=== PATIENT | female | born 1930 | race Caucasian/White ===

== ENCOUNTER 2018-11-21 11:15 | Inpatient (IN) | payer MEDICARE ==
[2018-11-21] MEDS: SODIUM CHLORIDE 0.9% 500 ML 500 ML IV SCH ×2 (12:14→13:50)
--- NOTE | 2018-11-21 12:26 | ED ---
General Adult HPI - General Chief complaint: Extremity Injury, Lower Stated complaint: RT knee pain Time Seen by Provider: 11/21/18 11:35 Source: EMS, RN notes reviewed Mode of arrival: ambulatory Limitations: altered mental status - History of Present Illness Initial comments: 88-year-old female with a past medical history of atrial fibrillation, dementia, non-Hodgkin's lymphoma presents to the emergency department for a chief complaint of right knee pain. Daughter is at bedside and relates much of history is patient does have dementia. She states that they moved out of their summer home yesterday on [address] and patient was up and down the stairs much more frequently than normal moving objects. States she was a little more confused yesterday than she normally is. Daughter states that she has chronic right knee pain from arthritis and has seen orthopedic for this. They recommend shots however she has not had any injections. They stated is always a little bit swollen. Denies any fevers at home.Patient has no other complaints at this time including shortness of breath, chest pain, abdominal pain, nausea or vomiting, headache, or visual changes. - Related Data Home Medications Medication Instructions Recorded Confirmed Atorvastatin [Lipitor] 10 mg PO DAILY 11/21/18 11/21/18 Calcium Carbonate/Vitamin D3 1 tab PO HS 11/21/18 11/21/18 [Calcium 600-Vit D3 400 Tablet] Cetirizine HCl [Zyrtec] 10 mg PO DAILY 11/21/18 11/21/18 Cyanocobalamin (Vitamin B-12) 1,000 mcg PO HS 11/21/18 11/21/18 [Vitamin B-12] Diltiazem HCl [Cartia Xt] 120 mg PO DAILY 11/21/18 11/21/18 Donepezil HCl [Aricept] 10 mg PO HS 11/21/18 11/21/18 Lavender Chew Tabs 1 tab PO HS 11/21/18 11/21/18 Meclizine HCl 12.5 mg PO DAILY PRN 11/21/18 11/21/18 Melatonin 5 mg PO HS PRN 11/21/18 11/21/18 Memantine [Namenda] 10 mg PO BID 11/21/18 11/21/18 Metoprolol Tartrate [Lopressor] 50 mg PO BID 11/21/18 11/21/18 Rivaroxaban [Xarelto] 20 mg PO HS 11/21/18 11/21/18 Allergies Allergy/AdvReac Type Severity Reaction Status Date / Time Penicillins Allergy Rash/Hives Verified 11/21/18 11:34 Sulfa (Sulfonamide Allergy Rash/Hives Verified 11/21/18 11:34 Antibiotics) Review of Systems ROS Statement: Those systems with pertinent positive or pertinent negative responses have been documented in the HPI. ROS Other: All systems not noted in ROS Statement are negative. Past Medical History Past Medical History: Atrial Fibrillation, Cancer, Dementia History of Any Multi-Drug Resistant Organisms: None Reported Past Surgical History: Hysterectomy Smoking Status: Former smoker Past Alcohol Use History: None Reported Past Drug Use History: None Reported General Exam Limitations: altered mental status General appearance: alert, in no apparent distress Head exam: Present: atraumatic, normocephalic, normal inspection Eye exam: Present: normal appearance, PERRL, EOMI. Absent: scleral icterus, conjunctival injection, periorbital swelling ENT exam: Present: normal exam, normal oropharynx, mucous membranes moist, TM's normal bilaterally, normal external ear exam Neck exam: Present: normal inspection, full ROM. Absent: tenderness, meningismus, lymphadenopathy Respiratory exam: Present: normal lung sounds bilaterally. Absent: respiratory distress, wheezes, rales, rhonchi, stridor Cardiovascular Exam: Present: regular rate, normal rhythm, normal heart sounds. Absent: systolic murmur, diastolic murmur, rubs, gallop, clicks GI/Abdominal exam: Present: soft, normal bowel sounds. Absent: distended, tenderness, guarding, rebound, rigid Course Vital Signs 11/21/18 11/21/18 11:19 14:44 Temperature 99.8 F H Pulse Rate 82 81 Respiratory 18 18 Rate Blood Pressure 121/84 137/77 O2 Sat by Pulse 94 L 94 L Oximetry EKG Findings - EKG Comments: EKG Findings:: Sinus rhythm, PVCs, ventricular rate 81, Pr interval 158, QTC 476 Procedures - Joint Aspiration/Injection Consent Obtained: verbal consent Indications: to relieve pressure/pain Side of Body: right Joint Aspirated: knee Ultrasound Guidance: No Skin Prep: Chlorhexidine (and sterile drape) Local Anesthesia Used: Lidocaine 1% Amount of Anesthesia Used (mLs): 2 Needle Size Used: 18G Syringe Size Used: 10cc Fluid Obtained: viscous Total Fluid Obtained (mls): 7 Patient Tolerated Procedure: well, no complications Medical Decision Making - Medical Decision Making 88-year-old female with past medical history atrial for depression, dementia, non-Hodgkin's a coma presents for right knee pain. Due to dementia daughter relayed much of the history. The patient did walk more yesterday and walk more stairs than normal. However today patient started to have severe right knee pain and was unable to bear weight on this. This prompted the daughter to call EMS as she could not get her out of the house to go to the doctor's office. On presentation patient has a temperature of 99.8 however this was 98.7 and 99.2 on repeat. Exam reveals an edematous right knee without erythema. Mild warmth. CBC shows a normal white blood cell count of 9. CMP revealed evidence of mild dehydration. Arthrocentesis was performed to evaluate synovial fluid and relieve pressure. Only 7 mL was obtained. I did speak with orthopedics PA about this. At this time he does not think this is a septic arthritis and his arm and starting antibiotics. States they're comfortable seeing her in the office but if she cannot walk she may need a medicine admit. I did attempt to walk the patient and she was unable to get a step secondary to pain. Daughter does not feel she can take patient home. - Lab Data Result diagrams: 11/21/18 12:09 11/21/18 12:09 Lab Results 11/21/18 11/21/18 11/21/18 Range/Units 12:09 12:09 12:09 WBC 9.1 (3.8-10.6) k/uL RBC 4.29 (3.80-5.40) m/uL Hgb 13.0 (11.4-16.0) gm/dL Hct 38.7 (34.0-46.0) % MCV 90.2 (80.0-100.0) fL MCH 30.4 (25.0-35.0) pg MCHC 33.7 (31.0-37.0) g/dL RDW 13.9 (11.5-15.5) % Plt Count 182 (150-450) k/uL Neutrophils % 70 % Lymphocytes % 21 % Monocytes % 6 % Eosinophils % 1 % Basophils % 0 % Neutrophils # 6.4 (1.3-7.7) k/uL Lymphocytes # 1.9 (1.0-4.8) k/uL Monocytes # 0.6 (0-1.0) k/uL Eosinophils # 0.1 (0-0.7) k/uL Basophils # 0.0 (0-0.2) k/uL PT (9.0-12.0) sec INR (<1.2) APTT (22.0-30.0) sec Sodium 141 (137-145) mmol/L Potassium 4.0 (3.5-5.1) mmol/L Chloride 105 (98-107) mmol/L Carbon Dioxide 27 (22-30) mmol/L Anion Gap 9 mmol/L BUN 23 H (7-17) mg/dL Creatinine 1.03 (0.52-1.04) mg/dL Est GFR (CKD-EPI)AfAm 57 (>60 ml/min/1.73 sqM) Est GFR (CKD-EPI)NonAf 49 (>60 ml/min/1.73 sqM) Glucose 123 H (74-99) mg/dL Plasma Lactic Acid Ben 0.9 (0.7-2.0) mmol/L Calcium 10.2 (8.4-10.2) mg/dL Total Bilirubin 2.3 H (0.2-1.3) mg/dL AST 24 (14-36) U/L ALT 27 (9-52) U/L Alkaline Phosphatase 95 (38-126) U/L Total Protein 7.0 (6.3-8.2) g/dL Albumin 4.1 (3.5-5.0) g/dL Urine Color Urine Appearance (Clear) Urine pH (5.0-8.0) Ur Specific Col[place] (1.001-1.035) Urine Protein (Negative) Urine Glucose (UA) (Negative) Urine Ketones (Negative) Urine Blood (Negative) Urine Nitrite (Negative) Urine Bilirubin (Negative) Urine Urobilinogen (<2.0) mg/dL Ur Leukocyte Esterase (Negative) Urine RBC (0-5) /hpf Urine WBC (0-5) /hpf Ur Squamous Epith Cells (0-4) /hpf Urine Bacteria (None) /hpf Hyaline Casts (0-2) /lpf Urine Mucus (None) /hpf Fluid Source Fluid Color Fluid Appearance Fluid RBC /uL Fluid Nucleated Cells /uL Fluid Polynuclear WBCs % Fluid Mononuclear WBCs % 11/21/18 11/21/18 11/21/18 Range/Units 12:09 12:09 15:22 WBC (3.8-10.6) k/uL RBC (3.80-5.40) m/uL Hgb (11.4-16.0) gm/dL Hct (34.0-46.0) % MCV (80.0-100.0) fL MCH (25.0-35.0) pg MCHC (31.0-37.0) g/dL RDW (11.5-15.5) % Plt Count (150-450) k/uL Neutrophils % % Lymphocytes % % Monocytes % % Eosinophils % % Basophils % % Neutrophils # (1.3-7.7) k/uL Lymphocytes # (1.0-4.8) k/uL Monocytes # (0-1.0) k/uL Eosinophils # (0-0.7) k/uL Basophils # (0-0.2) k/uL PT 11.0 (9.0-12.0) sec INR 1.0 (<1.2) APTT 27.8 (22.0-30.0) sec Sodium (137-145) mmol/L Potassium (3.5-5.1) mmol/L Chloride (98-107) mmol/L Carbon Dioxide (22-30) mmol/L Anion Gap mmol/L BUN (7-17) mg/dL Creatinine (0.52-1.04) mg/dL Est GFR (CKD-EPI)AfAm (>60 ml/min/1.73 sqM) Est GFR (CKD-EPI)NonAf (>60 ml/min/1.73 sqM) Glucose (74-99) mg/dL Plasma Lactic Acid Ben (0.7-2.0) mmol/L Calcium (8.4-10.2) mg/dL Total Bilirubin (0.2-1.3) mg/dL AST (14-36) U/L ALT (9-52) U/L Alkaline Phosphatase (38-126) U/L Total Protein (6.3-8.2) g/dL Albumin (3.5-5.0) g/dL Urine Color Yellow Urine Appearance Clear (Clear) Urine pH 5.5 (5.0-8.0) Ur Specific [place] 1.023 (1.001-1.035) Urine Protein Trace H (Negative) Urine Glucose (UA) Negative (Negative) Urine Ketones Negative (Negative) Urine Blood Negative (Negative) Urine Nitrite Negative (Negative) Urine Bilirubin Negative (Negative) Urine Urobilinogen <2.0 (<2.0) mg/dL Ur Leukocyte Esterase Small H (Negative) Urine RBC 7 H (0-5) /hpf Urine WBC 4 (0-5) /hpf Ur Squamous Epith Cells 1 (0-4) /hpf Urine Bacteria Rare H (None) /hpf Hyaline Casts 3 H (0-2) /lpf Urine Mucus Occasional H (None) /hpf Fluid Source Synovial Fluid Color Yellow Fluid Appearance Cloudy Fluid RBC 87658 /uL Fluid Nucleated Cells 28559 /uL Fluid Polynuclear WBCs 93 % Fluid Mononuclear WBCs 7 % Disposition Clinical Impression: Knee pain, Unable to bear weight Disposition: ADMITTED IP TO THIS HOSP Condition: Fair Is patient prescribed a controlled substance at d/c from ED?: No Referrals: Jd Hirsch MD [Primary Care Provider] - 1-2 days Time of Disposition: 17:23
[2018-11-21 12:37] LABS: Basophils % (A) 0 %; Eosinophils # (A) 0.1 k/uL (0-0.7); Eosinophils % (A) 1 %; HCT 38.7 % (34.0-46.0); Lymphocytes # (A) 1.9 k/uL (1.0-4.8); Lymphocytes % (A) 21 %; MCH 30.4 pg (25.0-35.0); MCHC 33.7 g/dL (31.0-37.0); MCV 90.2 fL (80.0-100.0); Mean Platelet Volume 7.4; Monocytes # (A) 0.6 k/uL (0-1.0); Monocytes % (A) 6 %; Neutrophils # (A) 6.4 k/uL (1.3-7.7); Neutrophils % (A) 70 %; Platelet Count 182 k/uL (150-450); RBC 4.29 m/uL (3.80-5.40); RDW 13.9 % (11.5-15.5); WBC 9.1 k/uL (3.8-10.6)
[2018-11-21 12:38] LABS: Appearance,Urine Clear (Clear); Bacteria,Urine Rare /hpf; Bilirubin,Urine Negative (Negative); Blood,Urine Negative (Negative); Color,Urine Yellow; Glucose,Urine (UA) Negative (Negative); Hyaline Casts,Urine 3 /lpf (0-2); Ketones,Urine Negative (Negative); Leukocyte Esterase,Urine Small (Negative); Mucus,Urine Occasional /hpf; Nitrite,Urine Negative (Negative); PH, Urine 5.5 (5.0-8.0); Protein,Urine Trace (Negative); RBC,Urine 7 /hpf (0-5); Specific Gravity,Urine 1.023 (1.001-1.035); Squamous Epithelial Cell,Urine 1 /hpf (0-4); Urobilinogen,Urine <2.0 mg/dL (<2.0); WBC,Urine 4 /hpf (0-5)
[2018-11-21 12:41] LABS: Partial Thromboplastin Time 27.8 sec (22.0-30.0)
[2018-11-21 12:46] LABS: Albumin 4.1 g/dL (3.5-5.0); Calcium 10.2 mg/dL (8.4-10.2); Total Bilirubin 2.3 mg/dL (0.2-1.3)
--- NOTE | 2018-11-21 13:16 | XR ---
EXAMINATION TYPE: XR chest 2V DATE OF EXAM: 11/21/2018 COMPARISON: 03/18/2009 INDICATION: Fever TECHNIQUE: Frontal and lateral views of the chest are obtained. FINDINGS: The heart size is normal. The pulmonary vasculature is normal. The lungs are clear. IMPRESSION: 1. No acute pulmonary process.
--- NOTE | 2018-11-21 13:18 | XR ---
EXAMINATION TYPE: XR knee 4V RT DATE OF EXAM: 11/21/2018 COMPARISON: None HISTORY: Pain TECHNIQUE: Three-view right knee FINDINGS: There is narrowing of the medial and lateral compartment joint space. Medial lateral femora l condylar spurring is present. There is loss patellofemoral joint space. There is some lateral sublu xation of the patella. Spurring from the patella is present. There is irregular bordered sclerotic area within the distal lateral metaphysis of the femur. There i s some elevation of the cortex. Additional workup is recommended. MRI with contrast is recommended. IMPRESSION: 1. Advanced degenerative changes greatest in the patellofemoral joint space. 2. Abnormal cortex and sclerosis with ill-defined border in the lateral femoral metaphysis. MRI with contrast of the knee to include this region is recommended for additional workup. Neoplastic process is not excluded.
[2018-11-21] MEDS ORDERED: LIDOCAINE 1% INJ 10MG/ML (20 ML MDV) SQ ONE (14:48)
[2018-11-21] MEDS ORDERED: MORPHINE SULFATE 4 MG/ML SYRINGE IVP STA (14:48)
[2018-11-21] MEDS ORDERED: SODIUM CHLORIDE 0.9% 500 ML 500 ML IV STA (15:37)
[2018-11-21 16:06] LABS: Appearance,BF Cloudy; Color,BF Yellow; Nucleated Cells, Body Fluid 54200 /uL; RBC, Body Fluid 10400 /uL
[2018-11-21 16:32] LABS: Mononuclear WBC,Body Fluid 7 %; Polynuclear WBC,Body Fluid 93 %; Total Cells Counted,Body Fluid 100
[2018-11-21] MEDS ORDERED: MORPHINE SULFATE 2 MG/ML SYRINGE IV PRN (17:18)
[2018-11-21] MEDS ORDERED: NALOXONE 0.4 MG/ML 1 ML VIAL IV PRN (17:18)
[2018-11-21] MEDS ORDERED: MECLIZINE 12.5 MG TAB PO PRN (18:43)
[2018-11-21] MEDS ORDERED: LORazepam 2 MG/ML INJ IV STA (18:44)
[2018-11-21] MEDS: SODIUM CHLORIDE 0.9% 1,000 ML IV SCH (18:53)
[2018-11-21] MEDS ORDERED: [UNRECOGNIZED DRUG - OTHER] PO SCH (21:00)
[2018-11-21] MEDS: LORazepam 2 MG/ML INJ IV PRN (22:51)
[2018-11-21] MEDS: MEMANTINE 10 MG TAB PO SCH (22:56)
[2018-11-21] MEDS: CALCIUM CARB-VIT D 500MG-200UN 1 EACH TAB PO SCH (22:56)
[2018-11-21] MEDS: DONEPEZIL 10 MG TAB PO SCH (22:56)
[2018-11-21] MEDS: CYANOCOBALAMIN 500 MCG TAB PO SCH (22:56)
[2018-11-21] MEDS: METOPROLOL TARTRATE 50 MG TAB PO SCH (22:57)
[2018-11-22 00:42] LABS: Total Protein, Body Fluid 3500 mg/dL
[2018-11-22 01:57] LABS: Glucose, BF Source Body Fluid; Glucose, Body Fluid 113 mg/dL
[2018-11-22] MEDS: DILTIAZEM CD 120 MG CAP.ER.24H PO SCH (09:01)
[2018-11-22] MEDS: METOPROLOL TARTRATE 50 MG TAB PO SCH ×2 (09:02→21:25)
[2018-11-22] MEDS: ATORVASTATIN 10 MG TAB PO SCH (09:02)
[2018-11-22] MEDS: MEMANTINE 10 MG TAB PO SCH ×2 (09:02→21:25)
[2018-11-22] MEDS: LORATADINE 10 MG TAB PO SCH (09:02)
[2018-11-22] MEDS: SODIUM CHLORIDE 0.9% 1,000 ML IV SCH ×2 (12:13→22:39)
[2018-11-22] MEDS: ACETAMINOPHEN TAB 325 MG TAB PO PRN (14:56)
--- NOTE | 2018-11-22 17:52 | P.CNOR ---
History of Present Illness - [facility] Consult date: 11/22/18 Requesting physician: Chase Verduzco Consult reason: joint pain History of present illness: Patient is a pleasant 88-year-old female seen at bedside this afternoon in consultation for right knee pain. She was admitted through the emergency department yesterday 11/21/2018 with a chief complaint of right knee pain. She has a past medical history of atrial fibrillation, dementia, and non-Hodgkin's lymphom. Her Daughter is at bedside and relates much of history as patient does have dementia. She states that they moved out of their summer home on 11/20/2018 on [address] and patient was up and down the stairs much more frequently than normal moving objects. Daughter states that she has chronic right knee pain from arthritis and has seen orthopedics. She continues to have significant right knee pain with range of motion today when seen at bedside. She is denying any fever or chills. She denies any redness of the knee. She has no history of gout. They stated is always a little bit swollen. Patient has no other complaints at this time including shortness of breath, chest pain, abdominal pain, nausea or vomiting, headache, or visual changes. Review of Systems All systems: negative Constitutional: Denies chills, Denies fever Eyes: denies blurred vision, denies pain Ears, nose, mouth and throat: Denies headache, Denies sore throat Cardiovascular: Denies chest pain, Denies shortness of breath Respiratory: Denies cough Gastrointestinal: Denies abdominal pain, Denies diarrhea, Denies nausea, Denies vomiting Genitourinary: Denies dysuria, Denies hematuria Musculoskeletal: Denies myalgias Integumentary: Denies pruritus, Denies rash Neurological: Denies numbness, Denies weakness Psychiatric: Denies anxiety, Denies depression Endocrine: Denies fatigue, Denies weight change Past Medical History Past Medical History: Atrial Fibrillation, Cancer, Dementia, Hyperlipidemia, Hy pertension, Osteoarthritis (OA) Additional Past Medical History / Comment(s): non hodgkins, 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 History of Any Multi-Drug Resistant Organisms: None Reported Past Surgical History: Bowel Resection, Hysterectomy, Orthopedic Surgery Past Anesthesia/Blood Transfusion Reactions: No Reported Reaction Smoking Status: Former smoker Past Alcohol Use History: None Reported Past Drug Use History: None Reported - Past Family History Mother Family Medical History: Cancer Additional Family Medical History / Comment(s): lung CA Father Family Medical History: CVA/TIA, Diabetes Mellitus Medications and Allergies Home Medications Medication Instructions Recorded Confirmed Type Atorvastatin [Lipitor] 10 mg PO DAILY 11/21/18 11/21/18 History Calcium Carbonate/Vitamin D3 1 tab PO HS 11/21/18 11/21/18 History [Calcium 600-Vit D3 400 Tablet] Cetirizine HCl [Zyrtec] 10 mg PO DAILY 11/21/18 11/21/18 History Cyanocobalamin (Vitamin B-12) 1,000 mcg PO HS 11/21/18 11/21/18 History [Vitamin B-12] Diltiazem HCl [Cartia Xt] 120 mg PO DAILY 11/21/18 11/21/18 History Donepezil HCl [Aricept] 10 mg PO HS 11/21/18 11/21/18 History Lavender Chew Tabs 1 tab PO HS 11/21/18 11/21/18 History Meclizine HCl 12.5 mg PO DAILY PRN 11/21/18 11/21/18 History Melatonin 5 mg PO HS PRN 11/21/18 11/21/18 History Memantine [Namenda] 10 mg PO BID 11/21/18 11/21/18 History Metoprolol Tartrate [Lopressor] 50 mg PO BID 11/21/18 11/21/18 History Rivaroxaban [Xarelto] 20 mg PO HS 11/21/18 11/21/18 History Allergies Allergy/AdvReac Type Severity Reaction Status Date / Time Penicillins Allergy Rash/Hives Verified 11/21/18 11:34 Sulfa (Sulfonamide Allergy Rash/Hives Verified 11/21/18 11:34 Antibiotics) Physical Examination Inspection of the right knee shows no erythema or deformity. There is mild to moderate effusion. She has pain with minimal range of motion of the right knee and is difficult to examine her fully. She is tender at the medial and lateral joint lines. The knee is not hot to touch. She has patellar apprehension. The calf is soft nontender. 2+ dorsalis pedis pulses present and less than 2 second capillary refill is present. Motor and sensation appear to be grossly intact throughout the right lower extremity. Results X-rays of the right knee show advanced [id number] tricompartmental degenerative joint disease osteoarthritis. There is also an area of cortical irregularity at the distal femoral metaphysis. - Labs Labs: Microbiology - Last 24 Hours (Table) 11/21/18 12:09 Blood Culture - Preliminary Blood No Growth after 24 hours 11/21/18 15:22 Gram Stain - Preliminary Knee - Right Body Fluid Culture - Preliminary 11/21/18 12:09 Urine Culture - Preliminary Urine,Voided H & H 11/21/18 Range/Units 12:09 Hgb 13.0 (11.4-16.0) gm/dL Hct 38.7 (34.0-46.0) % Coagulation 11/21/18 Range/Units 12:09 INR 1.0 (<1.2) Result Diagrams: 11/21/18 12:09 11/21/18 12:09 - Diagnostic results Knee x-ray: report reviewed, image reviewed Assessment and Plan (1) Knee pain Narrative/Plan: MRI with and without contrast of the right knee has been ordered per radiologist's recommendation. Would recommend continue conservative management including anti-inflammatories if patient can tolerate and okay with primary team. She may also utilize ice and a compressive knee sleeve. Should the MRI be benign may consider corticosteroid injection of the right knee. We'll continue to make recommendations and follow. Current Visit: Yes Status: Acute Priority: Medium Code(s): M25.569 - PAIN IN UNSPECIFIED KNEE SNOMED Code(s): 27579293 Time with Patient: Less than 30
[2018-11-22] MEDS: LORazepam 2 MG/ML INJ IV PRN (18:24)
--- NOTE | 2018-11-22 18:45 | HP ---
HISTORY AND PHYSICAL CHIEF COMPLAINT: Acute knee pain, confusion and dehydration. HISTORY OF PRESENT ILLNESS: This is another admission for this 88-year-old white female who has a history of hypertension and dementia. Everything was fine until she woke up on the day of admission with an extremely painful and swollen right knee. She came to the emergency room, where it was aspirated. She was quite agitated and it was decided that she should be admitted for management of her delirium while treating the knee, where pyarthrosis was a possibility. REVIEW OF SYSTEMS: Review of systems cannot be obtained reliably. Her daughter states she has not been having any headaches, chest pain, shortness of breath, abdominal pain, vomiting, diarrhea, urinary complaints, etc. Past medical history, family history, and personal and social histories reveal that she is ALLERGIC TO PENICILLIN and SULFA. She has been on: 1. Cartia XT 120 mg once a day. 2. Xarelto 20 mg once a day. 3. Atorvastatin 10 once a day. 4. Donepezil 10 mg at bedtime. 5. Metoprolol 50 mg twice a day. 6. Namenda 10 mg twice a day. 7. Calcium. 8. Vitamin B12. History is otherwise unremarkable. She has smoked in the past, but it has been years. PHYSICAL EXAMINATION: Blood pressure 124/78, pulse 54, respirations 16. She is afebrile. In general she appeared to be well developed, well nourished, in no acute distress. She was agitated. Head, ears, eyes, nose, mouth and throat were normal. Neck was supple. Chest was clear. Cardiac exam was normal. The abdomen was soft and nontender. Right knee was swollen with a large effusion. It was not particularly erythematous, but there was tenderness. She had a lot of discomfort to movement. IMPRESSION: 1. Acute arthritis of the right knee, etiology unknown. 2. Dementia. 3. Dehydration. PLAN: 1. Bed rest. 2. IV fluids. 3. Await results of arthrocentesis. 4. Orthopedic consult. MMODL / IJN: [id number] /
--- NOTE | 2018-11-22 18:50 | PN ---
PROGRESS NOTE CHIEF COMPLAINT: Acute arthritis of right knee, dehydration and dementia with delirium. HISTORY OF PRESENT ILLNESS: This lady is currently resting comfortably after sedation. She is very confused when she is aroused. Right knee is still apparently very irritable. PHYSICAL EXAMINATION: Right knee is still swollen and tender. It is not particularly erythematous. Chest is clear. Cardiac exam is normal. Abdomen is soft, nontender. IMPRESSION: 1. Acute arthritis of the right knee. 2. Dementia. 3. Delirium. PLAN: Await results of arthrocentesis and ortho consult. MMODL / IJN: [id number] /
[2018-11-22] MEDS: CYANOCOBALAMIN 500 MCG TAB PO SCH (21:25)
[2018-11-22] MEDS: DONEPEZIL 10 MG TAB PO SCH (21:25)
[2018-11-22] MEDS: CALCIUM CARB-VIT D 500MG-200UN 1 EACH TAB PO SCH (21:25)
[2018-11-23] MEDS: METOPROLOL TARTRATE 50 MG TAB PO SCH ×2 (10:14→23:06)
[2018-11-23] MEDS: LORATADINE 10 MG TAB PO SCH (10:15)
[2018-11-23] MEDS: DILTIAZEM CD 120 MG CAP.ER.24H PO SCH (10:15)
[2018-11-23] MEDS: MEMANTINE 10 MG TAB PO SCH ×2 (10:15→23:06)
[2018-11-23] MEDS: ATORVASTATIN 10 MG TAB PO SCH (10:15)
[2018-11-23] MEDS: LORazepam 2 MG/ML INJ IV PRN ×2 (16:51→23:05)
[2018-11-23] MEDS: CYANOCOBALAMIN 500 MCG TAB PO SCH (23:06)
[2018-11-23] MEDS: CALCIUM CARB-VIT D 500MG-200UN 1 EACH TAB PO SCH (23:06)
[2018-11-23] MEDS: DONEPEZIL 10 MG TAB PO SCH (23:06)
[2018-11-23] MEDS: RIVAROXABAN 20 MG TAB PO SCH (23:06)
[2018-11-23] MEDS: SODIUM CHLORIDE 0.9% 1,000 ML IV SCH (23:34)
[2018-11-24] MEDS: MEMANTINE 10 MG TAB PO SCH ×2 (09:45→20:53)
[2018-11-24] MEDS: METOPROLOL TARTRATE 50 MG TAB PO SCH ×2 (09:45→20:53)
[2018-11-24] MEDS: LORATADINE 10 MG TAB PO SCH (09:45)
[2018-11-24] MEDS: ATORVASTATIN 10 MG TAB PO SCH (09:45)
[2018-11-24] MEDS: DILTIAZEM CD 120 MG CAP.ER.24H PO SCH (09:45)
[2018-11-24] MEDS: methylPREDNISolone 4 MG TAB TAPER PO SCH (11:21)
--- NOTE | 2018-11-24 15:00 | P.PN ---
Subjective Progress Note Date: 11/24/18 Principal diagnosis: Right knee pain Patient is seen at bedside this morning. We are following for her for her right knee pain. She was unable to tolerate the MRI. Her knee pain has improved per staff and her daughter who is at bedside. There are no new complaints. Objective - Vital Signs Vital signs: Vital Signs Temp 97.9 F 11/24/18 07:00 Pulse 90 11/24/18 08:30 Resp 16 11/24/18 08:30 BP 116/79 11/24/18 07:00 Pulse Ox 94 L 11/24/18 07:00 Intake & Output 11/23/18 11/24/18 11/24/18 18:59 06:59 18:59 Output Total 200 200 Balance -200 -200 Output: Urine 200 200 Other: Voiding Method Bedside Commode Bedside Commode Diaper Diaper # Voids 1 1 1 - Exam The knee is benign to inspection. It is not hot to touch. No erythema or echymosis. Improved passive ROM with flexion to 80 and full extension. NVI. Calf SNT. 2+ DP pulse - Constitutional General appearance: Present: no acute distress - Labs CBC & Chem 7: 11/21/18 12:09 11/21/18 12:09 Labs: Microbiology - Last 24 Hours (Table) 11/21/18 12:09 Blood Culture - Preliminary Blood No Growth after 72 hours Assessment and Plan (1) Knee pain Narrative/Plan: She has improved with her pain and likely has an acute exacerbation of knee OA/DJD. She may try a medrol dose pack and progress with activity as tolerated. She may f/u as an out patient. We will revisit if she worsens or requested. Current Visit: Yes Status: Acute Priority: Medium Code(s): M25.569 - PAIN IN UNSPECIFIED KNEE SNOMED Code(s): 58712447 Time with Patient: Less than 30
--- NOTE | 2018-11-24 16:32 | PN ---
PROGRESS NOTE CHIEF COMPLAINT: Dehydration, syncope, dementia and acute arthritis of the right knee. HISTORY OF PRESENT ILLNESS: This lady is doing a little bit better. Rehydration is occurring. So far, studies on the joint fluid from the right knee have been nondiagnostic. She is being seen by Orthopedics. PHYSICAL EXAMINATION: Chest is clear. Cardiac exam is normal. Abdomen is soft and nontender. Right knee is still hypertrophic and somewhat irritable, but not inflamed. IMPRESSION: 1. Acute arthritis of the right knee. 2. Dementia. 3. Dehydration. 4. Syncope. PLAN: Continue with rehydration, physical therapy and await further recommendations from Orthopedics. She will probably have to go to Rehab after this hospitalization. MMODL / IJN: [id number] /
--- NOTE | 2018-11-24 20:14 | PN ---
PROGRESS NOTE CHIEF COMPLAINT: Dehydration, agitation and acute arthritis of the right knee. HISTORY OF PRESENT ILLNESS: This lady is a little more comfortable and having a little bit less pain. Studies on her knee suggest that this is just an acute osteoarthritis. PHYSICAL EXAMINATION: She is confused, but she is arousable. Chest is clear. Cardiac exam is normal. Abdomen is soft, nontender. Right knee seems to be a little bit smaller and a little less warm. IMPRESSION: 1. Acute osteoarthritis of the right knee. 2. Dementia. 3. Delirium. PLAN: 1. Will stop the Ativan. 2. She has been started on a Medrol Dosepak. 3. She has been referred for discharge planning. MMODL / IJN: [id number] /
[2018-11-24] MEDS: SODIUM CHLORIDE 0.9% 1,000 ML IV SCH (20:53)
[2018-11-24] MEDS: CYANOCOBALAMIN 500 MCG TAB PO SCH (20:53)
[2018-11-24] MEDS: MELATONIN 5 MG TABLET PO PRN (20:53)
[2018-11-24] MEDS: DONEPEZIL 10 MG TAB PO SCH (20:53)
[2018-11-24] MEDS: CALCIUM CARB-VIT D 500MG-200UN 1 EACH TAB PO SCH (20:53)
[2018-11-24] MEDS: RIVAROXABAN 20 MG TAB PO SCH (20:53)
[2018-11-25] MEDS: methylPREDNISolone 4 MG TAB TAPER PO SCH (09:17)
[2018-11-25] MEDS: METOPROLOL TARTRATE 50 MG TAB PO SCH ×2 (09:17→20:15)
[2018-11-25] MEDS: LORATADINE 10 MG TAB PO SCH (09:17)
[2018-11-25] MEDS: MEMANTINE 10 MG TAB PO SCH ×2 (09:17→20:15)
[2018-11-25] MEDS: ATORVASTATIN 10 MG TAB PO SCH (09:17)
[2018-11-25] MEDS: DILTIAZEM CD 120 MG CAP.ER.24H PO SCH (09:17)
--- NOTE | 2018-11-25 15:26 | PN ---
PROGRESS NOTE CHIEF COMPLAINT: Acute arthritis right knee and delirium. HISTORY OF PRESENT ILLNESS: This lady is doing a lot better. and she is doing well. She is starting to be able to walk on the knee. PHYSICAL EXAM: Knee was less intensely swollen and erythematous. Chest is clear. Cardiac exam is normal. IMPRESSION: 1. Acute arthritis of the right knee. 2. Dementia. 3. Delirium. PLAN: Continue to increase activity and she may be going to a snf after discharge. MMODL / IJN: [id number] /
[2018-11-25] MEDS: ACETAMINOPHEN TAB 325 MG TAB PO PRN (16:39)
[2018-11-25] MEDS ORDERED: HALOPERIDOL LACTATE 5 MG/ML 1 ML VIAL IM PRN (17:20)
[2018-11-25] MEDS: DONEPEZIL 10 MG TAB PO SCH (20:15)
[2018-11-25] MEDS: CYANOCOBALAMIN 500 MCG TAB PO SCH (20:15)
[2018-11-25] MEDS: CALCIUM CARB-VIT D 500MG-200UN 1 EACH TAB PO SCH (20:15)
[2018-11-25] MEDS: MELATONIN 5 MG TABLET PO PRN (20:16)
[2018-11-25] MEDS: SODIUM CHLORIDE 0.9% 1,000 ML IV SCH (20:27)
[2018-11-25] MEDS: RIVAROXABAN 15 MG TAB PO SCH (22:28)
[2018-11-26] MEDS: LORATADINE 10 MG TAB PO SCH (08:47)
[2018-11-26] MEDS: DILTIAZEM CD 120 MG CAP.ER.24H PO SCH (08:47)
[2018-11-26] MEDS: METOPROLOL TARTRATE 50 MG TAB PO SCH ×2 (08:47→20:56)
[2018-11-26] MEDS: methylPREDNISolone 4 MG TAB TAPER PO SCH (08:47)
[2018-11-26] MEDS: ACETAMINOPHEN TAB 325 MG TAB PO PRN ×2 (08:47→16:41)
[2018-11-26] MEDS: MEMANTINE 10 MG TAB PO SCH ×2 (08:47→20:56)
[2018-11-26] MEDS: ATORVASTATIN 10 MG TAB PO SCH (08:47)
--- NOTE | 2018-11-26 19:43 | PN ---
PROGRESS NOTE DATE OF SERVICE: 11/26/2018. CHIEF COMPLAINT: Mental status changes, delirium, dementia and acute arthritis of the right knee. HISTORY OF PRESENT ILLNESS: This lady is doing a little bit better. She is more awake and alert and the knee is not bothering her nearly as much. PHYSICAL EXAMINATION: Color is good. Chest is clear. Vital signs are normal. Abdomen is soft, nontender. the knee is still hypertrophic, but not red or hot. She does have decreased range of motion in the knee. IMPRESSION: 1. Acute osteoarthritis, right knee. 2. Dementia. 3. Delirium. PLAN: Probably discharge tomorrow either home with rehab or to rehab facility. MMODL / IJN: [id number] /
[2018-11-26] MEDS: MELATONIN 5 MG TABLET PO PRN (20:56)
[2018-11-26] MEDS: CYANOCOBALAMIN 500 MCG TAB PO SCH (20:56)
[2018-11-26] MEDS: CALCIUM CARB-VIT D 500MG-200UN 1 EACH TAB PO SCH (20:56)
[2018-11-26] MEDS: DONEPEZIL 10 MG TAB PO SCH (20:56)
[2018-11-26] MEDS: SODIUM CHLORIDE 0.9% 1,000 ML IV SCH ×2 (21:01→21:02)
[2018-11-26] MEDS: RIVAROXABAN 15 MG TAB PO SCH (21:50)
[2018-11-26] MEDS ORDERED: LORazepam 2 MG/ML INJ IM PRN (23:59)
[2018-11-27] MEDS: SODIUM CHLORIDE 0.9% 1,000 ML IV SCH ×2 (09:21→21:09)
[2018-11-27] MEDS: MEMANTINE 10 MG TAB PO SCH ×2 (09:22→20:36)
[2018-11-27] MEDS: LORATADINE 10 MG TAB PO SCH (09:22)
[2018-11-27] MEDS: METOPROLOL TARTRATE 50 MG TAB PO SCH ×2 (09:22→20:36)
[2018-11-27] MEDS: ATORVASTATIN 10 MG TAB PO SCH (09:22)
[2018-11-27] MEDS: DILTIAZEM CD 120 MG CAP.ER.24H PO SCH (09:22)
[2018-11-27] MEDS: methylPREDNISolone 4 MG TAB TAPER PO SCH (09:23)
[2018-11-27 10:37] VITALS: RESP 16
[2018-11-27 14:56] VITALS: PULSE 81; TEMP 97.9
--- NOTE | 2018-11-27 19:49 | PN ---
PROGRESS NOTE CHIEF COMPLAINT: Acute arthritis of the right knee, dementia and delirium. HISTORY OF PRESENT ILLNESS: This lady was doing well until last night; she suddenly became extremely agitated and the Haldol did not help. Ativan was administered and she rested the rest of the night. Her daughter is making arrangements for her to go to a [facility] for [facility]hab. PHYSICAL EXAMINATION: Chest is clear. Cardiac exam is normal. The abdomen is nontender. IMPRESSION: 1. Acute osteoarthritis of the right knee. 2. Delirium. 3. Dementia. PLAN: Work on a discharge plan and location. MMODL / IJN: [id number] /
[2018-11-27] MEDS: CYANOCOBALAMIN 500 MCG TAB PO SCH (20:36)
[2018-11-27] MEDS: CALCIUM CARB-VIT D 500MG-200UN 1 EACH TAB PO SCH (20:36)
[2018-11-27] MEDS: RIVAROXABAN 15 MG TAB PO SCH (20:36)
[2018-11-27] MEDS: DONEPEZIL 10 MG TAB PO SCH (20:36)
[2018-11-27] MEDS: MELATONIN 5 MG TABLET PO PRN (20:39)
[2018-11-28] MEDS: MEMANTINE 10 MG TAB PO SCH (07:40)
[2018-11-28] MEDS: ATORVASTATIN 10 MG TAB PO SCH (07:40)
[2018-11-28] MEDS: methylPREDNISolone 4 MG TAB TAPER PO SCH (07:40)
[2018-11-28] MEDS: DILTIAZEM CD 120 MG CAP.ER.24H PO SCH (07:40)
[2018-11-28] MEDS: METOPROLOL TARTRATE 50 MG TAB PO SCH (07:40)
[2018-11-28] MEDS: LORATADINE 10 MG TAB PO SCH (07:40)
[2018-11-28] MEDS: SODIUM CHLORIDE 0.9% 1,000 ML IV SCH (07:41)
[2018-11-28 07:47] VITALS: BP 145/84
--- NOTE | 2018-11-28 13:35 | DS ---
DISCHARGE SUMMARY CHIEF COMPLAINT: Acute pain of the right knee with delirium, dehydration and dementia. HISTORY OF PRESENT ILLNESS AND PHYSICAL EXAM: Details of this lady's history and physical can be found in the initial workup. LABORATORY STUDIES: While she was in the hospital she had laboratory studies, details of which can be found in the laboratory section of her chart. COURSE IN HOSPITAL: After admission she was placed on bedrest, started on intravenous fluids and she was seen by Orthopedics. She had an arthrocentesis which failed to demonstrate any other possible etiologies including infection, gout, etc., and it was determined that she had an acute osteoarthritic flare up. While she was in the hospital, she was rehydrated and she had difficulty with delirium, particularly at night. It was the daughter's feeling that she could benefit from rehab and she was lined up to go to [facility] on the for physical therapy and rehab. FINAL DIAGNOSES: 1. Acute osteoarthritis of the right knee. 2. Dehydration. 3. Delirium. 4. Dementia. 5. History of hypertension. OPERATIONS: None. CONSULTATION: Orthopedics. She is improved. MMODL / IJN: [id number] /
== END 2018-11-28 16:01 | DRG 880 ==
LOC: EC 11:15 → 4SSUR 17:50 → OBSVTOIN 11-24 08:25
PROVIDERS: ADMIT Family Medicine; ATTEND Family Medicine
PROC: 0S9C3ZX Drainage of Right Knee Joint, Percutaneous Approach, Diagnostic (ICD-10-PCS; principal; 2018-11-21)
DX: F05 Delirium due to known physiological condition (principal); M17.11 Unilateral primary osteoarthritis, right knee; E78.5 Hyperlipidemia, unspecified; E86.0 Dehydration; R45.1 Restlessness and agitation; F03.90 Unspecified dementia, unspecified severity, without behavioral disturbance, psychotic disturbance, mood disturbance, and anxiety; G89.29 Other chronic pain; I10 Essential (primary) hypertension; I48.91 Unspecified atrial fibrillation; Z79.01 Long term (current) use of anticoagulants; Z79.899 Other long term (current) drug therapy; Z80.1 Family history of malignant neoplasm of trachea, bronchus and lung; Z83.3 Family history of diabetes mellitus; Z85.72 Personal history of non-Hodgkin lymphomas; Z87.891 Personal history of nicotine dependence; Z90.710 Acquired absence of both cervix and uterus; Z90.49 Acquired absence of other specified parts of digestive tract; Z88.0 Allergy status to penicillin; Z88.2 Allergy status to sulfonamides
CPT/HCPCS: 20610; 36415; 71046; 80053; 81001; 82945; 83605; 83615; 84157; 85025; 85610; 85730; 87040; 87070; 87077; 87086; 87186; 87205; 89050; 89060; 93005; 96374; 96375; 99285

== ENCOUNTER 2019-01-02 17:04 | Emergency (ER) | payer MEDICARE ==
[2019-01-02] MEDS ORDERED: SODIUM CHLORIDE 0.9% 1,000 ML IV ONE (17:34)
--- NOTE | 2019-01-02 17:34 | ED ---
Altered Mental Status HPI - General Chief Complaint: Altered Mental Status Stated Complaint: Altered mental status Time Seen by Provider: 01/02/19 17:10 Source: patient, family, RN notes reviewed, old records reviewed Mode of arrival: ambulatory Limitations: altered mental status - History of Present Illness Initial Comments: This is a 71-year-old female the ER for evaluation patient resents today for evaluation regards to altered mental status with severe history of dementia. Patient has known history of dementia sent down especially. She was more benzodiazepines. Otherwise has been without significant complaint lately no other change in medications. Recent hospitalization for knee pain and difficulty ambulated. Patient resents with daughter is daughter states that she has been in a manic-like state. Not suffered 24 hours MD Complaint: altered mental status, confusion -: days(s) Severity: severe Consistency of Symptoms: getting worse Context: history of similar presentation Associated Symptoms: weakness - Related Data Home Medications Medication Instructions Recorded Confirmed Atorvastatin [Lipitor] 10 mg PO DAILY 11/21/18 01/02/19 Calcium Carbonate/Vitamin D3 1 tab PO HS 11/21/18 01/02/19 [Calcium 600-Vit D3 400 Tablet] Cetirizine HCl [Zyrtec] 10 mg PO DAILY 11/21/18 01/02/19 Cyanocobalamin (Vitamin B-12) 1,000 mcg PO HS 11/21/18 01/02/19 [Vitamin B-12] Diltiazem HCl [Cartia Xt] 120 mg PO DAILY 11/21/18 01/02/19 Donepezil HCl [Aricept] 10 mg PO HS 11/21/18 01/02/19 Melatonin 5 mg PO HS PRN 11/21/18 01/02/19 Memantine [Namenda] 10 mg PO BID 11/21/18 01/02/19 Rivaroxaban [Xarelto] 20 mg PO HS 11/21/18 01/02/19 Citalopram Hydrobromide [CeleXA] 10 mg PO DAILY 01/02/19 01/02/19 Metoprolol Tartrate 25 mg PO BID 01/02/19 01/02/19 busPIRone HCL 5 mg PO TID PRN 01/02/19 01/02/19 Allergies Allergy/AdvReac Type Severity Reaction Status Date / Time Penicillins Allergy Rash/Hives Verified 11/21/18 11:34 Sulfa (Sulfonamide Allergy Rash/Hives Verified 11/21/18 11:34 Antibiotics) Review of Systems ROS Statement: Those systems with pertinent positive or pertinent negative responses have been documented in the HPI. ROS Other: All systems not noted in ROS Statement are negative. 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 History of Any Multi-Drug Resistant Organisms: None Reported Past Surgical History: Bowel Resection, Hysterectomy, Orthopedic Surgery Past Anesthesia/Blood Transfusion Reactions: No Reported Reaction Past Psychological History: No Psychological Hx Reported Smoking Status: Former smoker Past Alcohol Use History: None Reported Past Drug Use History: None Reported - Past Family History Mother Family Medical History: Cancer Additional Family Medical History / Comment(s): lung CA Father Family Medical History: CVA/TIA, Diabetes Mellitus General Exam Limitations: altered mental status General appearance: alert, in no apparent distress Head exam: Present: atraumatic, normocephalic, normal inspection Eye exam: Present: normal appearance, PERRL, EOMI. Absent: scleral icterus, conjunctival injection, periorbital swelling ENT exam: Present: normal exam, mucous membranes moist Neck exam: Present: normal inspection. Absent: tenderness, meningismus, lymphadenopathy Respiratory exam: Present: normal lung sounds bilaterally. Absent: respiratory distress, wheezes, rales, rhonchi, stridor Cardiovascular Exam: Present: regular rate, normal rhythm, normal heart sounds. Absent: systolic murmur, diastolic murmur, rubs, gallop, clicks GI/Abdominal exam: Present: soft, normal bowel sounds. Absent: distended, tenderness, guarding, rebound, rigid Extremities exam: Present: normal inspection, full ROM, normal capillary refill. Absent: tenderness, pedal edema, joint swelling, calf tenderness Back exam: Present: normal inspection Neurological exam: Present: alert, oriented X3, CN II-XII intact Psychiatric exam: Present: normal affect, normal mood Skin exam: Present: warm, dry, intact, normal color. Absent: rash Course Vital Signs 01/02/19 01/02/19 17:08 18:52 Temperature 97.4 F L Pulse Rate 61 91 Respiratory 19 18 Rate Blood Pressure 132/92 O2 Sat by Pulse 95 97 Oximetry - Reevaluation(s) Reevaluation #1: 01/02/19 19:07 Medical record is reviewed Reevaluation #2: 01/02/19 19:08 Visit with patient is resting comfortably Medical Decision Making - Medical Decision Making 88 female the ER for eversion of worsening dementia altered mental status and sundowners. No acute cause found. Patient be treated for UTI can be discharged home - Lab Data Result diagrams: 01/02/19 18:05 01/02/19 18:05 Lab Results 01/02/19 01/02/19 01/02/19 Range/Units 18:01 18:05 18:05 WBC 8.7 (3.8-10.6) k/uL RBC 4.26 (3.80-5.40) m/uL Hgb 13.3 (11.4-16.0) gm/dL Hct 40.4 (34.0-46.0) % MCV 94.8 (80.0-100.0) fL MCH 31.2 (25.0-35.0) pg MCHC 32.9 (31.0-37.0) g/dL RDW 15.2 (11.5-15.5) % Plt Count 255 (150-450) k/uL Neutrophils % 72 % Lymphocytes % 19 % Monocytes % 6 % Eosinophils % 0 % Basophils % 1 % Neutrophils # 6.3 (1.3-7.7) k/uL Lymphocytes # 1.7 (1.0-4.8) k/uL Monocytes # 0.6 (0-1.0) k/uL Eosinophils # 0.0 (0-0.7) k/uL Basophils # 0.1 (0-0.2) k/uL PT (9.0-12.0) sec INR (<1.2) APTT (22.0-30.0) sec Sodium (137-145) mmol/L Potassium (3.5-5.1) mmol/L Chloride (98-107) mmol/L Carbon Dioxide (22-30) mmol/L Anion Gap mmol/L BUN (7-17) mg/dL Creatinine (0.52-1.04) mg/dL Est GFR (CKD-EPI)AfAm (>60 ml/min/1.73 sqM) Est GFR (CKD-EPI)NonAf (>60 ml/min/1.73 sqM) Glucose (74-99) mg/dL Calcium (8.4-10.2) mg/dL Phosphorus (2.5-4.5) mg/dL Magnesium (1.6-2.3) mg/dL Total Bilirubin (0.2-1.3) mg/dL AST (14-36) U/L ALT (9-52) U/L Alkaline Phosphatase (38-126) U/L Ammonia <9 (<30) umol/L Creatine Kinase (30-135) U/L Troponin I (0.000-0.034) ng/mL Total Protein (6.3-8.2) g/dL Albumin (3.5-5.0) g/dL Urine Color Yellow Urine Appearance Cloudy H (Clear) Urine pH 5.5 (5.0-8.0) Ur Specific [place] 1.024 (1.001-1.035) Urine Protein 2+ H (Negative) Urine Glucose (UA) Trace H (Negative) Urine Ketones 1+ H (Negative) Urine Blood Trace H (Negative) Urine Nitrite Negative (Negative) Urine Bilirubin 1+ H (Negative) Urine Urobilinogen 3.0 (<2.0) mg/dL Ur Leukocyte Esterase Large H (Negative) Urine WBC 59 H (0-5) /hpf Ur Squamous Epith Cells 3 (0-4) /hpf Amorphous Sediment Rare H (None) /hpf Urine Bacteria Occasional H (None) /hpf Hyaline Casts 40 H (0-2) /lpf Urine Mucus Rare H (None) /hpf Urine Opiates Screen Not Detected (NotDetected) Ur Oxycodone Screen Not Detected (NotDetected) Urine Methadone Screen Not Detected (NotDetected) Ur Propoxyphene Screen Not Detected (NotDetected) Ur Barbiturates Screen Not Detected (NotDetected) U Tricyclic Antidepress Not Detected (NotDetected) Ur Phencyclidine Scrn Not Detected (NotDetected) Ur Amphetamines Screen Not Detected (NotDetected) U Methamphetamines Scrn Not Detected (NotDetected) U Benzodiazepines Scrn Detected H (NotDetected) Urine Cocaine Screen Not Detected (NotDetected) U Marijuana (THC) Screen Not Detected (NotDetected) 01/02/19 01/02/19 01/02/19 Range/Units 18:05 18:05 18:05 WBC (3.8-10.6) k/uL RBC (3.80-5.40) m/uL Hgb (11.4-16.0) gm/dL Hct (34.0-46.0) % MCV (80.0-100.0) fL MCH (25.0-35.0) pg MCHC (31.0-37.0) g/dL RDW (11.5-15.5) % Plt Count (150-450) k/uL Neutrophils % % Lymphocytes % % Monocytes % % Eosinophils % % Basophils % % Neutrophils # (1.3-7.7) k/uL Lymphocytes # (1.0-4.8) k/uL Monocytes # (0-1.0) k/uL Eosinophils # (0-0.7) k/uL Basophils # (0-0.2) k/uL PT 11.2 (9.0-12.0) sec INR 1.1 (<1.2) APTT 24.8 (22.0-30.0) sec Sodium 144 (137-145) mmol/L Potassium 3.5 (3.5-5.1) mmol/L Chloride 107 (98-107) mmol/L Carbon Dioxide 27 (22-30) mmol/L Anion Gap 10 mmol/L BUN 19 H (7-17) mg/dL Creatinine 1.49 H (0.52-1.04) mg/dL Est GFR (CKD-EPI)AfAm 36 (>60 ml/min/1.73 sqM) Est GFR (CKD-EPI)NonAf 32 (>60 ml/min/1.73 sqM) Glucose 129 H (74-99) mg/dL Calcium 10.5 H (8.4-10.2) mg/dL Phosphorus 3.4 (2.5-4.5) mg/dL Magnesium 1.7 (1.6-2.3) mg/dL Total Bilirubin 1.4 H (0.2-1.3) mg/dL AST 26 (14-36) U/L ALT 31 (9-52) U/L Alkaline Phosphatase 87 (38-126) U/L Ammonia (<30) umol/L Creatine Kinase 241 H (30-135) U/L Troponin I 0.022 (0.000-0.034) ng/mL Total Protein 7.1 (6.3-8.2) g/dL Albumin 4.6 (3.5-5.0) g/dL Urine Color Urine Appearance (Clear) Urine pH (5.0-8.0) Ur Specific [place] (1.001-1.035) Urine Protein (Negative) Urine Glucose (UA) (Negative) Urine Ketones (Negative) Urine Blood (Negative) Urine Nitrite (Negative) Urine Bilirubin (Negative) Urine Urobilinogen (<2.0) mg/dL Ur Leukocyte Esterase (Negative) Urine WBC (0-5) /hpf Ur Squamous Epith Cells (0-4) /hpf Amorphous Sediment (None) /hpf Urine Bacteria (None) /hpf Hyaline Casts (0-2) /lpf Urine Mucus (None) /hpf Urine Opiates Screen (NotDetected) Ur Oxycodone Screen (NotDetected) Urine Methadone Screen (NotDetected) Ur Propoxyphene Screen (NotDetected) Ur Barbiturates Screen (NotDetected) U Tricyclic Antidepress (NotDetected) Ur Phencyclidine Scrn (NotDetected) Ur Amphetamines Screen (NotDetected) U Methamphetamines Scrn (NotDetected) U Benzodiazepines Scrn (NotDetected) Urine Cocaine Screen (NotDetected) U Marijuana (THC) Screen (NotDetected) Disposition Clinical Impression: Altered mental status, UTI (urinary tract infection) Disposition: HOME SELF-CARE Condition: Good Instructions (If sedation given, give patient instructions): Urinary Tract Infection in Women (ED) Is patient prescribed a controlled substance at d/c from ED?: No Referrals: Jd Hirsch MD [Primary Care Provider] - 1-2 days
[2019-01-02] MEDS ORDERED: DIAZEPAM 5 MG/ML 2 ML INJ IVP STA (17:35)
[2019-01-02 18:18] LABS: Basophils # (A) 0.1 k/uL (0-0.2); Basophils % (A) 1 %; Eosinophils % (A) 0 %; HCT 40.4 % (34.0-46.0); HGB 13.3 gm/dL (11.4-16.0); Lymphocytes # (A) 1.7 k/uL (1.0-4.8); Lymphocytes % (A) 19 %; MCH 31.2 pg (25.0-35.0); MCHC 32.9 g/dL (31.0-37.0); MCV 94.8 fL (80.0-100.0); Mean Platelet Volume 7.5; Monocytes # (A) 0.6 k/uL (0-1.0); Monocytes % (A) 6 %; Neutrophils # (A) 6.3 k/uL (1.3-7.7); Neutrophils % (A) 72 %; Platelet Count 255 k/uL (150-450); RBC 4.26 m/uL (3.80-5.40); RDW 15.2 % (11.5-15.5); WBC 8.7 k/uL (3.8-10.6)
[2019-01-02 18:21] LABS: Amorphous Sediment,Urine Rare /hpf; Appearance,Urine Cloudy (Clear); Bacteria,Urine Occasional /hpf; Bilirubin,Urine 1+ (Negative); Blood,Urine Trace (Negative); Color,Urine Yellow; Glucose,Urine (UA) Trace (Negative); Hyaline Casts,Urine 40 /lpf (0-2); Ketones,Urine 1+ (Negative); Leukocyte Esterase,Urine Large (Negative); Mucus,Urine Rare /hpf; Nitrite,Urine Negative (Negative); PH, Urine 5.5 (5.0-8.0); Protein,Urine 2+ (Negative); Specific Gravity,Urine 1.024 (1.001-1.035); Squamous Epithelial Cell,Urine 3 /hpf (0-4); WBC,Urine 59 /hpf (0-5)
[2019-01-02 18:22] LABS: Albumin 4.6 g/dL (3.5-5.0); Calcium 10.5 mg/dL (8.4-10.2); Magnesium 1.7 mg/dL (1.6-2.3); Phosphorus 3.4 mg/dL (2.5-4.5); Potassium 3.5 mmol/L (3.5-5.1); Total Bilirubin 1.4 mg/dL (0.2-1.3); Total Protein 7.1 g/dL (6.3-8.2)
[2019-01-02 18:23] LABS: INR 1.1 (<1.2); Partial Thromboplastin Time 24.8 sec (22.0-30.0); Prothrombin Time 11.2 sec (9.0-12.0)
[2019-01-02 18:26] LABS: Amphetamine Screen,Urine Not Detected (NotDetected); Cocaine Screen,Urine Not Detected (NotDetected); Opiate Screen,Urine Not Detected (NotDetected); Phencyclidine Screen,Urine Not Detected (NotDetected); Urn Cannabinoid Scrn Not Detected (NotDetected)
[2019-01-02 18:27] LABS: Barbiturate Screen,Urine Not Detected (NotDetected); Benzodiazepines Screen,Urine Detected (NotDetected); Methadone Screen, Urine Not Detected (NotDetected); Oxycodone Screen, Urine Not Detected (NotDetected); Tricyclic Antidepressant,Urine Not Detected (NotDetected)
[2019-01-02] MEDS ORDERED: cefTRIAXone IN SWFI 1,000 MG/10 ML SYRINGE IVP STA (19:02)
[2019-01-02 20:16] VITALS: BP 127/89; PULSE 88; RESP 17; TEMP 97.7
== END 2019-01-02 20:16 | disposition home or self-care (01) ==
LOC: EC 17:04
DX: R41.82 Altered mental status, unspecified (principal); N39.0 Urinary tract infection, site not specified; R53.1 Weakness; I48.91 Unspecified atrial fibrillation; F03.90 Unspecified dementia, unspecified severity, without behavioral disturbance, psychotic disturbance, mood disturbance, and anxiety; E78.5 Hyperlipidemia, unspecified; I10 Essential (primary) hypertension; Z87.891 Personal history of nicotine dependence; Z85.72 Personal history of non-Hodgkin lymphomas; Z79.01 Long term (current) use of anticoagulants; Z79.899 Other long term (current) drug therapy; Z88.0 Allergy status to penicillin; Z88.2 Allergy status to sulfonamides
CPT/HCPCS: 36415; 80053; 82140; 82550; 83735; 84100; 84484; 85025; 85610; 85730; 81001; 80306; 99285; 96374; 96375; 96361; J3360; J0696

== ENCOUNTER 2019-04-22 18:46 | Emergency (ER) | payer MEDICARE ==
[2019-04-22 19:10] VITALS: TEMP 98.4
[2019-04-22] MEDS ORDERED: SODIUM CHLORIDE 0.9% 500 ML 500 ML IV ONE (19:19)
--- NOTE | 2019-04-22 19:39 | ED ---
General Adult HPI - General Chief complaint: Nausea/Vomiting/Diarrhea Stated complaint: dehydration Time Seen by Provider: 04/22/19 19:10 Source: patient, RN notes reviewed, old records reviewed Mode of arrival: wheelchair Limitations: altered mental status - History of Present Illness Initial comments: 88-year-old female patient past history significant for dementia presents to ED for evaluation of possible dehydration. History is performed by daughter who is primary caregiver. She states that patient recently started on Risperdal for mood. Reports that this was 3 days ago. Reports the patient has had some loose stools and a mild cough since. Patient evaluated for dehydration. Does for the patient did have one stool that was dark in nature over his return to his normal color. Denies any gross blood. Denies any fevers. Denies any other c omplaints. Patient personally does not report any complaints. Systemic: Pt denies fatigue, fever/chills, rash. Pt denies weakness, night sweats, weight loss. Neuro: Pt denies headache, visual disturbances, syncope or pre-syncope. HEENT: Pt denies ocular discharge or irritation, otalgia, rhinorrhea, pharyngitis or notable lymphadenopathy. Cardiopulmonary: Pt denies chest pain, SOB, heart palpitations, dyspnea on exertion. Abdominal/GI: Pt denies abdominal pain, n/v. : Pt denies dysuria, burning w/ urination, frequency/urgency. Denies new onset urinary or bowel incontinence. MSK: Pt denies myalgia, loss of strength or function in extremities. Neuro: Pt denies new onset weakness, paresthesias. - Related Data Home Medications Medication Instructions Recorded Confirmed Atorvastatin [Lipitor] 10 mg PO DAILY 11/21/18 01/02/19 Calcium Carbonate/Vitamin D3 1 tab PO HS 11/21/18 01/02/19 [Calcium 600-Vit D3 400 Tablet] Cetirizine HCl [Zyrtec] 10 mg PO DAILY 11/21/18 01/02/19 Cyanocobalamin (Vitamin B-12) 1,000 mcg PO HS 11/21/18 01/02/19 [Vitamin B-12] Diltiazem HCl [Cartia Xt] 120 mg PO DAILY 11/21/18 01/02/19 Donepezil HCl [Aricept] 10 mg PO HS 11/21/18 01/02/19 Melatonin 5 mg PO HS PRN 11/21/18 01/02/19 Memantine [Namenda] 10 mg PO BID 11/21/18 01/02/19 Rivaroxaban [Xarelto] 20 mg PO HS 11/21/18 01/02/19 Citalopram Hydrobromide [CeleXA] 10 mg PO DAILY 01/02/19 01/02/19 Metoprolol Tartrate 25 mg PO BID 01/02/19 01/02/19 busPIRone HCL 5 mg PO TID PRN 01/02/19 01/02/19 Previous Rx's Medication Instructions Recorded Nitrofurantoin Monohyd/M-Cryst 100 mg PO Q12HR #10 cap 01/02/19 [Macrobid] Allergies Allergy/AdvReac Type Severity Reaction Status Date / Time Penicillins Allergy Rash/Hives Verified 04/22/19 19:09 Sulfa (Sulfonamide Allergy Rash/Hives Verified 04/22/19 19:09 Antibiotics) Review of Systems ROS Statement: Those systems with pertinent positive or pertinent negative responses have been documented in the HPI. ROS Other: All systems not noted in ROS Statement are negative. 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 History of Any Multi-Drug Resistant Organisms: None Reported Past Surgical History: Bowel Resection, Hysterectomy, Orthopedic Surgery Past Anesthesia/Blood Transfusion Reactions: No Reported Reaction Past Psychological History: No Psychological Hx Reported Smoking Status: Former smoker Past Alcohol Use History: None Reported Past Drug Use History: None Reported - Past Family History Mother Family Medical History: Cancer Additional Family Medical History / Comment(s): lung CA Father Family Medical History: CVA/TIA, Diabetes Mellitus General Exam - General Exam Comments Initial Comments: Constitutional: NAD, AOX3, Pt has pleasant affect. HEENT: NC/AT, trachea midline, neck supple, no lymphadenopathy. Posterior pharynx non erythematous, without exudates. External ears appear normal, without discharge. Mucous membranes moist. Eyes PERRLA, EOM intact. There is no scleral icterus. No pallor noted. Cardiopulmonary: RRR, no murmurs, rubs or gallops, no JVD noted. Lungs CTAB in anterior and posterior cooper. No peripheral edema. Abdominal exam: Abdomen soft and non-distended. Abdomen non-tender to palpation in all 4 quadrants. Bowel sounds active in LLQ. No hepatosplenomegaly. No ecchymosis Neuro: CN II-XII grossly intact. No nuchal rigidity. No raccon eyes, no stark sign, no hemotympanum. No cervical spinal tenderness. MSK: No posterior calf tenderness bilaterally, homans sign negative bilaterally. Posterior tibialis and radial pulse +2 bilaterally. Sensation intact in upper and lower extremities. Full active ROM in upper and lower extremities, 5/5 stregnth. Limitations: altered mental status Course Vital Signs 04/22/19 19:06 Temperature 98.4 F Pulse Rate 74 Respiratory 16 Rate Blood Pressure 128/85 O2 Sat by Pulse 93 L Oximetry Medical Decision Making - Medical Decision Making 88-year-old female patient past history significant for dementia presents to ED for evaluation of possible dehydration. History is performed by daughter who is primary caregiver. She states that patient recently started on Risperdal for mood. Reports that this was 3 days ago. Reports the patient has had some loose stools and a mild cough since. Patient evaluated for dehydration. Does for the patient did have one stool that was dark in nature over his return to his normal color. Denies any gross blood. Denies any fevers. Denies any other complaints. Patient personally does not report any complaints. Patient vital signs stable, afebrile. Physical exam grossly acute pathology. Patient is anticoagulated on xaralto. Daughter is patient's medical decision maker and declines fecal call blood as well as influenza testing. Laboratory investigations are significant for mild urinary tract infection. Patient initiated 500 mL normal saline bolus, daughter reported the patient had significant improvement after fluid administration. Patient initiated on Keflex administered one dose of Rocephin emergency department. We discharge O follow up with primary care provider will return to ER if condition worsens. Case d iscussed with Dr. Cruz. - Lab Data Result diagrams: 04/22/19 19:37 04/22/19 19:37 Lab Results 04/22/19 04/22/19 04/22/19 Range/Units 19:37 19:37 20:26 WBC 7.9 (3.8-10.6) k/uL RBC 4.39 (3.80-5.40) m/uL Hgb 13.2 (11.4-16.0) gm/dL Hct 41.1 (34.0-46.0) % MCV 93.8 (80.0-100.0) fL MCH 30.1 (25.0-35.0) pg MCHC 32.1 (31.0-37.0) g/dL RDW 13.7 (11.5-15.5) % Plt Count 174 (150-450) k/uL Neutrophils % 53 % Lymphocytes % 32 % Monocytes % 6 % Eosinophils % 6 % Basophils % 0 % Neutrophils # 4.2 (1.3-7.7) k/uL Lymphocytes # 2.5 (1.0-4.8) k/uL Monocytes # 0.5 (0-1.0) k/uL Eosinophils # 0.4 (0-0.7) k/uL Basophils # 0.0 (0-0.2) k/uL Sodium 137 (137-145) mmol/L Potassium 4.3 (3.5-5.1) mmol/L Chloride 104 (98-107) mmol/L Carbon Dioxide 27 (22-30) mmol/L Anion Gap 6 mmol/L BUN 26 H (7-17) mg/dL Creatinine 0.83 (0.52-1.04) mg/dL Est GFR (CKD-EPI)AfAm 74 (>60 ml/min/1.73 sqM) Est GFR (CKD-EPI)NonAf 64 (>60 ml/min/1.73 sqM) Glucose 74 (74-99) mg/dL Calcium 10.3 H (8.4-10.2) mg/dL Total Bilirubin 1.1 (0.2-1.3) mg/dL AST 22 (14-36) U/L ALT 16 (4-34) U/L Alkaline Phosphatase 97 (38-126) U/L Total Protein 6.5 (6.3-8.2) g/dL Albumin 4.0 (3.5-5.0) g/dL Urine Color Light Yellow Urine Appearance Cloudy H (Clear) Urine pH 6.0 (5.0-8.0) Ur Specific [place] 1.012 (1.001-1.035) Urine Protein Negative (Negative) Urine Glucose (UA) Negative (Negative) Urine Ketones Negative (Negative) Urine Blood Negative (Negative) Urine Nitrite Negative (Negative) Urine Bilirubin Negative (Negative) Urine Urobilinogen <2.0 (<2.0) mg/dL Ur Leukocyte Esterase Large H (Negative) Urine RBC 2 (0-5) /hpf Urine WBC 26 H (0-5) /hpf Ur Squamous Epith Cells 1 (0-4) /hpf Calcium Oxalate Crystal Rare H (None) /hpf Urine Bacteria Rare H (None) /hpf Disposition Clinical Impression: Dehydration, UTI (urinary tract infection) Disposition: HOME SELF-CARE Condition: Stable Instructions (If sedation given, give patient instructions): Dehydration (ED), Urinary Tract Infection in Women (ED) Additional Instructions: Follow-up with primary care provider tomorrow. Return to ER if condition worsens in anyway. Take antibiotics as directed. Is patient prescribed a controlled substance at d/c from ED?: No Referrals: Jd Hirsch MD [Primary Care Provider] - 1-2 days
[2019-04-22 19:55] LABS: Basophils % (A) 0 %; Eosinophils # (A) 0.4 k/uL (0-0.7); Eosinophils % (A) 6 %; HCT 41.1 % (34.0-46.0); HGB 13.2 gm/dL (11.4-16.0); Lymphocytes # (A) 2.5 k/uL (1.0-4.8); Lymphocytes % (A) 32 %; MCH 30.1 pg (25.0-35.0); MCHC 32.1 g/dL (31.0-37.0); MCV 93.8 fL (80.0-100.0); Mean Platelet Volume 9.4; Monocytes # (A) 0.5 k/uL (0-1.0); Monocytes % (A) 6 %; Neutrophils # (A) 4.2 k/uL (1.3-7.7); Neutrophils % (A) 53 %; Platelet Count 174 k/uL (150-450); RBC 4.39 m/uL (3.80-5.40); RDW 13.7 % (11.5-15.5); WBC 7.9 k/uL (3.8-10.6)
[2019-04-22 20:06] LABS: Calcium 10.3 mg/dL (8.4-10.2); Potassium 4.3 mmol/L (3.5-5.1); Total Bilirubin 1.1 mg/dL (0.2-1.3); Total Protein 6.5 g/dL (6.3-8.2)
--- NOTE | 2019-04-22 20:07 | XR ---
EXAMINATION TYPE: XR chest 2V DATE OF EXAM: 04/22/2019 COMPARISON: Chest x-ray November 21, 2018 HISTORY: Cough and diarrhea. History of cancer. TECHNIQUE: Frontal and lateral views of the chest are obtained. FINDINGS: There is chronic parenchymal change without suspicious new focal air space opacity, pleural effusion, or pneumothorax seen bilaterally. The cardiac silhouette size remains enlarged. The oss eous structures are intact. IMPRESSION: Chronic changes and cardiomegaly without acute pulmonary process.
--- NOTE | 2019-04-22 20:09 | XR ---
EXAMINATION TYPE: XR KUB DATE OF EXAM: 04/22/2019 7:59 PM CLINICAL HISTORY: History of cancer with diarrhea. TECHNIQUE: Two supine KUB images of the abdomen are obtained. COMPARISON: None. FINDINGS: Some paucity of small bowel gas. Scattered gas seen in nondistended small bowel loops. Fami ly gas is seen in slightly prominent scattered colonic loops throughout the periphery including rectu m. Calcification projects over the liver. Osseous structures are demineralized. Left basilar scarring and/or atelectasis is present. IMPRESSION: Overall nonspecific but favor nonobstructive bowel gas pattern.
[2019-04-22 21:11] LABS: Appearance,Urine Cloudy (Clear); Bacteria,Urine Rare /hpf; Bilirubin,Urine Negative (Negative); Blood,Urine Negative (Negative); Calcium Oxalate Crystals,Urine Rare /hpf; Color,Urine Light Yellow; Glucose,Urine (UA) Negative (Negative); Ketones,Urine Negative (Negative); Leukocyte Esterase,Urine Large (Negative); Nitrite,Urine Negative (Negative); Protein,Urine Negative (Negative); RBC,Urine 2 /hpf (0-5); Specific Gravity,Urine 1.012 (1.001-1.035); Squamous Epithelial Cell,Urine 1 /hpf (0-4); Urobilinogen,Urine <2.0 mg/dL (<2.0); WBC,Urine 26 /hpf (0-5)
[2019-04-22] MEDS ORDERED: cefTRIAXone IN SWFI 1,000 MG/10 ML SYRINGE IVP STA (21:35)
[2019-04-22 21:49] VITALS: BP 136/75; PULSE 70; RESP 18
== END 2019-04-22 21:54 | disposition home or self-care (01) ==
LOC: EC 18:46
DX: N39.0 Urinary tract infection, site not specified (principal); E86.0 Dehydration; F03.90 Unspecified dementia, unspecified severity, without behavioral disturbance, psychotic disturbance, mood disturbance, and anxiety; R05 Cough; R19.7 Diarrhea, unspecified; E78.5 Hyperlipidemia, unspecified; I10 Essential (primary) hypertension; I48.91 Unspecified atrial fibrillation; M19.90 Unspecified osteoarthritis, unspecified site; Z79.01 Long term (current) use of anticoagulants; Z79.899 Other long term (current) drug therapy; Z88.0 Allergy status to penicillin; Z88.2 Allergy status to sulfonamides; Z85.71 Personal history of Hodgkin lymphoma; Z90.49 Acquired absence of other specified parts of digestive tract; Z87.891 Personal history of nicotine dependence
CPT/HCPCS: 36415; 80053; 85025; 81001; 87086; 71046; 74018; 99284; 96374; J0696

== ENCOUNTER 2019-07-22 15:51 | Emergency (ER) | payer MEDICARE ==
[2019-07-22 16:21] VITALS: BP 173/122; PULSE 90; RESP 20; TEMP 97
[2019-07-22] MEDS ORDERED: LORazepam 2 MG/ML INJ IV STA (16:21)
[2019-07-22 16:24] LABS: Basophils % (A) 0 %; Eosinophils # (A) 0.2 k/uL (0-0.7); Eosinophils % (A) 2 %; HCT 40.6 % (34.0-46.0); HGB 13.3 gm/dL (11.4-16.0); Lymphocytes % (A) 34 %; MCH 32.5 pg (25.0-35.0); MCHC 32.7 g/dL (31.0-37.0); MCV 99.2 fL (80.0-100.0); Macrocytosis Slight; Monocytes # (A) 0.4 k/uL (0-1.0); Monocytes % (A) 5 %; Neutrophils % (A) 57 %; Platelet Count 180 k/uL (150-450); RBC 4.09 m/uL (3.80-5.40); RDW 15.6 % (11.5-15.5); WBC 8.8 k/uL (3.8-10.6)
[2019-07-22] MEDS ORDERED: HALOPERIDOL LACTATE 5 MG/ML 1 ML VIAL IVP STA (16:27)
--- NOTE | 2019-07-22 16:30 | ED ---
Fall HPI - General Chief Complaint: Fall Stated Complaint: Fall, head injury Time Seen by Provider: 07/22/19 16:20 Source: EMS Mode of arrival: EMS - History of Present Illness Initial Comments: The patient is an 81-year-old female past medical history of atrial fibrillation on xarelto, dementia and hypertension who presents to the emergency department after she sustained a fall. Daughter and EMS provide history. They state the patient was going up the stairs and was 4 steps up when she fell backwards and hit her head. She did have a loss of consciousness for approximately one and a half minutes. She sustained a large hematoma. Upon EMS arrival she was combative. Family states that she does have a history of aggression due to her dementia however she is more aggressive than normal. The patient is reporting a headache without visual changes. She denies any neck or back pain. No chest pain or shortness of breath. Patient is extremely uncooperative and difficult to obtain history from. She is moving all 4 extremities. - Related Data Home Medications Medication Instructions Recorded Confirmed Atorvastatin [Lipitor] 10 mg PO DAILY 11/21/18 01/02/19 Calcium Carbonate/Vitamin D3 1 tab PO HS 11/21/18 01/02/19 [Calcium 600-Vit D3 400 Tablet] Cetirizine HCl [Zyrtec] 10 mg PO DAILY 11/21/18 01/02/19 Cyanocobalamin (Vitamin B-12) 1,000 mcg PO HS 11/21/18 01/02/19 [Vitamin B-12] Diltiazem HCl [Cartia Xt] 120 mg PO DAILY 11/21/18 01/02/19 Donepezil HCl [Aricept] 10 mg PO HS 11/21/18 01/02/19 Melatonin 5 mg PO HS PRN 11/21/18 01/02/19 Memantine [Namenda] 10 mg PO BID 11/21/18 01/02/19 Rivaroxaban [Xarelto] 20 mg PO HS 11/21/18 01/02/19 Citalopram Hydrobromide [CeleXA] 10 mg PO DAILY 01/02/19 01/02/19 Metoprolol Tartrate 25 mg PO BID 01/02/19 01/02/19 busPIRone HCL 5 mg PO TID PRN 01/02/19 01/02/19 Previous Rx's Medication Instructions Recorded Nitrofurantoin Monohyd/M-Cryst 100 mg PO Q12HR #10 cap 01/02/19 [Macrobid] Cephalexin [Keflex] 500 mg PO Q12HR 10 Days #20 cap 04/22/19 Allergies Allergy/AdvReac Type Severity Reaction Status Date / Time Penicillins Allergy Rash/Hives Verified 04/22/19 19:09 Sulfa (Sulfonamide Allergy Rash/Hives Verified 04/22/19 19:09 Antibiotics) Review of Systems ROS Statement: Those systems with pertinent positive or pertinent negative responses have been documented in the HPI. ROS Other: All systems not noted in ROS Statement are negative. 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 History of Any Multi-Drug Resistant Organisms: None Reported Past Surgical History: Bowel Resection, Hysterectomy, Orthopedic Surgery Past Anesthesia/Blood Transfusion Reactions: No Reported Reaction Past Psychological History: No Psychological Hx Reported Smoking Status: Former smoker Past Alcohol Use History: None Reported Past Drug Use History: None Reported - Past Family History Mother Family Medical History: Cancer Additional Family Medical History / Comment(s): lung CA Father Family Medical History: CVA/TIA, Diabetes Mellitus General Exam Limitations: altered mental status General appearance: alert, other (agitated) Head exam: Present: normocephalic, other (hematoma right occiput. Associated abrasion. Not actively bleeding. No palpable step off) Eye exam: Present: normal appearance, PERRL, EOMI. Absent: scleral icterus, conjunctival injection, periorbital swelling Neck exam: Present: normal inspection, other (c-collar in place). Absent: tenderness, meningismus, lymphadenopathy Respiratory exam: Present: normal lung sounds bilaterally. Absent: respiratory distress, wheezes, rales, rhonchi, stridor Cardiovascular Exam: Present: regular rate, normal rhythm, normal heart sounds. Absent: systolic murmur, diastolic murmur, rubs, gallop, clicks GI/Abdominal exam: Present: soft, normal bowel sounds. Absent: distended, tenderness, guarding, rebound, rigid Extremities exam: Present: normal inspection, full ROM, normal capillary refill. Absent: tenderness, pedal edema, joint swelling, calf tenderness Course Vital Signs 07/22/19 16:19 Temperature 97 F L Pulse Rate 90 Respiratory 20 Rate Blood Pressure 173/122 O2 Sat by Pulse 97 Oximetry Medical Decision Making - Medical Decision Making Upon arrival the patient was placed into room 5. She is extremely agitated. She was given 2 mg of Ativan IV because she is punching staff. Laboratory studies were drawn as the patient is a trauma activation. She is also sent for a CT of her brain and cervical spine. Chest and pelvic x-ray performed. Laboratory studies remarkable for a lactic acid 2.2. Head CT and cervical spine CT demonstrate multilevel cervical spondylitic changes with no fracture. Chronic small vessel ischemia. Large left occipital scalp hematoma. Chest x- ray demonstrates mild pulmonary fibrosis. No acute lung disease. Pelvic x-ray demonstrates no acute fractures. Patient is able to get up and ambulate. Scalp hematoma evaluated and demonstrates no lacerations. This time patient will be discharged home in the care of her daughter. She is to follow-up care physician in 2 to 4 days. Return to emergency for further new worsening symptoms. Patient and daughter were in agreement with the treatment plan and she was discharged in stable condition - Lab Data Result diagrams: 07/22/19 16:10 07/22/19 16:10 Lab Results 07/22/19 07/22/19 07/22/19 Range/Units 16:10 16:10 16:10 WBC 8.8 (3.8-10.6) k/uL RBC 4.09 (3.80-5.40) m/uL Hgb 13.3 (11.4-16.0) gm/dL Hct 40.6 (34.0-46.0) % MCV 99.2 (80.0-100.0) fL MCH 32.5 (25.0-35.0) pg MCHC 32.7 (31.0-37.0) g/dL RDW 15.6 H (11.5-15.5) % Plt Count 180 (150-450) k/uL Neutrophils % 57 % Lymphocytes % 34 % Monocytes % 5 % Eosinophils % 2 % Basophils % 0 % Neutrophils # 5.0 (1.3-7.7) k/uL Lymphocytes # 3.0 (1.0-4.8) k/uL Monocytes # 0.4 (0-1.0) k/uL Eosinophils # 0.2 (0-0.7) k/uL Basophils # 0.0 (0-0.2) k/uL Macrocytosis Slight PT (9.0-12.0) sec INR (<1.2) APTT (22.0-30.0) sec Sodium 137 (137-145) mmol/L Potassium 3.6 (3.5-5.1) mmol/L Chloride 102 (98-107) mmol/L Carbon Dioxide 24 (22-30) mmol/L Anion Gap 11 mmol/L BUN 19 H (7-17) mg/dL Creatinine 0.63 (0.52-1.04) mg/dL Est GFR (CKD-EPI)AfAm >90 (>60 ml/min/1.73 sqM) Est GFR (CKD-EPI)NonAf 80 (>60 ml/min/1.73 sqM) Glucose 116 H (74-99) mg/dL Lactic Ac Sepsis Rflx Plasma Lactic Acid Ben (0.7-2.0) mmol/L Calcium 10.1 (8.4-10.2) mg/dL Total Bilirubin 1.3 (0.2-1.3) mg/dL AST 29 (14-36) U/L ALT 19 (4-34) U/L Alkaline Phosphatase 91 (38-126) U/L Total Creatine Kinase 112 (30-135) U/L CK-MB (CK-2) 2.6 H (0.0-2.4) ng/mL CK-MB (CK-2) Rel Index 2.3 Troponin I <0.012 (0.000-0.034) ng/mL Total Protein 6.9 (6.3-8.2) g/dL Albumin 4.3 (3.5-5.0) g/dL Amylase 49 (30-110) U/L Lipase 86 (23-300) U/L Serum Alcohol <10 mg/dL Blood Type Blood Type Recheck Bld Type Recheck Status Antibody Screen Spec Expiration Date 07/22/19 07/22/19 07/22/19 Range/Units 16:10 16:10 16:10 WBC (3.8-10.6) k/uL RBC (3.80-5.40) m/uL Hgb (11.4-16.0) gm/dL Hct (34.0-46.0) % MCV (80.0-100.0) fL MCH (25.0-35.0) pg MCHC (31.0-37.0) g/dL RDW (11.5-15.5) % Plt Count (150-450) k/uL Neutrophils % % Lymphocytes % % Monocytes % % Eosinophils % % Basophils % % Neutrophils # (1.3-7.7) k/uL Lymphocytes # (1.0-4.8) k/uL Monocytes # (0-1.0) k/uL Eosinophils # (0-0.7) k/uL Basophils # (0-0.2) k/uL Macrocytosis PT 11.3 (9.0-12.0) sec INR 1.1 (<1.2) APTT 23.9 (22.0-30.0) sec Sodium (137-145) mmol/L Potassium (3.5-5.1) mmol/L Chloride (98-107) mmol/L Carbon Dioxide (22-30) mmol/L Anion Gap mmol/L BUN (7-17) mg/dL Creatinine (0.52-1.04) mg/dL Est GFR (CKD-EPI)AfAm (>60 ml/min/1.73 sqM) Est GFR (CKD-EPI)NonAf (>60 ml/min/1.73 sqM) Glucose (74-99) mg/dL Lactic Ac Sepsis Rflx Plasma Lactic Acid Ben 2.2 H* (0.7-2.0) mmol/L Calcium (8.4-10.2) mg/dL Total Bilirubin (0.2-1.3) mg/dL AST (14-36) U/L ALT (4-34) U/L Alkaline Phosphatase (38-126) U/L Total Creatine Kinase (30-135) U/L CK-MB (CK-2) (0.0-2.4) ng/mL CK-MB (CK-2) Rel Index Troponin I (0.000-0.034) ng/mL Total Protein (6.3-8.2) g/dL Albumin (3.5-5.0) g/dL Amylase (30-110) U/L Lipase (23-300) U/L Serum Alcohol mg/dL Blood Type B Positive Blood Type Recheck B Pos Bld Type Recheck Status No Antibody Screen NEGATIVE Spec Expiration Date 07/25/2019230907/22/19 Range/Units 16:37 WBC (3.8-10.6) k/uL RBC (3.80-5.40) m/uL Hgb (11.4-16.0) gm/dL Hct (34.0-46.0) % MCV (80.0-100.0) fL MCH (25.0-35.0) pg MCHC (31.0-37.0) g/dL RDW (11.5-15.5) % Plt Count (150-450) k/uL Neutrophils % % Lymphocytes % % Monocytes % % Eosinophils % % Basophils % % Neutrophils # (1.3-7.7) k/uL Lymphocytes # (1.0-4.8) k/uL Monocytes # (0-1.0) k/uL Eosinophils # (0-0.7) k/uL Basophils # (0-0.2) k/uL Macrocytosis PT (9.0-12.0) sec INR (<1.2) APTT (22.0-30.0) sec Sodium (137-145) mmol/L Potassium (3.5-5.1) mmol/L Chloride (98-107) mmol/L Carbon Dioxide (22-30) mmol/L Anion Gap mmol/L BUN (7-17) mg/dL Creatinine (0.52-1.04) mg/dL Est GFR (CKD-EPI)AfAm (>60 ml/min/1.73 sqM) Est GFR (CKD-EPI)NonAf (>60 ml/min/1.73 sqM) Glucose (74-99) mg/dL Lactic Ac Sepsis Rflx Y Plasma Lactic Acid Ben (0.7-2.0) mmol/L Calcium (8.4-10.2) mg/dL Total Bilirubin (0.2-1.3) mg/dL AST (14-36) U/L ALT (4-34) U/L Alkaline Phosphatase (38-126) U/L Total Creatine Kinase (30-135) U/L CK-MB (CK-2) (0.0-2.4) ng/mL CK-MB (CK-2) Rel Index Troponin I (0.000-0.034) ng/mL Total Protein (6.3-8.2) g/dL Albumin (3.5-5.0) g/dL Amylase (30-110) U/L Lipase (23-300) U/L Serum Alcohol mg/dL Blood Type Blood Type Recheck Bld Type Recheck Status Antibody Screen Spec Expiration Date Disposition Clinical Impression: Fall, Blunt head trauma Disposition: HOME SELF-CARE Condition: Stable Instructions (If sedation given, give patient instructions): Fall Prevention (ED) Additional Instructions: Please follow up with your primary care doctor in 2-4 days. Return to the emergency room for any new or worsening symptoms Is patient prescribed a controlled substance at d/c from ED?: No Referrals: Jd Hirsch MD [Primary Care Provider] - 1-2 days Time of Disposition: 18:26
[2019-07-22 16:33] LABS: INR 1.1 (<1.2); Partial Thromboplastin Time 23.9 sec (22.0-30.0); Prothrombin Time 11.3 sec (9.0-12.0)
[2019-07-22 16:34] LABS: ALT 19 U/L (4-34); AST 29 U/L (14-36); African American GFR (CKD) >90 (>60 ml/min/1.73 sqM); Albumin 4.3 g/dL (3.5-5.0); Alcohol <10 mg/dL; Alkaline Phosphatase 91 U/L (38-126); Amylase 49 U/L (30-110); Anion Gap 11 mmol/L; Blood Urea Nitrogen 19 mg/dL (7-17); Calcium 10.1 mg/dL (8.4-10.2); Carbon Dioxide 24 mmol/L (22-30); Chloride 102 mmol/L (98-107); Glucose 116 mg/dL (74-99); Non-African American GFR(CKD) 80 (>60 ml/min/1.73 sqM); Potassium 3.6 mmol/L (3.5-5.1); Sodium 137 mmol/L (137-145); Total Bilirubin 1.3 mg/dL (0.2-1.3); Total Protein 6.9 g/dL (6.3-8.2)
--- NOTE | 2019-07-22 16:36 | XR ---
EXAMINATION TYPE: XR pelvis AP view DATE OF EXAM: 07/22/2019 COMPARISON: NONE HISTORY: Pain TECHNIQUE: Single view FINDINGS: Pelvic ring is intact. Proximal femurs and hip joints are intact. Sacroiliac joints appear normal. IMPRESSION: Normal pelvis.
--- NOTE | 2019-07-22 16:37 | XR ---
EXAMINATION TYPE: XR chest 1V portable DATE OF EXAM: 07/22/2019 COMPARISON: 04/22/2019 HISTORY: Chest pain. Trauma. TECHNIQUE: FINDINGS: There is no heart failure nor confluent pneumonic infiltrate. Costophrenic angles are clear . There is slight coarsening of interstitial markings. There is no pleural effusion. Bony thorax appe ars intact. IMPRESSION: Mild poorly fibrosis. No acute lung disease. No change.
[2019-07-22 16:42] LABS: Creatine Kinase 112 U/L (30-135)
[2019-07-22 16:56] LABS: Creatine Kinase MB 2.6 ng/mL (0.0-2.4); Troponin I <0.012 ng/mL (0.000-0.034)
--- NOTE | 2019-07-22 17:42 | CT ---
EXAMINATION TYPE: CT brain [facility] DATE OF EXAM: 07/22/2019 COMPARISON: None HISTORY: Fall today with head injury. CT DLP: 1327.9 mGycm Automated exposure control for dose reduction was used. There is diffuse cerebral cortical atrophy. There is hypodensity in the periventricular white matter. There is no mass effect nor midline shift. There is no evidence of intracranial hemorrhage. There is large left side occipital scalp hematoma that measures up to 2 cm in thickness. There is enlargement of the ventricles related to atrophy. The calvarium is intact. The skull base appears intact. Cervical vertebra have normal alignment. There is degenerative disc space narrowing from C4 to C7 wit h spurring of the endplates. There is multilevel hypertrophic cervical facet arthropathy. I see no [place] destructive process. Prevertebral soft tissues appear normal. IMPRESSION: Multilevel cervical spondylotic changes. No fracture seen. Cerebral atrophy and chronic small vessel ischemia. Large left occipital scalp hematoma. No acute int racranial abnormality.
== END 2019-07-22 18:50 | disposition home or self-care (01) ==
LOC: EC 15:51
DX: S06.2X1A Diffuse traumatic brain injury with loss of consciousness of 30 minutes or less, initial encounter (principal); M47.812 Spondylosis without myelopathy or radiculopathy, cervical region; I67.82 Cerebral ischemia; J84.10 Pulmonary fibrosis, unspecified; F03.90 Unspecified dementia, unspecified severity, without behavioral disturbance, psychotic disturbance, mood disturbance, and anxiety; I48.91 Unspecified atrial fibrillation; I10 Essential (primary) hypertension; E78.5 Hyperlipidemia, unspecified; M19.90 Unspecified osteoarthritis, unspecified site; Z79.01 Long term (current) use of anticoagulants; Z79.899 Other long term (current) drug therapy; Z87.891 Personal history of nicotine dependence; Z88.0 Allergy status to penicillin; Z88.2 Allergy status to sulfonamides; Z85.71 Personal history of Hodgkin lymphoma; W10.9XXA Fall (on) (from) unspecified stairs and steps, initial encounter; Y93.01 Activity, walking, marching and hiking
CPT/HCPCS: 99284; 96374; 96375; 36415; 86900; 86901; 80053; 82150; 82550; 82553; 83605; 83690; 84484; 85025; 85610; 85730; 86850; 72170; 71045; 72125; 70450; G0480; J2060; J1630; 80320

== ENCOUNTER 2019-08-05 16:42 | Emergency (ER) | payer MEDICARE ==
[2019-08-05] MEDS ORDERED: DIPH,PERTUS(ACELL)TETVAC-LF 0.5 ML VIAL IM ONE (17:09)
--- NOTE | 2019-08-05 17:27 | ED ---
Head Injury HPI - General Source: family Mode of arrival: wheelchair Limitations: altered mental status <Morgan Pemberton - Last Filed: 08/05/19 19:00> <Neli Falk - Last Filed: 08/13/19 13:25> - General Chief complaint: Head Injury Stated complaint: Fall 2 weeks ago, bump on head bleeding Time Seen by Provider: 08/05/19 16:54 - History of Present Illness Initial comments: Patient is an 81-year-old female with history of severe Alzheimer's presenting to the emergency department with a chief complaint of bleeding from a head injury. Daughter states the patient had a fall approximately 2 weeks ago and was brought to the ED. CT scans of the head and neck were negative. Daughter states she has noticed the patient had some bleeding from the injury site which hasn't occurred since the incident. Daughter also states the patient is acting slightly more aggressive today. Daughter also states patient is having difficulty choosing the right worse over the last few days. Denies one-sided weakness or paresthesias. Denies facial asymmetry or facial droop. Reports the urine is darker than usual as well. Denies any fevers or chills. (Morgan Pemberton) - Related Data Home Medications Medication Instructions Recorded Confirmed Atorvastatin [Lipitor] 10 mg PO DAILY 11/21/18 01/02/19 Calcium Carbonate/Vitamin D3 1 tab PO HS 11/21/18 01/02/19 [Calcium 600-Vit D3 400 Tablet] Cetirizine HCl [Zyrtec] 10 mg PO DAILY 11/21/18 01/02/19 Cyanocobalamin (Vitamin B-12) 1,000 mcg PO HS 11/21/18 01/02/19 [Vitamin B-12] Diltiazem HCl [Cartia Xt] 120 mg PO DAILY 11/21/18 01/02/19 Donepezil HCl [Aricept] 10 mg PO HS 11/21/18 01/02/19 Melatonin 5 mg PO HS PRN 11/21/18 01/02/19 Memantine [Namenda] 10 mg PO BID 11/21/18 01/02/19 Rivaroxaban [Xarelto] 20 mg PO HS 11/21/18 01/02/19 Citalopram Hydrobromide [CeleXA] 10 mg PO DAILY 01/02/19 01/02/19 Metoprolol Tartrate 25 mg PO BID 01/02/19 01/02/19 busPIRone HCL 5 mg PO TID PRN 01/02/19 01/02/19 Previous Rx's Medication Instructions Recorded Nitrofurantoin Monohyd/M-Cryst 100 mg PO Q12HR #10 cap 01/02/19 [Macrobid] Cephalexin [Keflex] 500 mg PO Q12HR 10 Days #20 cap 04/22/19 Nitrofurantoin Monohyd/M-Cryst 100 mg PO Q12HR #14 cap 08/05/19 [Macrobid] Allergies/Adverse reactions: Allergies Allergy/AdvReac Type Severity Reaction Status Date / Time Penicillins Allergy Rash/Hives Verified 08/05/19 16:53 Sulfa (Sulfonamide Allergy Rash/Hives Verified 08/05/19 16:53 Antibiotics) Review of Systems ROS Other: All systems not noted in ROS Statement are negative. <Morgan Pemberton - Last Filed: 08/05/19 19:00> ROS Other: All systems not noted in ROS Statement are negative. <Neli Falk - Last Filed: 08/13/19 13:25> ROS Statement: Those systems with pertinent positive or pertinent negative responses have been documented in the HPI. 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 History of Any Multi-Drug Resistant Organisms: None Reported Past Surgical History: Bowel Resection, Hysterectomy, Orthopedic Surgery Past Anesthesia/Blood Transfusion Reactions: No Reported Reaction Past Psychological History: No Psychological Hx Reported Smoking Status: Former smoker Past Alcohol Use History: None Reported Past Drug Use History: None Reported - Past Family History Mother Family Medical History: Cancer Additional Family Medical History / Comment(s): lung CA Father Family Medical History: CVA/TIA, Diabetes Mellitus <Morgan Pemberton - Last Filed: 08/05/19 19:00> General Exam Limitations: altered mental status General appearance: alert, in no apparent distress Head exam: Present: normocephalic. Absent: atraumatic (Moderate-sized hematoma noted on the occipital region. No active bleeding at this time.), normal inspe ction, other (Negative Barriga sign, negative raccoon's eyes, negative hemotympanum.) Eye exam: Present: normal appearance, PERRL, EOMI Pupils: Present: normal accommodation ENT exam: Present: normal exam, normal oropharynx, mucous membranes moist Neck exam: Present: normal inspection, full ROM Respiratory exam: Present: normal lung sounds bilaterally. Absent: respiratory distress, wheezes, rales Cardiovascular Exam: Present: regular rate, normal rhythm, normal heart sounds Extremities exam: Present: normal inspection, full ROM Back exam: Present: normal inspection, full ROM Neurological exam: Present: alert Psychiatric exam: Present: normal affect, normal mood Skin exam: Present: warm, dry, intact, normal color <Morgan Pemberton - Last Filed: 08/05/19 19:00> Course Vital Signs 08/05/19 08/05/19 16:48 19:04 Temperature 97.9 F 98.0 F Pulse Rate 74 105 H Respiratory 20 18 Rate Blood Pressure 126/72 139/80 O2 Sat by Pulse 97 96 Oximetry Medical Decision Making - Lab Data Result diagrams: 08/05/19 17:35 08/05/19 17:35 <Morgan Pemberton - Last Filed: 08/05/19 19:00> - Lab Data Result diagrams: 08/05/19 17:35 08/05/19 17:35 <Neli Falk - Last Filed: 08/13/19 13:25> - Medical Decision Making Patient is an 89-year-old female with history of severe Alzheimer's presented to the emergency department with a chief complaint of a bleed from a head injury. On exam patient has a hematoma on the occipital region with no active bleeding at this time. The bleeding occurred secondary to patient poking at the injured site. UA reveals a urinary tract infection with no nitrates. CT of the brain reveals a hematoma at the injury site but no other signs of acute fractures, dislocations or intracranial bleeds. Patient was given tetanus prophylaxis. Patient was also given 2 mg of IV Ativan due to patient not being cooperative during examination secondary to her Alzheimer's. Patient was given 1 g of Rocephin in the ED. Will be discharged with a 10 day course of Macrobid. Strict return parameters were thoroughly discussed with the daughter who is understanding and agreeable. Case discussed with physician. (Morgan Pemberton) I was available for consultation in the emergency department. The history and physical exam were done by the midlevel provider. I was consulted for this [facility] care. I reviewed the case with the midlevel provider and based on their presentation of the patient, I agree with the assessment, medical decision making and plan of care as documented. Chart was dictated using [employer] dictation software. Attempts were made to correct any dictation errors however some typographical errors may persist. Patient was seen during a national state of emergency due to the Covid-19 pandemic. (Neli Falk) - Lab Data Lab Results 08/05/19 08/05/19 08/05/19 Range/Units 17:32 17:35 17:35 WBC 12.6 H (3.8-10.6) k/uL RBC 3.77 L (3.80-5.40) m/uL Hgb 12.1 (11.4-16.0) gm/dL Hct 37.1 (34.0-46.0) % MCV 98.5 (80.0-100.0) fL MCH 32.2 (25.0-35.0) pg MCHC 32.7 (31.0-37.0) g/dL RDW 15.2 (11.5-15.5) % Plt Count 327 (150-450) k/uL Neutrophils % 63 % Lymphocytes % 28 % Monocytes % 4 % Eosinophils % 2 % Basophils % 0 % Neutrophils # 7.9 H (1.3-7.7) k/uL Lymphocytes # 3.6 (1.0-4.8) k/uL Monocytes # 0.6 (0-1.0) k/uL Eosinophils # 0.3 (0-0.7) k/uL Basophils # 0.0 (0-0.2) k/uL Hypochromasia Slight Sodium 140 (137-145) mmol/L Potassium 4.0 (3.5-5.1) mmol/L Chloride 105 (98-107) mmol/L Carbon Dioxide 23 (22-30) mmol/L Anion Gap 12 mmol/L BUN 17 (7-17) mg/dL Creatinine 0.67 (0.52-1.04) mg/dL Est GFR (CKD-EPI)AfAm >90 (>60 ml/min/1.73 sqM) Est GFR (CKD-EPI)NonAf 79 (>60 ml/min/1.73 sqM) Glucose 112 H (74-99) mg/dL Calcium 10.1 (8.4-10.2) mg/dL Total Bilirubin 1.0 (0.2-1.3) mg/dL AST 35 (14-36) U/L ALT 25 (4-34) U/L Alkaline Phosphatase 174 H (38-126) U/L Total Protein 6.9 (6.3-8.2) g/dL Albumin 4.0 (3.5-5.0) g/dL Urine Color Yellow Urine Appearance Turbid H (Clear) Urine pH 5.5 (5.0-8.0) Ur Specific [place] 1.027 (1.001-1.035) Urine Protein 1+ H (Negative) Urine Glucose (UA) Negative (Negative) Urine Ketones 1+ H (Negative) Urine Blood Moderate H (Negative) Urine Nitrite Negative (Negative) Urine Bilirubin Negative (Negative) Urine Urobilinogen 3.0 (<2.0) mg/dL Ur Leukocyte Esterase Large H (Negative) Urine RBC 45 H (0-5) /hpf Urine WBC >182 H (0-5) /hpf Urine WBC Clumps Rare H (None) /hpf Ur Squamous Epith Cells 30 H (0-4) /hpf Urine Mucus Moderate H (None) /hpf Disposition Is patient prescribed a controlled substance at d/c from ED?: No Time of Disposition: 18:53 <Morgan Pemberton - Last Filed: 08/05/19 19:00> <Neli Falk - Last Filed: 08/13/19 13:25> Clinical Impression: Contusion of scalp, Hematoma of scalp, Urinary tract infection Disposition: HOME SELF-CARE Instructions (If sedation given, give patient instructions): Urinary Tract Infection in Women (ED) Additional Instructions: Take prescribed medication as directed. Follow with the primary care. Return to emergency department if symptoms worsen. Prescriptions: Nitrofurantoin Monohyd/M-Cryst [Macrobid] 100 mg PO Q12HR #14 cap Referrals: Jd Hirsch MD [Primary Care Provider] - 1-2 days
[2019-08-05] MEDS ORDERED: LORazepam 2 MG/ML INJ IV STA (17:34)
[2019-08-05 17:46] LABS: Appearance,Urine Turbid (Clear); Bilirubin,Urine Negative (Negative); Blood,Urine Moderate (Negative); Color,Urine Yellow; Glucose,Urine (UA) Negative (Negative); Ketones,Urine 1+ (Negative); Leukocyte Esterase,Urine Large (Negative); Mucus,Urine Moderate /hpf; Nitrite,Urine Negative (Negative); PH, Urine 5.5 (5.0-8.0); Protein,Urine 1+ (Negative); RBC,Urine 45 /hpf (0-5); Specific Gravity,Urine 1.027 (1.001-1.035); Squamous Epithelial Cell,Urine 30 /hpf (0-4); WBC,Urine >182 /hpf (0-5)
[2019-08-05 18:08] LABS: Basophils % (A) 0 %; Eosinophils # (A) 0.3 k/uL (0-0.7); Eosinophils % (A) 2 %; HCT 37.1 % (34.0-46.0); HGB 12.1 gm/dL (11.4-16.0); Hypochromasia Slight; Lymphocytes # (A) 3.6 k/uL (1.0-4.8); Lymphocytes % (A) 28 %; MCH 32.2 pg (25.0-35.0); MCHC 32.7 g/dL (31.0-37.0); MCV 98.5 fL (80.0-100.0); Monocytes # (A) 0.6 k/uL (0-1.0); Monocytes % (A) 4 %; Neutrophils # (A) 7.9 k/uL (1.3-7.7); Neutrophils % (A) 63 %; Platelet Count 327 k/uL (150-450); RBC 3.77 m/uL (3.80-5.40); RDW 15.2 % (11.5-15.5); WBC 12.6 k/uL (3.8-10.6)
[2019-08-05 18:14] LABS: ALT 25 U/L (4-34); AST 35 U/L (14-36); African American GFR (CKD) >90 (>60 ml/min/1.73 sqM); Alkaline Phosphatase 174 U/L (38-126); Anion Gap 12 mmol/L; Blood Urea Nitrogen 17 mg/dL (7-17); Calcium 10.1 mg/dL (8.4-10.2); Carbon Dioxide 23 mmol/L (22-30); Chloride 105 mmol/L (98-107); Glucose 112 mg/dL (74-99); Non-African American GFR(CKD) 79 (>60 ml/min/1.73 sqM); Sodium 140 mmol/L (137-145); Total Protein 6.9 g/dL (6.3-8.2)
--- NOTE | 2019-08-05 18:31 | CT ---
EXAMINATION TYPE: CT brain wo con DATE OF EXAM: 08/05/2019 COMPARISON: Fall. Injury. HISTORY: FALL WITH POSTERIOR HEAD INJURY CT DLP: 1099.4 mGycm Automated exposure control for dose reduction was used. There is diffuse cerebral cortical atrophy. There is no mass effect nor midline shift. There is no ev idence of intracranial hemorrhage. The calvarium is intact. There is left posterior parietal scalp he matoma that measures up to 1.5 cm. IMPRESSION: Cerebral atrophy. No acute intracranial abnormality. Large left occipital parietal scalp hematoma in similar location as previous exam.
[2019-08-05] MEDS ORDERED: cefTRIAXone IN SWFI 1,000 MG/10 ML SYRINGE IVP STA (18:52)
[2019-08-05 19:05] VITALS: BP 139/80; PULSE 105; RESP 18; TEMP 98
== END 2019-08-05 19:12 | disposition home or self-care (01) ==
LOC: EC 16:42
DX: S00.03XA Contusion of scalp, initial encounter (principal); N39.0 Urinary tract infection, site not specified; G30.9 Alzheimer's disease, unspecified; F02.80 Dementia in other diseases classified elsewhere, unspecified severity, without behavioral disturbance, psychotic disturbance, mood disturbance, and anxiety; R41.82 Altered mental status, unspecified; I48.91 Unspecified atrial fibrillation; E78.5 Hyperlipidemia, unspecified; I10 Essential (primary) hypertension; M19.90 Unspecified osteoarthritis, unspecified site; Z79.01 Long term (current) use of anticoagulants; Z79.899 Other long term (current) drug therapy; Z87.891 Personal history of nicotine dependence; Z88.0 Allergy status to penicillin; Z88.2 Allergy status to sulfonamides; Z23 Encounter for immunization; Z85.72 Personal history of non-Hodgkin lymphomas; X58.XXXA Exposure to other specified factors, initial encounter
CPT/HCPCS: 36415; 80053; 85025; 81001; 87086; 70450; 90715; 99284; 96374; 96375; 90471; J2060; J0696

== ENCOUNTER 2019-11-30 12:57 | Inpatient (IN) | payer MEDICARE ==
[2019-11-30] MEDS ORDERED: SODIUM CHLORIDE 0.9% 500 ML 500 ML IV STA (13:23)
[2019-11-30] MEDS ORDERED: DILTIAZEM DRIP BOLUS FROM BAG 1 MG SOLN IV ONE (13:26)
[2019-11-30] MEDS ORDERED: DILTIAZEM 125 MG in SODIUM CHLORIDE 0.9% 100 ML IV SCH (13:30)
--- NOTE | 2019-11-30 13:32 | ED ---
General Adult HPI - General Chief complaint: Arrhythmia/Palpitations Stated complaint: Sent by PCP - High Heart Rate/Swelling Time Seen by Provider: 11/30/19 13:16 Source: family Mode of arrival: wheelchair Limitations: altered mental status - History of Present Illness Initial comments: Dictation was produced using My 1% dictation software. please excuse any grammatical, word or spelling errors. This patient was cared for during a federal and state declared state of emergency secondary to Covid 19 Chief Complaint: 89-year-old female presents with daughter for high heart rate and ankle swelling. History of Present Illness: Patient is an 89-year-old female she has past medical history of A. fib, dementia and hypertension. She over the last couple days has developed high heart rate and bilateral ankle swelling. She has past medical history of Alzheimer's and unable to provide HPI at this time. Daughter is one providing history of present illness. They have a visiting nurse that was requested to come to the house to evaluate patient and she recommended to them to come to the emergency department. Patient otherwise has been in her usual state of health she's been eating well. She hasn't been coughing or having any constitutional symptoms. Daughter reports that patient is combative whenever she has come to the hospital. The ROS documented in this emergency department record has been reviewed and confirmed by me. Those systems with pertinent positive or negative responses have been documented in the HPI. All other systems are other negative and/or noncontributory. PHYSICAL EXAM: General Impression: not in acute distress, combative, uncooperative HEENT: Normocephalic atraumatic, extra-ocular movements intact, pupils equal and reactive to light bilaterally, mucous membranes moist. Cardiovascular: Heart regular rate and rhythm Chest: Able to complete full sentences, no retractions, no tachypnea Abdomen: abdomen soft, non-tender, non-distended, no organomegaly Musculoskeletal: Pulses present and equal in all extremities, no peripheral edema Motor: no focal deficits noted Neurological: CN II-XII grossly intact, no focal motor or sensory deficits noted Skin: Intact with no visualized rashes Psych: Normal affect and mood ED course: 89-year-old female presents today with tachycardia and bilateral ankle swelling. All signs upon arrival shows heart rate of 144, rest of vital signs within acceptable limits. EKG shows A. fib with rapid ventricular rate. Patient does take anticoagulation medications. Laboratory evaluation obtained. CBC is unremarkable. Coag panel is negative. Metabolic panel shows sodium of 146, potassium of 3.4. BUN 29 with a creatinine of 0.75. Brain natruretic peptide 3000. Negative troponin. Chest x-ray that show CHF however there is a new underlying basilar acute infiltrate. More history was obtained from daughter. She did report that she did have some wheezing at home and nonproductive cough. There is concern of any cord pneumonia. Patient given dose of azithromycin IV. Patient reevaluated after some time on Cardizem with improvement of her heart rate. She is stable appearing. Patient be admitted with cardiology consultation. Pending discu ssion with Dr. Hirsch. EKG interpretation: Ventricular rate 121, A. fib with RVR, QRS 84, QTC 531. - Related Data Home Medications Medication Instructions Recorded Confirmed Atorvastatin [Lipitor] 10 mg PO DAILY 11/21/18 11/30/19 Cetirizine HCl [Zyrtec] 10 mg PO DAILY 11/21/18 11/30/19 Donepezil HCl [Aricept] 10 mg PO HS 11/21/18 11/30/19 Melatonin 5 mg PO HS PRN 11/21/18 11/30/19 Memantine [Namenda] 10 mg PO BID 11/21/18 11/30/19 Rivaroxaban [Xarelto] 20 mg PO HS 11/21/18 11/30/19 Acetaminophen [Tylenol Arthritis] 650 mg PO BID PRN 11/30/19 11/30/19 Diazepam [Valium] 2.5 mg PO HS 11/30/19 11/30/19 Sertraline [Zoloft] 50 mg PO DAILY 11/30/19 11/30/19 Allergies Allergy/AdvReac Type Severity Reaction Status Date / Time Penicillins Allergy Rash/Hives Verified 11/30/19 14:56 Sulfa (Sulfonamide Allergy Rash/Hives Verified 11/30/19 14:56 Antibiotics) Review of Systems ROS Statement: Those systems with pertinent positive or pertinent negative responses have been documented in the HPI. ROS Other: All systems not noted in ROS Statement are negative. 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 History of Any Multi-Drug Resistant Organisms: None Reported Past Surgical History: Bowel Resection, Hysterectomy, Orthopedic Surgery Past Anesthesia/Blood Transfusion Reactions: No Reported Reaction Past Psychological History: No Psychological Hx Reported Smoking Status: Former smoker Past Alcohol Use History: None Reported Past Drug Use History: None Reported - Past Family History Mother Family Medical History: Cancer Additional Family Medical History / Comment(s): lung CA Father Family Medical History: CVA/TIA, Diabetes Mellitus General Exam Limitations: altered mental status Course Vital Signs 11/30/19 11/30/19 13:03 14:44 Pulse Rate 144 H 105 H Respiratory 18 18 Rate Blood Pressure 133/81 129/98 O2 Sat by Pulse 97 97 Oximetry Medical Decision Making - Lab Data Result diagrams: 11/30/19 13:59 11/30/19 13:59 Lab Results 11/30/19 11/30/19 11/30/19 Range/Units 13:59 13:59 13:59 WBC 8.7 (3.8-10.6) k/uL RBC 3.80 (3.80-5.40) m/uL Hgb 12.5 (11.4-16.0) gm/dL Hct 38.9 (34.0-46.0) % MCV 102.4 H (80.0-100.0) fL MCH 32.8 (25.0-35.0) pg MCHC 32.0 (31.0-37.0) g/dL RDW 14.3 (11.5-15.5) % Plt Count 173 (150-450) k/uL Neutrophils % 69 % Lymphocytes % 22 % Monocytes % 5 % Eosinophils % 3 % Basophils % 1 % Neutrophils # 6.0 (1.3-7.7) k/uL Lymphocytes # 1.9 (1.0-4.8) k/uL Monocytes # 0.4 (0-1.0) k/uL Eosinophils # 0.2 (0-0.7) k/uL Basophils # 0.1 (0-0.2) k/uL Hypochromasia Slight Macrocytosis Slight PT 13.1 H (9.0-12.0) sec INR 1.3 H (<1.2) APTT 29.0 (22.0-30.0) sec Sodium 146 H (137-145) mmol/L Potassium 3.4 L (3.5-5.1) mmol/L Chloride 115 H (98-107) mmol/L Carbon Dioxide 23 (22-30) mmol/L Anion Gap 8 mmol/L BUN 29 H (7-17) mg/dL Creatinine 0.75 (0.52-1.04) mg/dL Est GFR (CKD-EPI)AfAm 82 (>60 ml/min/1.73 sqM) Est GFR (CKD-EPI)NonAf 72 (>60 ml/min/1.73 sqM) Glucose 109 H (74-99) mg/dL Calcium 9.8 (8.4-10.2) mg/dL Magnesium 1.6 (1.6-2.3) mg/dL Total Bilirubin 2.1 H (0.2-1.3) mg/dL AST 22 (14-36) U/L ALT 18 (4-34) U/L Alkaline Phosphatase 85 (38-126) U/L Troponin I (0.000-0.034) ng/mL NT-Pro-B Natriuret Pep pg/mL Total Protein 5.8 L (6.3-8.2) g/dL Albumin 3.6 (3.5-5.0) g/dL TSH 2.640 (0.465-4.680) mIU/L 11/30/19 11/30/19 Range/Units 13:59 13:59 WBC (3.8-10.6) k/uL RBC (3.80-5.40) m/uL Hgb (11.4-16.0) gm/dL Hct (34.0-46.0) % MCV (80.0-100.0) fL MCH (25.0-35.0) pg MCHC (31.0-37.0) g/dL RDW (11.5-15.5) % Plt Count (150-450) k/uL Neutrophils % % Lymphocytes % % Monocytes % % Eosinophils % % Basophils % % Neutrophils # (1.3-7.7) k/uL Lymphocytes # (1.0-4.8) k/uL Monocytes # (0-1.0) k/uL Eosinophils # (0-0.7) k/uL Basophils # (0-0.2) k/uL Hypochromasia Macrocytosis PT (9.0-12.0) sec INR (<1.2) APTT (22.0-30.0) sec Sodium (137-145) mmol/L Potassium (3.5-5.1) mmol/L Chloride (98-107) mmol/L Carbon Dioxide (22-30) mmol/L Anion Gap mmol/L BUN (7-17) mg/dL Creatinine (0.52-1.04) mg/dL Est GFR (CKD-EPI)AfAm (>60 ml/min/1.73 sqM) Est GFR (CKD-EPI)NonAf (>60 ml/min/1.73 sqM) Glucose (74-99) mg/dL Calcium (8.4-10.2) mg/dL Magnesium (1.6-2.3) mg/dL Total Bilirubin (0.2-1.3) mg/dL AST (14-36) U/L ALT (4-34) U/L Alkaline Phosphatase (38-126) U/L Troponin I <0.012 (0.000-0.034) ng/mL NT-Pro-B Natriuret Pep 3080 pg/mL Total Protein (6.3-8.2) g/dL Albumin (3.5-5.0) g/dL TSH (0.465-4.680) mIU/L Disposition Clinical Impression: Atrial fibrillation with RVR Disposition: ADMITTED IP TO THIS HOSP Condition: Fair Referrals: Jd Hirsch MD [Primary Care Provider] - 1-2 days Decision Time: 16:23
[2019-11-30] MEDS ORDERED: MIDAZOLAM ORAL SYRUP 10 MG/5 ML CUP PO ONE (13:35)
[2019-11-30] MEDS ORDERED: diazePAM 2 MG TAB PO STA (13:44)
[2019-11-30 14:09] LABS: Basophils # (A) 0.1 k/uL (0-0.2); Basophils % (A) 1 %; Eosinophils # (A) 0.2 k/uL (0-0.7); Eosinophils % (A) 3 %; HCT 38.9 % (34.0-46.0); HGB 12.5 gm/dL (11.4-16.0); Hypochromasia Slight; Lymphocytes # (A) 1.9 k/uL (1.0-4.8); Lymphocytes % (A) 22 %; MCH 32.8 pg (25.0-35.0); MCV 102.4 fL (80.0-100.0); Macrocytosis Slight; Mean Platelet Volume 9.9; Monocytes # (A) 0.4 k/uL (0-1.0); Monocytes % (A) 5 %; Neutrophils % (A) 69 %; Platelet Count 173 k/uL (150-450); RDW 14.3 % (11.5-15.5); WBC 8.7 k/uL (3.8-10.6)
[2019-11-30 14:20] LABS: INR 1.3 (<1.2); Prothrombin Time 13.1 sec (9.0-12.0)
[2019-11-30 14:21] LABS: Albumin 3.6 g/dL (3.5-5.0); Calcium 9.8 mg/dL (8.4-10.2); Magnesium 1.6 mg/dL (1.6-2.3); Potassium 3.4 mmol/L (3.5-5.1); Total Bilirubin 2.1 mg/dL (0.2-1.3); Total Protein 5.8 g/dL (6.3-8.2)
--- NOTE | 2019-11-30 15:24 | XR ---
EXAMINATION TYPE: XR chest 2V DATE OF EXAM: 11/30/2019 COMPARISON: Chest x-ray July 22, 2019. HISTORY: Dysrhythmia. TECHNIQUE: Frontal and lateral views of the chest are obtained. FINDINGS: The osseous structures remain demineralized. Persistent cardiomegaly. New central vascular congestion and interstitial edema background chronic parenchymal change with new small left greater than right pleural effusions. Associated left basilar atelectasis and/or infiltrate. IMPRESSION: Correlate for CHF exacerbation on background chronic parenchymal changes detailed above. New underlying left basilar acute infiltrate and/or atelectasis noted.
[2019-11-30] MEDS ORDERED: AZITHROMYCIN 500 MG in SODIUM CHLORIDE 0.9% 250 ML IVPB STA (16:08)
[2019-11-30] MEDS ORDERED: NALOXONE 0.4 MG/ML 1 ML VIAL IV PRN (16:21)
[2019-11-30 16:32] LABS: Appearance,Urine Clear (Clear); Bilirubin,Urine Negative (Negative); Blood,Urine Negative (Negative); Calcium Oxalate Crystals,Urine Few /hpf; Color,Urine Yellow; Glucose,Urine (UA) Negative (Negative); Hyaline Casts,Urine 4 /lpf (0-2); Ketones,Urine Negative (Negative); Leukocyte Esterase,Urine Trace (Negative); Mucus,Urine Rare /hpf; Nitrite,Urine Negative (Negative); PH, Urine 5.5 (5.0-8.0); Protein,Urine 1+ (Negative); Specific Gravity,Urine 1.027 (1.001-1.035); Squamous Epithelial Cell,Urine <1 /hpf (0-4); WBC,Urine 2 /hpf (0-5)
[2019-11-30] MEDS: DIAZEPAM 5 MG/ML 2 ML INJ IVP PRN ×2 (17:00→21:02)
[2019-11-30] MEDS: SODIUM CHLORIDE 0.9% 1,000 ML IV SCH (17:04)
[2019-11-30] MEDS ORDERED: Potassium Replacement Protocol 1 EACH MISC MISCELLANE PRN (18:35)
[2019-11-30] MEDS ORDERED: HALOPERIDOL LACTATE 5 MG/ML 1 ML VIAL IVP PRN (19:07)
[2019-11-30] MEDS ORDERED: DONEPEZIL 10 MG TAB PO SCH (21:00)
[2019-11-30] MEDS: diazePAM 5 MG TAB PO SCH (22:44)
[2019-11-30] MEDS: MEMANTINE 10 MG TAB PO SCH (22:44)
[2019-11-30] MEDS: RIVAROXABAN 20 MG TAB PO SCH (22:45)
[2019-12-01] MEDS ORDERED: FUROSEMIDE 10 MG/ML 2 ML VIAL IV ONE (00:05)
--- NOTE | 2019-12-01 00:37 | XR ---
EXAMINATION TYPE: XR chest 1V portable DATE OF EXAM: 12/01/2019 COMPARISON: Yesterday HISTORY: Dysrhythmia. Short of breath. TECHNIQUE: FINDINGS: Heart is enlarged. There is pulmonary edema. There is blunting of the costophrenic angles. There are chest leads. IMPRESSION: Congestive heart failure with pleural effusions with slight increased pulmonary edema com pared to yesterday.
[2019-12-01 00:53] LABS: Potassium 3.3 mmol/L (3.5-5.1)
[2019-12-01] MEDS: ALBUTEROL NEBULIZED 2.5 MG/3 ML INHALATION PRN ×2 (04:38→12:06)
[2019-12-01] MEDS: POTASSIUM CHLORIDE ER 20 MEQ TAB.ER PO SCH ×3 (04:58→08:16)
[2019-12-01] MEDS: DIAZEPAM 5 MG/ML 2 ML INJ IVP PRN (05:11)
[2019-12-01 08:04] LABS: Calcium 10.3 mg/dL (8.4-10.2); Potassium 3.1 mmol/L (3.5-5.1)
[2019-12-01] MEDS: LORATADINE 10 MG TAB PO SCH (08:15)
[2019-12-01] MEDS: MEMANTINE 10 MG TAB PO SCH (08:15)
[2019-12-01] MEDS: SERTRALINE 50 MG TAB PO SCH (08:15)
[2019-12-01] MEDS: ATORVASTATIN 10 MG TAB PO SCH (08:15)
[2019-12-01] MEDS ORDERED: POTASSIUM CHLORIDE ER 20 MEQ TAB.ER PO STA (10:21)
--- NOTE | 2019-12-01 10:22 | P.CRDCN ---
History of Present Illness Consult date: 12/01/19 Consult reason: atrial fibrillation (w RVR) History of present illness: History of present illness: This is an 89-year-old female with past medical history of episode of atrial fibrillation, hypertension, dementia. patient is unable to provide any history due to her dementia. Daughter is at bedside and states the patient was diagnosed with non-Hodgkin's lymphoma 15 years ago and had episode of atrial fibrillation while she was undergoing chemotherapy. This has not been a problem following that. Approximately 10 years ago in [place], MRI of the brain was done and found to have old stroke with recommendations for aspirin. She has follow-up with Dr. Hirsch who placed her on Xarelto.daughter denies any recent episodes of atrial fibrillation. Patient is normally ambulatory and he has had some vague complaints of chest pain with walking. Daughter noticed that she was not acting right and was having more difficulty carrying on conversation. Urinalysis was taken to Dr. Hirsch's office which was reported as negative to the family. Home care was set up and home care nurse noted the patient had edema and concern for heart failure and recommended that the patient come in the hospital for evaluation. patient is complaining of pain all over her body with a complaint of chest discomfort. Patient is complaining of nausea.patient does not follow with phlebotomy lab assistant. Patient presented to [facility] emergency center with initial heart rate of 144. EKG was atrial fibrillation with RVR. Blood pressure 133/81, pulse ox 97% on room air. CBC was unremarkable. Sodium 146, potassium 3.4, chloride 115, CO2 23, BUN 29 creatinine 2.75. Blood sugar 109. INR is 1.3. Troponin 0.012. TSH 2.640. Troponin 0.012. ProBNP 3080. Chest x-ray reveals congestive heart failure with pleural effusions with slight increased pulmonary edema. Patient was started on azithromycin for possible pneumonia, potassium was replaced, started on Cardizem drip and admitted to the cardiac stepdown unit. Repeat potassium morning is 3.1 Review Of Systems: Constitutional: No fever, no chills. No weakness, fatigue or lethargy. EENT: No headache. No dizziness. Lungs: No shortness of breath, cough, no sputum production. No wheezing. Cardiovascular: No chest pain, no lower extremity edema. No palpitations. No paroxysmal nocturnal dyspnea. No orthopnea. No lightheadedness or dizziness. No syncopal episodes. Abdominal: No abdominal pain. No nausea, vomiting. No diarrhea. No constipation. No bloody or tarry stools.. No loss of appetite. Genitourinary: No dysuria.. No urinary retention. Musculoskeletal: No myalgias. No muscle weakness, no gait dysfunction, no frequent falls. No back pain. No neck pain. Integumentary: No wounds, no lesions. No rash or pruritus. No unusual bruising. Neurologic: No aphasia. No facial droop. No change in mentation. No head injury. No headache. No paralysis. No paresthesia. Psychiatric: No depression. No anxiety. Endocrine: No abnormal blood sugars. Physical examination: Gen: This is an 89-year-old female. Patient is resting in bed with eyes closed and appears to be comfortable. She responds easily to verbal stimuli is noted to be very confused. VS: afebrile, heart rate 106, blood pressure 139/87, pulse ox 95% on room air. HEENT: Head is atraumatic, normocephalic. Pupils equal, round. Sclerae is anicteric. NECK: Supple. No JVD. No lymphadenopathy. No thyromegaly. LUNGS: Clear to auscultation. No wheezes or rhonchi. No intercostal retractions. HEART: Regular rate and rhythm. No murmur. ABDOMEN: Soft. Bowel sounds are present. No masses. No tenderness. EXTREMITIES: No pedal edema. No calf tenderness. NEUROLOGICAL: Patient is awake, alert confused. Assessment: Atrial fibrillation with RVR, paroxysmal atrial fibrillation acute heart failure, possible systolic, obtain echocardiogram Episode of atrial fibrillation 15 years ago while undergoing chemotherapy for non-Hodgkin's lymphoma Hypokalemia dementia with worsening symptoms Hypertension History of stroke Plan: Discontinue Cardizem drip Start Lopressor 25 mg twice daily Continue Xarelto Lasix 20 mg IV daily Obtain 2-D echocardiogram and Doppler study to assess cardiac structure and function Further recommendations to follow based upon clinical course Thank you kindly for this consultation. Nurse practitioner note has been reviewed, I agree with documented findings and plan of care. Patient was seen and examined. 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 History of Any Multi-Drug Resistant Organisms: None Reported Past Surgical History: Bowel Resection, Hysterectomy, Orthopedic Surgery Past Anesthesia/Blood Transfusion Reactions: No Reported Reaction Past Psychological History: No Psychological Hx Reported Smoking Status: Former smoker Past Alcohol Use History: None Reported Past Drug Use History: None Reported - Past Family History Mother Family Medical History: Cancer Additional Family Medical History / Comment(s): lung CA Father Family Medical History: CVA/TIA, Diabetes Mellitus Medications and Allergies Home Medications Medication Instructions Recorded Confirmed Type Atorvastatin [Lipitor] 10 mg PO DAILY 11/21/18 11/30/19 History Cetirizine HCl [Zyrtec] 10 mg PO DAILY 11/21/18 11/30/19 History Donepezil HCl [Aricept] 10 mg PO HS 11/21/18 11/30/19 History Melatonin 5 mg PO HS PRN 11/21/18 11/30/19 History Memantine [Namenda] 10 mg PO BID 11/21/18 11/30/19 History Rivaroxaban [Xarelto] 20 mg PO HS 11/21/18 11/30/19 History Acetaminophen [Tylenol Arthritis] 650 mg PO BID PRN 11/30/19 11/30/19 History Diazepam [Valium] 2.5 mg PO HS 11/30/19 11/30/19 History Sertraline [Zoloft] 50 mg PO DAILY 11/30/19 11/30/19 History Allergies Allergy/AdvReac Type Severity Reaction Status Date / Time Penicillins Allergy Rash/Hives Verified 11/30/19 14:56 Sulfa (Sulfonamide Allergy Rash/Hives Verified 11/30/19 14:56 Antibiotics) Physical Exam Vitals: Vital Signs Temp Pulse Pulse Resp BP BP Pulse Ox 12/01/19 08:12 97.6 F 106 H 16 139/87 95 12/01/19 04:47 88 12/01/19 04:39 84 12/01/19 04:00 95 20 148/91 95 12/01/19 00:00 97.8 F 97 18 109/78 95 11/30/19 20:00 97.9 F 90 22 132/86 94 L 11/30/19 19:30 101/64 11/30/19 17:20 19 11/30/19 16:46 81 18 127/97 97 11/30/19 14:44 105 H 18 129/98 97 11/30/19 13:03 144 H 18 133/81 97 Intake and Output 11/30/19 12/01/19 12/01/19 22:59 06:59 14:59 Output Total 200 200 Balance -200 -200 Output: Urine 200 200 Other: Voiding Method Bedside Commode Bedside Commode Diaper Weight 61.235 kg 62.5 kg Results 11/30/19 13:59 12/01/19 06:58 Cardiac Enzymes 11/30/19 11/30/19 Range/Units 13:59 13:59 AST 22 (14-36) U/L Troponin I <0.012 (0.000-0.034) ng/mL Coagulation 11/30/19 Range/Units 13:59 PT 13.1 H (9.0-12.0) sec APTT 29.0 (22.0-30.0) sec CBC 11/30/19 Range/Units 13:59 WBC 8.7 (3.8-10.6) k/uL RBC 3.80 (3.80-5.40) m/uL Hgb 12.5 (11.4-16.0) gm/dL Hct 38.9 (34.0-46.0) % Plt Count 173 (150-450) k/uL Comprehensive Metabolic Panel 11/30/19 12/01/19 12/01/19 Range/Units 13:59 00:16 06:58 Sodium 146 H 144 145 (137-145) mmol/L Potassium 3.4 L 3.3 L 3.1 L (3.5-5.1) mmol/L Chloride 115 H 112 H 111 H (98-107) mmol/L Carbon Dioxide 23 28 28 (22-30) mmol/L BUN 29 H 28 H 26 H (7-17) mg/dL Creatinine 0.75 0.81 0.85 (0.52-1.04) mg/dL Glucose 109 H 141 H 116 H (74-99) mg/dL Calcium 9.8 10.0 10.3 H (8.4-10.2) mg/dL AST 22 (14-36) U/L ALT 18 (4-34) U/L Alkaline Phosphatase 85 (38-126) U/L Total Protein 5.8 L (6.3-8.2) g/dL Albumin 3.6 (3.5-5.0) g/dL Current Medications Generic Name Dose Route Start Last Admin Trade Name Freq PRN Reason Stop Dose Admin Acetaminophen 650 mg 11/30/19 18:44 Acetaminophen Tab 325 Mg Tab PO BID PRN Pain Albuterol Sulfate 2.5 mg 12/01/19 00:07 12/01/19 04:38 Albuterol Nebulized 2.5 Mg/3 Ml INHALATION 2.5 mg RT-QID PRN Administration Shortness Of Breath Or Wheezing Atorvastatin Calcium 10 mg 12/01/19 09:00 12/01/19 08:15 Atorvastatin 10 Mg Tab PO 10 mg DAILY JEANNETTE Administration Diazepam 2.5 mg 11/30/19 16:50 12/01/19 05:11 Diazepam 5 Mg/Ml 2 Ml Inj IVP 2.5 mg Q6H PRN Administration Agitation Diazepam 2.5 mg 11/30/19 21:00 11/30/19 22:44 Diazepam 5 Mg Tab PO 2.5 mg HS JEANNETTE Administration Donepezil HCl 10 mg 11/30/19 21:00 11/30/19 22:44 Donepezil 10 Mg Tab PO 10 mg HS JEANNETTE Administration Haloperidol Lactate 1 mg 11/30/19 19:07 Haloperidol Lactate 5 Mg/Ml 1 Ml Vial IVP Q6HR PRN Agitation or Acute Psychosis Diltiazem HCl 125 mg/ Sodium 125 mls @ 5 mls/hr 11/30/19 13:30 11/30/19 14:37 Chloride IV 5 mg/hr .Q24H JEANNETTE 5 mls/hr Administration 5 MG/HR Sodium Chloride 1,000 mls @ 20 mls/hr 11/30/19 16:30 11/30/19 17:04 Saline 0.9% IV 20 mls/hr .Q24H JEANNETTE Administration Loratadine 10 mg 12/01/19 09:00 12/01/19 08:15 Loratadine 10 Mg Tab PO 10 mg DAILY JEANNETTE Administration Melatonin 5 mg 11/30/19 18:44 Melatonin 5 Mg Tablet PO HS PRN Insomnia Memantine 10 mg 11/30/19 21:00 12/01/19 08:15 Memantine 10 Mg Tab PO 10 mg BID JEANNETTE Administration Miscellaneous Information 1 each 11/30/19 18:35 Potassium Replacement Protocol 1 Each Misc MISCELLANE DAILY PRN Per Protocol Protocol Naloxone HCl 0.2 mg 11/30/19 16:21 Naloxone 0.4 Mg/Ml 1 Ml Vial IV Q2M PRN Opioid Reversal Rivaroxaban 20 mg 11/30/19 21:00 11/30/19 22:45 Rivaroxaban 20 Mg Tab PO 20 mg HS JEANNETTE Administration Sertraline HCl 50 mg 12/01/19 09:00 12/01/19 08:15 Sertraline 50 Mg Tab PO 50 mg DAILY JEANNETTE Administration Intake and Output 11/30/19 12/01/19 12/01/19 22:59 06:59 14:59 Output Total 200 200 Balance -200 -200 Output: Urine 200 200 Other: Voiding Method Bedside Commode Bedside Commode Diaper Weight 61.235 kg 62.5 kg 11/30/19 13:59 12/01/19 06:58
[2019-12-01] MEDS: METOPROLOL TARTRATE 25 MG TAB PO SCH ×2 (10:29→21:27)
[2019-12-01] MEDS ORDERED: ONDANSETRON 4 MG/2 ML VIAL IVP PRN (11:30)
[2019-12-01] MEDS ORDERED: FUROSEMIDE 10 MG/ML 4 ML VIAL IV STA ×2 (11:42→17:38)
[2019-12-01] MEDS: FUROSEMIDE 10 MG/ML 2 ML VIAL IV SCH (11:55)
[2019-12-01] MEDS: POTASSIUM CHLORIDE ER 10 MEQ TAB.ER.PRT PO SCH ×2 (13:39→21:27)
[2019-12-01] MEDS: ACETAMINOPHEN TAB 325 MG TAB PO PRN ×2 (14:20→23:33)
[2019-12-01] MEDS: SACUBITRIL/VALSARTAN 24 MG-26 MG TABLET PO SCH ×2 (14:20→23:35)
--- NOTE | 2019-12-01 14:49 | ECHOF ---
Referral Reason:afib MEASUREMENTS -------- HEIGHT: 165.1 cm WEIGHT: 62.1 kg BP: 148/91 RVIDd: 3.4 cm (< 3.3) IVSd: 1.5 cm (0.6 - 1.1) LVIDd: 3.6 cm (3.9 - 5.3) LVPWd: 1.3 cm (0.6 - 1.1) IVSs: 1.5 cm LVIDs: 2.8 cm LVPWs: 2.0 cm LAESV Index (A-L): 58.89 ml/m Ao Diam: 2.3 cm (2.0 - 3.7) AV Cusp: 1.8 cm (1.5 - 2.6) LA Diam: 5.2 cm (2.7 - 3.8) MV EXCURSION: 17.918 mm (> 18.000) MV EF SLOPE: 78 mm/s (70 - 150) EPSS: 0.8 cm RAP: 5.00 mmHg RVSP: 51.81 mmHg FINDINGS -------- This was a technically adequate study. The left ventricular size is normal. There is moderate concentric left ventricular hypertrophy. O verall left ventricular systolic function is mild-moderately impaired with, an EF between 40 - 45 %. Left ventricular fillimg pressure cannot be estimated due to Atrial fibrillation. The right ventricle is mildly enlarged. LA is severely dilated >40 ml/m2 The right atrium is moderately enlarged. Interatrial and interventricular septum intact. The aortic valve is trileaflet and appears structurally normal. There is mild aortic valve sclerosi s. There is no evidence of aortic regurgitation. There is no evidence of aortic stenosis. Severe posteriorly directed mitral regurgitation is present. Mild tethering of the posterior leaflet , no significant flail leaflet noted however may consider BARTOLO to better evaluate etiology of MR if cl inically indicated. Moderate to severe tricuspid regurgitation present. There is moderate to severe pulmonary hypertens ion. The right ventricular systolic pressure, as measured by Doppler, is 51.81mmHg. Trace/mild (physiologic) pulmonic regurgitation. The aortic root size is normal. The inferior vena cava is mildly dilated. There is a trivial pericardial effusion present. Pleural effusion noted CONCLUSIONS -------- 1. The left ventricular size is normal. 2. There is moderate concentric left ventricular hypertrophy. 3. Overall left ventricular systolic function is mild-moderately impaired with, an EF between 40 - 45 %. 4. The right ventricle is mildly enlarged. 5. LA is severely dilated >40 ml/m2 6. The right atrium is moderately enlarged. 7. There is mild aortic valve sclerosis. 8. Severe posteriorly directed mitral regurgitation is present. Mild tethering of the posterior leaf let, no significant flail leaflet noted however may consider BARTOLO to better evaluate etiology of MR if clinically indicated. 9. Moderate to severe tricuspid regurgitation present. 10. There is moderate to severe pulmonary hypertension. 11. The right ventricular systolic pressure, as measured by Doppler, is 51.81mmHg. 12. Trace/mild (physiologic) pulmonic regurgitation. 13. Pleural effusion noted [employer]: Emily Romo RDCS
--- NOTE | 2019-12-01 15:27 | HP ---
HISTORY AND PHYSICAL CHIEF COMPLAINT: Fast heart rate. HISTORY OF PRESENT ILLNESS: This is another admission for this 89-year-old white female who has dementia. Home care nurse did notice that she had a high pulse rate around 120-130 and sent her in. She has had no other symptoms, but her daughter thinks she has been a little bit more short of breath lately. She has chronic atrial fibrillation. She has profound dementia. There has been nothing to suggest any other problems such as orthopnea, cough, fever and chills, etc. In the emergency room, she had a heart rate of around 130. REVIEW OF SYSTEMS: Unobtainable. Past medical history, family history and personal and social histories were all unobtainable. Her record in the office indicates that she has had quite a bit of difficulty with her dementia and delirium and her daughter is living with her. She takes Valium as needed to control her delirium. She is on Xarelto 20 mg once a day, memantine 10 mg twice a day, atorvastatin 10 mg once a day, donepezil 10 mg at night, sertraline 50 mg once a day, Zyrtec 10 mg once a day, calcium and B12. She does not smoke or drink. PHYSICAL EXAMINATION: Blood pressure is 142/80 with a pulse of 86, respirations of 35, and she is afebrile. General, she appeared to be well developed, well nourished, no acute distress. Skin color is normal. Skin is warm and dry. Lymph nodes are not enlarged. Head, ears, eyes, nose, mouth, and throat were normal. She is awake and alert. Chest is clear. Cardiac exam demonstrated atrial fibrillation. Abdomen is soft and nontender without visceromegaly or masses. Bowel sounds are present. Extremities are normal. Neurological shows she is intact. She is admitted to the hospital with the diagnoses of: 1. Atrial fibrillation with rapid ventricular response. 2. Dementia. 3. Mild congestive heart failure. PLAN: 1. Bed rest. 2. IV fluids. 3. Cardizem drip and control ventricular response rate. 4. Cardiology consult. 5. Echocardiogram. 6. Manage her congestive heart failure. MMODL / IJN: [id number] /
--- NOTE | 2019-12-01 15:36 | PN ---
PROGRESS NOTE DATE OF SERVICE: 12/01/2019 CHIEF COMPLAINT: Atrial fibrillation and congestive heart failure. HISTORY OF PRESENT ILLNESS: This lady is awake and alert, but has been quite agitated on and off during the night for which she has received tranquilizers and she has been fairly stable. She is having a problem with mild congestive heart failure and this will be addressed. Her x-ray demonstrates cardiomegaly with congestive heart failure and bilateral pleural effusions. Entresto in a small dose will be started. PHYSICAL EXAMINATION: There are decreased breath sounds with scattered rales throughout. Cardiac exam demonstrates atrial fibrillation. Abdomen is soft, nontender. IMPRESSION: 1. Atrial fibrillation with rapid ventricular response. 2. Congestive heart failure. 3. Dementia. PLAN: Add Entresto and manage her hypokalemia as well with oral potassium for the time being. MMODL / IJN: [id number] /
[2019-12-01] MEDS: SODIUM CHLORIDE 0.9% 1,000 ML IV SCH (16:38)
[2019-12-01] MEDS: ALBUTEROL NEBULIZED 2.5 MG/3 ML INHALATION SCH ×2 (16:50→20:33)
[2019-12-01 18:11] LABS: Magnesium 1.8 mg/dL (1.6-2.3); Potassium 4.3 mmol/L (3.5-5.1)
--- NOTE | 2019-12-01 20:22 | P.CNNES ---
History of Present Illness Consult date: 12/01/19 Reason for Consult: Dementia Alzheimer's type History of Present Illness: The patient is an 89-year-old female who is seen in neurologic consultation on December 01, 2019 via teleneurology. The patient's daughter is at the bedside. She says that her mother has been following with her family doctor regarding her dementia. She was diagnosed with dementia 7-8 years ago. She has been taking Aricept and Namenda for the past 7 years. It was just recommended that she see a neurologist. Because of the pandemic and the patient's inability to cooperate with wearing a mask, the neurologist has not been seen at this point. The patient was admitted to the hospital with mental status changes, atrial fibrillation with rapid ventricular response and it was decided that neurology would be able to give some input. The patient's daughter reports that her mother lives with her. She has become increasingly agitated. They have not found a medication to be beneficial at this point. The daughter reports that her mother tends to become more agitated in the evening time. She is often awake until 4 AM in the morning. The patient reportedly is able to walk at baseline and feed herself. She knows that her daughter's name is "Gabriella" however does not always realize that it is her daughter. Patient reportedly roams around the house looking for her "mom and dad". The daughter reports that they have tried Celexa, BuSpar, and Risperdal for anxiety, without benefit. 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 History of Any Multi-Drug Resistant Organisms: None Reported Past Surgical History: Bowel Resection, Hysterectomy, Orthopedic Surgery Additional Past Surgical History / Comment(s): left eye surgery Past Anesthesia/Blood Transfusion Reactions: No Reported Reaction Past Psychological History: No Psychological Hx Reported Smoking Status: Former smoker Past Alcohol Use History: None Reported Past Drug Use History: None Reported - Past Family History Mother Family Medical History: Cancer Additional Family Medical History / Comment(s): lung CA Father Family Medical History: CVA/TIA, Diabetes Mellitus Medications and Allergies Home Medications Medication Instructions Recorded Confirmed Type Atorvastatin [Lipitor] 10 mg PO DAILY 11/21/18 11/30/19 History Cetirizine HCl [Zyrtec] 10 mg PO DAILY 11/21/18 11/30/19 History Donepezil HCl [Aricept] 10 mg PO HS 11/21/18 11/30/19 History Melatonin 5 mg PO HS PRN 11/21/18 11/30/19 History Memantine [Namenda] 10 mg PO BID 11/21/18 11/30/19 History Rivaroxaban [Xarelto] 20 mg PO HS 11/21/18 11/30/19 History Acetaminophen [Tylenol Arthritis] 650 mg PO BID PRN 11/30/19 11/30/19 History Diazepam [Valium] 2.5 mg PO HS 11/30/19 11/30/19 History Sertraline [Zoloft] 50 mg PO DAILY 11/30/19 11/30/19 History Allergies Allergy/AdvReac Type Severity Reaction Status Date / Time Penicillins Allergy Rash/Hives Verified 11/30/19 14:56 Sulfa (Sulfonamide Allergy Rash/Hives Verified 11/30/19 14:56 Antibiotics) Physical Examination - Vital Signs Vital Signs: Vital Signs Temp Pulse Pulse Pulse Resp BP BP 12/01/19 12:35 24 12/01/19 12:30 98.7 F 102 H 26 H 130/86 12/01/19 12:18 118 H 12/01/19 12:08 30 L 12/01/19 08:12 97.6 F 106 H 16 139/87 12/01/19 04:47 88 12/01/19 04:39 84 12/01/19 04:00 95 20 148/91 12/01/19 00:00 97.8 F 97 18 109/78 11/30/19 20:00 97.9 F 90 22 132/86 11/30/19 19:30 101/64 11/30/19 17:20 19 11/30/19 16:46 81 18 127/97 Pulse Ox 12/01/19 12:35 95 12/01/19 12:30 86 L 12/01/19 12:18 12/01/19 12:08 12/01/19 08:12 95 12/01/19 04:47 12/01/19 04:39 12/01/19 04:00 95 12/01/19 00:00 95 11/30/19 20:00 94 L 11/30/19 19:30 11/30/19 17:20 11/30/19 16:46 97 Intake and Output 12/01/19 12/01/19 12/01/19 06:59 14:59 22:59 Intake Total 226.667 Output Total 200 200 Balance -200 26.667 Intake: IV 10 Invasive Line 2 10 Intake, IV Titration 100.667 Amount Diltiazem 125 mg In 100.667 Sodium Chloride 0.9% 100 ml @ 5 MG/HR 5 mls/hr IV .Q24H [facility] Rx#:[id number] Oral 116 Output: Urine 200 200 Other: Voiding Method Bedside Commode Diaper Weight 62.5 kg 62.5 kg Gen.: The patient is reclining in the bed. She is currently refusing to wear her oxygen. She is somewhat agitated. HEENT: Head is atraumatic, normocephalic. Fundus not visualized. There is no scleral icterus. Heart: Irregularly irregular Extremities: Without edema Neurological examination The patient is poorly cooperative with this examination Mental status: The patient is awake and alert. The patient refuses to cooperate with the examination, "not today", she says. Cranial nerves: Pupils are surgical. The patient does blink to visual threat. There is no obvious facial asymmetry. Motor: The patient is moving all 4 extremities. Country Sales Manager strength is symmetric. Coordination: There is no obvious tremor or past pointing Results - Laboratory Findings CBC and BMP: 11/30/19 13:59 12/01/19 17:26 Abnormal Lab Findings: Abnormal Labs 11/30/19 11/30/19 11/30/19 13:59 13:59 13:59 MCV 102.4 H PT 13.1 H INR 1.3 H Sodium Potassium Chloride BUN Glucose Calcium Total Bilirubin Total Protein Urine Protein 1+ H Ur Leukocyte Esterase Trace H Calcium Oxalate Crystal Few H Hyaline Casts 4 H Urine Mucus Rare H 11/30/19 12/01/19 12/01/19 13:59 00:16 06:58 MCV PT INR Sodium 146 H Potassium 3.4 L 3.3 L 3.1 L Chloride 115 H 112 H 111 H BUN 29 H 28 H 26 H Glucose 109 H 141 H 116 H Calcium 10.3 H Total Bilirubin 2.1 H Total Protein 5.8 L Urine Protein Ur Leukocyte Esterase Calcium Oxalate Crystal Hyaline Casts Urine Mucus Assessment and Plan Assessment: 1. Advanced Alzheimer's disease, with agitation 2. Multiple medical problems Plan: 1. Begin Seroquel 25 mg daily at bedtime, for agitation 2. I discussed with the patient's daughter, the fact that it is very likely that Aricept and Namenda are providing benefit for the patient at this time. Would recommend discontinuation. The daughter agrees. 3. Agree with melatonin at bedtime 4. Advised the daughter not to combine Seroquel and Valium. Time with Patient: Greater than 30 (spent 40 minutes with patient via teleneurology)
[2019-12-01] MEDS: QUEtiapine 25 MG TAB PO SCH (21:27)
[2019-12-01] MEDS: RIVAROXABAN 20 MG TAB PO SCH (21:27)
[2019-12-01] MEDS: diazePAM 5 MG TAB PO SCH (21:27)
[2019-12-02] MEDS: ALBUTEROL NEBULIZED 2.5 MG/3 ML INHALATION SCH ×4 (08:24→19:44)
[2019-12-02] MEDS: ATORVASTATIN 10 MG TAB PO SCH (08:52)
[2019-12-02] MEDS: METOPROLOL TARTRATE 25 MG TAB PO SCH ×2 (08:52→20:06)
[2019-12-02] MEDS: POTASSIUM CHLORIDE ER 10 MEQ TAB.ER.PRT PO SCH ×2 (08:52→20:06)
[2019-12-02] MEDS: FUROSEMIDE 10 MG/ML 2 ML VIAL IV SCH (08:52)
[2019-12-02] MEDS: SACUBITRIL/VALSARTAN 24 MG-26 MG TABLET PO SCH ×2 (08:53→20:25)
[2019-12-02] MEDS: SERTRALINE 50 MG TAB PO SCH (08:53)
[2019-12-02] MEDS: ACETAMINOPHEN TAB 325 MG TAB PO PRN (08:54)
[2019-12-02] MEDS: LORATADINE 10 MG TAB PO SCH (08:54)
--- NOTE | 2019-12-02 11:51 | PN ---
PROGRESS NOTE CHIEF COMPLAINT: Atrial fibrillation with rapid ventricular response and congestive heart failure. HISTORY OF PRESENT ILLNESS: This lady is doing just about the same. She still has a rapid heart rate at around 112. She has been placed on beta kirby. Occasionally her pulse drops down into the 30s. It is not clear if this is related to the beta kirby or is a manifestation of poor electrical conduction system in the myocardium. She is still becoming quite restless at night. Potassium is now up to a normal range. She has been seen by Neurology. PHYSICAL EXAMINATION: She still has decreased breath sounds at the bases. Cardiac exam demonstrates atrial fibrillation with a rate of around 110. Abdomen: Soft, nontender. IMPRESSION: 1. Atrial fibrillation with rapid ventricular response. 2. Congestive heart failure. 3. Bilateral pleural effusions. 4. Dementia. 5. Delirium. PLAN: 1. Valium will be stopped at neurology's request. 2. This patient is a candidate for pacemaker if she continues to develop episodes of bradycardia. Age and dementia are conflicting factors. MMODL / IJN: [id number] /
[2019-12-02] MEDS: SODIUM CHLORIDE 0.9% 1,000 ML IV SCH (15:13)
--- NOTE | 2019-12-02 16:29 | P.PN ---
Subjective Progress Note Date: 12/02/19 History of present illness: This is an 89-year-old female with past medical history of episode of atrial fibrillation, hypertension, dementia. patient is unable to provide any history due to her dementia. Daughter is at bedside and states the patient was diagnosed with non-Hodgkin's lymphoma 15 years ago and had episode of atrial fibrillation while she was undergoing chemotherapy. This has not been a problem following that. Approximately 10 years ago in [place], MRI of the brain was done and found to have old stroke with recommendations for aspirin. She has fol low-up with Dr. Hirsch who placed her on Xarelto.daughter denies any recent episodes of atrial fibrillation. Patient is normally ambulatory and he has had some vague complaints of chest pain with walking. Daughter noticed that she was not acting right and was having more difficulty carrying on conversation. Urinalysis was taken to Dr. Hirsch's office which was reported as negative to the family. Home care was set up and home care nurse noted the patient had edema and concern for heart failure and recommended that the patient come in the hospital for evaluation. patient is complaining of pain all over her body with a complaint of chest discomfort. Patient is complaining of nausea.patient does not follow with pull socket assembler. 12/02/2019 patient seen and examined. Patient required sedation overnight for agitation and sundowning. Patient somnolent but arousable. History is supplied by daughter. 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 She additionally had episodes of bradycardia with heart rates in the 30s and apparently was somewhat symptomatic during these episodes with feeling of lightheadedness. She has been on rate control medications with Lopressor 25 twice a day for Afib with HR's predominantly 90- 120's. Entresto was added by primary team. Physical examination: Gen: This is an 89-year-old female. Patient is resting in bed with eyes closed and appears to be comfortable. She responds easily to verbal stimuli is noted to be very confused. VS: afebrile, heart rate 85, blood pressure 107/80, pulse ox 95% on room air. HEENT: Head is atraumatic, normocephalic. Pupils equal, round. Sclerae is anicteric. NECK: Supple. No JVD. No lymphadenopathy. No thyromegaly. LUNGS: decreased breath sounds at bases HEART: irregularly irregular rate and rhythm. +4/6 holosystolic murmur. ABDOMEN: Soft. Bowel sounds are present. No masses. No tenderness. EXTREMITIES: No pedal edema. No calf tenderness. NEUROLOGICAL: Patient is somnolent but arousable and confused. Assessment: Atrial fibrillation with RVR, paroxysmal atrial fibrillation acute on chronic systolic heart failure Severe mitral regurgitation Pulmonary hypertension with RVSP 51 moderate to severe tricuspid regurgitation Episode of atrial fibrillation 15 years ago while undergoing chemotherapy for non-Hodgkin's lymphoma Hypokalemia dementia with worsening symptoms and mood disorder Hypertension History of stroke tachybradycardia syndrome with tachycardia with heart rates in the 110s to 120s and bradycardic episodes with heart rates in the 30s. Plan: Continue Xarelto for anticoagulation for atrial fibrillation Continue diuresis with Lasix 20 mg IV daily however monitor fluid status as patient is currently not eating Had long discussion with daughter at bedside regarding goals of care. patient with significant dementia however over the last few months has been fairly functional with patient going on walks with a fair quality of life. patient does have severe mitral regurgitation which is likely chronic, possibly related to tethering of posterior leaflet. I do not see any evidence of flail leaflet on echocardiogram. Patient is not a surgical candidate and do not feel she would be a good mitral clip candidate at this stage given her significant dementia. also discussed component of tachybradycardia syndrome with possible need for permanent pacemaker. We must rule out any significant infection before possible pacemaker. Daughter agreeable to PPM if needed. We will continue to monitor extent of tachybrady syndrome. Further recommendations to follow based upon clinical course. Objective - Vital Signs Vital signs: Vital Signs Temp 98.6 F 12/02/19 11:25 Pulse 111 H 12/02/19 11:25 Resp 16 12/02/19 11:25 BP 129/88 12/02/19 11:25 Pulse Ox 95 12/02/19 11:25 Intake & Output 12/01/19 12/02/19 12/02/19 18:59 06:59 18:59 Intake Total 354.667 30 20 Output Total 200 Balance 154.667 30 20 Weight 62.5 kg 53 kg Intake: IV 20 30 20 Invasive Line 2 20 30 20 Intake, IV Titration 100.667 Amount Diltiazem 125 mg In 100.667 Sodium Chloride 0.9% 100 ml @ 5 MG/HR 5 mls/hr IV .Q24H [facility] Rx#:[id number] Oral 234 Output: Urine 200 Other: Voiding Method Bedside Commode Bedside Commode Bedside Commode Diaper Diaper Diaper # Voids 2 1 - Labs CBC & Chem 7: 11/30/19 13:59 12/01/19 17:26
[2019-12-02] MEDS: MELATONIN 5 MG TABLET PO PRN (20:07)
[2019-12-02] MEDS: RIVAROXABAN 20 MG TAB PO SCH (20:07)
[2019-12-02] MEDS: QUEtiapine 25 MG TAB PO SCH (20:07)
[2019-12-03] MEDS: ALBUTEROL NEBULIZED 2.5 MG/3 ML INHALATION SCH ×4 (08:11→19:59)
[2019-12-03] MEDS: FUROSEMIDE 10 MG/ML 2 ML VIAL IV SCH (09:24)
[2019-12-03] MEDS: LORATADINE 10 MG TAB PO SCH (09:24)
[2019-12-03] MEDS: SERTRALINE 50 MG TAB PO SCH (09:24)
[2019-12-03] MEDS: POTASSIUM CHLORIDE ER 10 MEQ TAB.ER.PRT PO SCH ×2 (09:25→20:14)
[2019-12-03] MEDS: METOPROLOL TARTRATE 25 MG TAB PO SCH ×2 (09:25→20:14)
[2019-12-03] MEDS: SACUBITRIL/VALSARTAN 24 MG-26 MG TABLET PO SCH ×2 (09:25→20:14)
[2019-12-03] MEDS: ATORVASTATIN 10 MG TAB PO SCH (09:25)
[2019-12-03] MEDS: ACETAMINOPHEN TAB 325 MG TAB PO PRN (09:27)
[2019-12-03 11:43] LABS: Calcium 10.4 mg/dL (8.4-10.2); Potassium 4.1 mmol/L (3.5-5.1)
--- NOTE | 2019-12-03 11:56 | P.PN ---
Subjective Progress Note Date: 12/03/19 CHIEF COMPLAINT: A. fib with RVR HISTORY OF PRESENT ILLNESS: Patient examined this morning at the bedside. Patient's daughter is present. Patient is somewhat lethargic on examination. She remains confused which is the patient's baseline. Patient continues to have episodes of tachycardia. No significant bradycardia noted on telemetry overnight. PHYSICAL EXAM: VITAL SIGNS: Reviewed. GENERAL: Well-developed in no acute distress. NECK: Supple. No JVD or thyromegaly LUNGS: Respirations even and unlabored. Lungs essentially clear to auscultation bilaterally. HEART: Irregular rate and rhythm. S1 and S2 heard. EXTREMITIES: Normal range of motion. No clubbing or cyanosis. Peripheral pulses intact. No lower extremity edema ASSESSMENT: Paroxysmal atrial fibrillation with RVR Acute on chronic systolic heart failure Severe mitral regurgitation Pulmonary hypertension with RVSP 51 Moderate to severe tricuspid regurgitation Episode of atrial fibrillation 15 years ago while undergoing chemotherapy for non-Hodgkin's lymphoma Hypokalemia dementia with worsening symptoms and mood disorder Hypertension History of stroke Tachybradycardia syndrome with tachycardia with heart rates in the 110s to 120s and bradycardic episodes with heart rates in the 30s. PLAN: Continue IV lasix for today Repeat chest xray in AM Continue beta kirby Will continue to monitor telemetry. If patient has persistent episodes of bradycardia, will discuss PPM more in depth with daughter. However, at this time will continue to monitor telemetry and continue with current management Nurse practitioner note has been reviewed by physician. Signing provider agrees with the documented findings, assessment, and plan of care. Objective - Vital Signs Vital signs: Vital Signs Temp 97.9 F 12/03/19 08:10 Pulse 109 H 12/03/19 11:44 Resp 18 12/03/19 11:22 BP 109/76 12/03/19 08:10 Pulse Ox 98 12/03/19 08:11 Intake & Output 12/02/19 12/03/19 12/03/19 18:59 06:59 18:59 Intake Total 330 Balance 330 Weight 50.5 kg Intake: IV 30 Invasive Line 2 30 Oral 300 Other: Voiding Method Bedside Commode Bedside Commode Bedside Commode Diaper Diaper Diaper # Voids 1 - Labs CBC & Chem 7: 11/30/19 13:59 12/03/19 11:11 Labs: Abnormal Lab Results - Last 24 Hours (Table) 12/03/19 Range/Units 11:11 Sodium 149 H (137-145) mmol/L Chloride 112 H (98-107) mmol/L Carbon Dioxide 31 H (22-30) mmol/L BUN 31 H (7-17) mg/dL Glucose 144 H (74-99) mg/dL Calcium 10.4 H (8.4-10.2) mg/dL
[2019-12-03 14:47] LABS: Albumin 3.8 g/dL (3.5-5.0); Calcium 10.5 mg/dL (8.4-10.2); Potassium 4.1 mmol/L (3.5-5.1)
[2019-12-03 15:02] LABS: Basophils # (A) 0.1 k/uL (0-0.2); Basophils % (A) 1 %; Eosinophils # (A) 0.2 k/uL (0-0.7); Eosinophils % (A) 2 %; HCT 40.2 % (34.0-46.0); HGB 12.6 gm/dL (11.4-16.0); Hypochromasia Moderate; Lymphocytes # (A) 1.7 k/uL (1.0-4.8); Lymphocytes % (A) 16 %; MCH 32.1 pg (25.0-35.0); MCHC 31.4 g/dL (31.0-37.0); MCV 102.4 fL (80.0-100.0); Macrocytosis Slight; Mean Platelet Volume 10.4; Monocytes # (A) 0.8 k/uL (0-1.0); Monocytes % (A) 7 %; Neutrophils # (A) 7.9 k/uL (1.3-7.7); Neutrophils % (A) 74 %; Platelet Count 177 k/uL (150-450); RBC 3.93 m/uL (3.80-5.40); RDW 14.2 % (11.5-15.5); WBC 10.7 k/uL (3.8-10.6)
[2019-12-03] MEDS: polyethylene glycoL 3350 17 GM POWD.PACK PO SCH (16:42)
--- NOTE | 2019-12-03 17:58 | PN ---
PROGRESS NOTE CHIEF COMPLAINT: Atrial fibrillation and congestive heart failure. HISTORY OF PRESENT ILLNESS: This lady has not had a bowel movement since she has been here, and she will be started on MiraLAX. Heart rate remains slightly high and she has still had occasional drops in her ventricular response rate. PHYSICAL EXAMINATION: She is awake and alert but confused. Skin color is normal. Skin is dry. Head, ears, eyes, nose, mouth and are normal. Chest is clear. Cardiac exam demonstrates a heart rate which is irregularly regular at around 100 to 110. Abdomen is soft and nontender. IMPRESSION: 1. Atrial fibrillation with rapid ventricular response. 2. Congestive heart failure. 3. Episodes of bradycardia. 4. Bilateral pleural effusions. 5. Possible constipation. PLAN: 1. Repeat chest x-ray and laboratory studies. 2. Physical therapy. 3. BNP. 4. MiraLAX. MMODL / IJN: [id number] /
--- NOTE | 2019-12-03 18:04 | XR ---
EXAMINATION TYPE: XR chest 1V portable DATE OF EXAM: 12/03/2019 COMPARISON: 12/01/2019 HISTORY: Short of breath TECHNIQUE: Single view FINDINGS: Heart is enlarged. There is prominent vascular congestion. There is blunting of the costoph renic angles. There are chest leads. IMPRESSION: There is mild congestive heart failure that is improved compared to recent exam. Pleural fluid unchanged.
--- NOTE | 2019-12-03 20:10 | P.PN ---
Subjective Progress Note Date: 12/03/19 Patient was seen for a follow-up. Patient was seen by Dr. Ren on 12/01/2019. Please refer to her note for details. Patient has advanced Alzheimer's dementia with agitation. Patient also has history of atrial fibrillation, dementia and hypertension. Patient admitted for high heart rate and bilateral ankle swelling. Patient has received some medication in the hospital, including Haldol, which made her very sleepy, worsening of her baseline level of functioning. Patient's daughter has been living with her for the last 7 years because of dementia. Patient has been on Aricept and Namenda. She is still quite functional, as patient eats by herself although patient's daughter lays food on the table for her. Patient also has aggressive behavior, agitation and anger issues. She was able to ambulate by herself. Patient was started on Seroquel for behavior probably triggered dementia. Patient's Aricept and Namenda were also discontinued. Objective - Vital Signs Vital signs: Vital Signs Temp 97.9 F 12/03/19 08:10 Pulse 80 12/03/19 19:59 Resp 14 12/03/19 19:59 BP 124/85 12/03/19 16:27 Pulse Ox 94 L 12/03/19 16:27 Intake & Output 12/03/19 12/03/19 12/04/19 06:59 18:59 06:59 Intake Total 300 Balance 300 Weight 50.5 kg Intake: Oral 300 Other: Voiding Method Bedside Commode Bedside Commode Diaper Diaper # Voids 1 2 - Exam Patient is laying comfortably in the bed. Patient's daughter was present. Patient plays with the blanket. Patient moves all 4 extremities. Face is symmetric. Detail testing deferred. - Labs CBC & Chem 7: 12/03/19 13:44 12/03/19 13:44 Labs: Abnormal Lab Results - Last 24 Hours (Table) 12/03/19 12/03/19 12/03/19 Range/Units 11:11 13:44 13:44 WBC 10.7 H (3.8-10.6) k/uL MCV 102.4 H (80.0-100.0) fL Neutrophils # 7.9 H (1.3-7.7) k/uL Sodium 149 H 148 H (137-145) mmol/L Chloride 112 H 110 H (98-107) mmol/L Carbon Dioxide 31 H (22-30) mmol/L BUN 31 H 31 H (7-17) mg/dL Glucose 144 H 136 H (74-99) mg/dL Calcium 10.4 H 10.5 H (8.4-10.2) mg/dL Total Bilirubin 2.0 H (0.2-1.3) mg/dL ALT 40 H (4-34) U/L Total Protein 6.0 L (6.3-8.2) g/dL Assessment and Plan Assessment: * Alzheimer's dementia, fairly advanced. * Altered mental status, likely due to delirium related to hospi talization/medications. * Atrial fibrillation on long-term anticoagulation Plan: * Patient has advanced dementia, but she still semi-functional. She communicates with her daughter, able to feed by herself, also somewhat ambulatory. Her current acute worsening is likely due to delirium from cardiac and medication reasons. * As patient is still have some preserved cognitive function, interacts with her daughter, therefore I would suggest resuming Aricept 10 mg and Namenda 10 mg twice a day, as long as patient is tolerating these medications well. Patient's daughter believes that she takes medication without issues. Therefore I would resume these medications. Patient's daughter agrees. * Continue Seroquel for behavioral disturbance. Patient has been sleeping well for the last 2 nights. * Patient's thyroid functions are normal. We will check B12, folate.
[2019-12-03] MEDS: RIVAROXABAN 20 MG TAB PO SCH (20:14)
[2019-12-03] MEDS: MEMANTINE 10 MG TAB PO SCH (20:14)
[2019-12-03] MEDS: QUEtiapine 25 MG TAB PO SCH (20:14)
[2019-12-03] MEDS: MELATONIN 5 MG TABLET PO PRN (20:14)
[2019-12-03] MEDS ORDERED: DONEPEZIL 10 MG TAB PO SCH (21:00)
[2019-12-04] MEDS: ALBUTEROL NEBULIZED 2.5 MG/3 ML INHALATION SCH ×4 (07:13→19:26)
[2019-12-04 07:32] LABS: Folate, Serum 11.7 ng/mL
--- NOTE | 2019-12-04 07:45 | XR ---
EXAMINATION TYPE: XR chest 1V portable DATE OF EXAM: 12/04/2019 HISTORY: Shortness of breath. COMPARISON: 12/03/2019 TECHNIQUE: Single view of the chest is submitted. FINDINGS: Demonstrated are scattered senescent parenchymal change. Pulmonary venous congestion with small basilar effusions and infiltrates may reflect underlying conge stive failure. Infiltrates of other etiology not excluded. Appropriate follow-up advised. The heart is stable. Hilar and mediastinal structures are within normal limits. Degenerative changes are seen of the dorsal spine. IMPRESSION: 1. Pulmonary venous congestion with small basilar effusions and infiltrates may reflect underlying c ongestive failure. Infiltrates of other etiology not excluded. Appropriate follow-up advised.
[2019-12-04 08:13] LABS: Calcium 10.4 mg/dL (8.4-10.2); Potassium 4.4 mmol/L (3.5-5.1)
[2019-12-04] MEDS: SERTRALINE 50 MG TAB PO SCH (09:11)
[2019-12-04] MEDS: METOPROLOL TARTRATE 25 MG TAB PO SCH ×2 (09:11→20:31)
[2019-12-04] MEDS: FUROSEMIDE 10 MG/ML 2 ML VIAL IV SCH (09:11)
[2019-12-04] MEDS: ATORVASTATIN 10 MG TAB PO SCH (09:11)
[2019-12-04] MEDS: LORATADINE 10 MG TAB PO SCH (09:11)
[2019-12-04] MEDS: MEMANTINE 10 MG TAB PO SCH ×2 (09:11→20:31)
[2019-12-04] MEDS: SACUBITRIL/VALSARTAN 24 MG-26 MG TABLET PO SCH ×2 (09:15→20:31)
[2019-12-04] MEDS: POTASSIUM CHLORIDE ER 10 MEQ TAB.ER.PRT PO SCH ×2 (09:15→20:31)
[2019-12-04] MEDS: polyethylene glycoL 3350 17 GM POWD.PACK PO SCH (09:15)
--- NOTE | 2019-12-04 11:37 | P.PN ---
Subjective Progress Note Date: 12/04/19 CHIEF COMPLAINT: A. fib with RVR HISTORY OF PRESENT ILLNESS: Patient examined this morning at the bedside. Patient's daughter is present. She remains confused which is the patient's baseline. No significant bradycardia noted on telemetry overnight. CXR today shows pulmonary venous congestion, small effusions, and infiltrates. PHYSICAL EXAM: VITAL SIGNS: Reviewed. GENERAL: Well-developed in no acute distress. NECK: Supple. No JVD or thyromegaly LUNGS: Respirations even and unlabored. Lungs essentially clear to auscultation bilaterally. HEART: Irregular rate and rhythm. S1 and S2 heard. EXTREMITIES: Normal range of motion. No clubbing or cyanosis. Peripheral pulses intact. No lower extremity edema ASSESSMENT: Paroxysmal atrial fibrillation with RVR Acute on chronic systolic heart failure Severe mitral regurgitation Pulmonary hypertension with RVSP 51 Moderate to severe tricuspid regurgitation Episode of atrial fibrillation 15 years ago while undergoing chemotherapy for non-Hodgkin's lymphoma Hypokalemia Dementia with worsening symptoms and mood disorder Hypertension History of stroke Tachybradycardia syndrome with tachycardia with heart rates in the 110s to 120s and bradycardic episodes with heart rates in the 30s. PLAN: Discontinue IV lasix Begin PO lasix 20mg PO BID Continue beta kirby Will continue to monitor telemetry. If patient has persistent episodes of bradycardia, will discuss PPM more in depth with daughter. However, at this time will continue to monitor telemetry and continue with current management Nurse practitioner note has been reviewed by physician. Signing provider agrees with the documented findings, assessment, and plan of care. Objective - Vital Signs Vital signs: Vital Signs Temp 97.8 F 12/04/19 09:28 Pulse 116 H 12/04/19 11:28 Resp 17 12/04/19 09:28 BP 120/84 12/04/19 09:28 Pulse Ox 99 12/04/19 09:28 Intake & Output 12/03/19 12/04/19 12/04/19 18:59 06:59 18:59 Intake Total 300 Balance 300 Weight 54 kg Intake: Oral 300 Other: Voiding Method Bedside Commode Bedside Commode Bedside Commode Diaper Diaper Diaper # Voids 2 1 - Labs CBC & Chem 7: 12/03/19 13:44 12/04/19 06:47 Labs: Abnormal Lab Results - Last 24 Hours (Table) 12/03/19 12/03/19 12/03/19 Range/Units 11:11 13:44 13:44 WBC 10.7 H (3.8-10.6) k/uL MCV 102.4 H (80.0-100.0) fL Neutrophils # 7.9 H (1.3-7.7) k/uL Sodium 149 H 148 H (137-145) mmol/L Chloride 112 H 110 H (98-107) mmol/L Carbon Dioxide 31 H (22-30) mmol/L BUN 31 H 31 H (7-17) mg/dL Glucose 144 H 136 H (74-99) mg/dL Calcium 10.4 H 10.5 H (8.4-10.2) mg/dL Total Bilirubin 2.0 H (0.2-1.3) mg/dL ALT 40 H (4-34) U/L Total Protein 6.0 L (6.3-8.2) g/dL 12/04/19 Range/Units 06:47 WBC (3.8-10.6) k/uL MCV (80.0-100.0) fL Neutrophils # (1.3-7.7) k/uL Sodium 148 H (137-145) mmol/L Chloride 114 H (98-107) mmol/L Carbon Dioxide (22-30) mmol/L BUN 34 H (7-17) mg/dL Glucose 119 H (74-99) mg/dL Calcium 10.4 H (8.4-10.2) mg/dL Total Bilirubin (0.2-1.3) mg/dL ALT (4-34) U/L Total Protein (6.3-8.2) g/dL
[2019-12-04] MEDS: FUROSEMIDE 20 MG TAB PO SCH (15:59)
--- NOTE | 2019-12-04 16:53 | P.PN ---
Subjective Progress Note Date: 12/04/19 12/04/2019: Patient was seen for a follow-up. Patient's son was present. Patient has face mask on. According to her son, patient has been somnolent. When she wakes up, does get agitated. No new concerns. 12/03/2019: Patient was seen for a follow-up. Patient was seen by Dr. Ren on 12/01/2019. Please refer to her note for details. Patient has advanced Alzheimer's dementia with agitation. Patient also has history of atrial fibrillation, dementia and hypertension. Patient admitted for high heart rate and bilateral ankle swelling. Patient has received some medication in the hospital, including Haldol, which made her very sleepy, worsening of her baseline level of functioning. Patient's daughter has been living with her for the last 7 years because of dementia. Patient has been on Aricept and Namenda. She is still quite functional, as patient eats by herself although patient's daughter lays food on the table for her. Patient also has aggressive behavior, agitation and anger issues. She was able to ambulate by herself. Patient was started on Seroquel for behavior probably triggered dementia. Patient's Aricept and Namenda were also discontinued. Objective - Vital Signs Vital signs: Vital Signs Temp 98.5 F 12/04/19 12:05 Pulse 113 H 12/04/19 15:33 Resp 17 12/04/19 12:05 BP 117/72 12/04/19 12:05 Pulse Ox 94 L 12/04/19 12:05 Intake & Output 12/03/19 12/04/19 12/04/19 18:59 06:59 18:59 Intake Total 300 240 Balance 300 240 Weight 54 kg Intake: Oral 300 240 Other: Voiding Method Bedside Commode Bedside Commode Bedside Commode Diaper Diaper Diaper # Voids 2 1 1 # Bowel Movements 0 - Exam Patient is laying comfortably in the bed. Patient's son was present. patient is somewhat sleeping. Did not wake her up. Patient moves all 4 extremities. Face is symmetric. Detail testing deferred. - Labs CBC & Chem 7: 12/03/19 13:44 12/04/19 06:47 Labs: Abnormal Lab Results - Last 24 Hours (Table) 12/04/19 Range/Units 06:47 Sodium 148 H (137-145) mmol/L Chloride 114 H (98-107) mmol/L BUN 34 H (7-17) mg/dL Glucose 119 H (74-99) mg/dL Calcium 10.4 H (8.4-10.2) mg/dL Assessment and Plan Assessment: * Alzheimer's dementia, fairly advanced. * Altered mental status, likely due to delirium related to hospitalization/medications. * Atrial fibrillation on long-term anticoagulation Plan: * Patient Will continue Namenda 10 mg twice a day. Because of risk of cardiac conduction block, would stop Aricept. * Continue Seroquel for behavioral disturbance. * Patient's thyroid functions are normal. * B12 slightly low 280, we'll start replacement. Folic acid 11.7.
[2019-12-04] MEDS: CYANOCOBALAMIN 1,000 MCG/ML 1 ML VIAL IM SCH (17:48)
[2019-12-04] MEDS: RIVAROXABAN 20 MG TAB PO SCH (20:31)
[2019-12-04] MEDS: QUEtiapine 25 MG TAB PO SCH (20:31)
[2019-12-05] MEDS: METOPROLOL TARTRATE 25 MG TAB PO SCH ×2 (08:28→21:33)
[2019-12-05] MEDS: SACUBITRIL/VALSARTAN 24 MG-26 MG TABLET PO SCH ×2 (08:28→21:33)
[2019-12-05] MEDS: LORATADINE 10 MG TAB PO SCH (08:28)
[2019-12-05] MEDS: FUROSEMIDE 20 MG TAB PO SCH ×3 (08:28→16:36)
[2019-12-05] MEDS: ATORVASTATIN 10 MG TAB PO SCH (08:28)
[2019-12-05] MEDS: MEMANTINE 10 MG TAB PO SCH ×2 (08:28→21:33)
[2019-12-05] MEDS: POTASSIUM CHLORIDE ER 10 MEQ TAB.ER.PRT PO SCH ×2 (08:28→21:33)
[2019-12-05] MEDS: SERTRALINE 50 MG TAB PO SCH (08:28)
[2019-12-05] MEDS: polyethylene glycoL 3350 17 GM POWD.PACK PO SCH (08:29)
[2019-12-05] MEDS: ALBUTEROL NEBULIZED 2.5 MG/3 ML INHALATION SCH ×4 (08:29→19:56)
[2019-12-05] MEDS: CYANOCOBALAMIN 1,000 MCG/ML 1 ML VIAL IM SCH (08:40)
[2019-12-05 13:48] LABS: Calcium 10.9 mg/dL (8.4-10.2); Potassium 4.4 mmol/L (3.5-5.1)
--- NOTE | 2019-12-05 16:33 | P.PN ---
Subjective Progress Note Date: 12/05/19 12/05/2019: Patient's daughter was present today. Patient has been very sleepy throughout the day. Not agitated. 12/04/2019: Patient was seen for a follow-up. Patient's son was present. Patient has face mask on. According to her son, patient has been somnolent. When she wakes up, does get agitated. No new concerns. 12/03/2019: Patient was seen for a follow-up. Patient was seen by Dr. Ren on 12/01/2019. Please refer to her note for details. Patient has advanced Alzheimer's dementia with agitation. Patient also has history of atrial fibrillation, dementia and hypertension. Patient admitted for high heart rate and bilateral ankle swelling. Patient has received some medication in the hospital, including Haldol, which made her very sleepy, worsening of her baseline level of functioning. Patient's daughter has been living with her for the last 7 years because of dementia. Patient has been on Aricept and Namenda. She is still quite functional, as patient eats by herself although patient's daughter lays food on the table for her. Patient also has aggressive behavior, agitation and anger issues. She was able to ambulate by herself. Patient was started on Seroquel for behavior probably triggered dementia. Patient's Aricept and Namenda were also discontinued. Objective - Vital Signs Vital signs: Vital Signs Temp 96.1 F L 12/05/19 15:37 Pulse 98 12/05/19 15:38 Resp 16 12/05/19 15:37 BP 117/78 12/05/19 15:37 Pulse Ox 92 L 12/05/19 15:37 Intake & Output 12/04/19 12/05/19 12/05/19 18:59 06:59 18:59 Intake Total 330 90 Balance 330 90 Weight 49 kg 49 kg Intake: Oral 330 90 Other: Voiding Method Bedside Commode Bedside Commode Bedside Commode Diaper Diaper Diaper # Voids 1 1 # Bowel Movements 0 - Exam Patient is sleeping. Detail examination deferred. - Labs CBC & Chem 7: 12/03/19 13:44 12/05/19 12:36 Labs: Abnormal Lab Results - Last 24 Hours (Table) 12/05/19 Range/Units 12:36 Sodium 149 H (137-145) mmol/L Chloride 112 H (98-107) mmol/L BUN 38 H (7-17) mg/dL Creatinine 1.07 H (0.52-1.04) mg/dL Glucose 150 H (74-99) mg/dL Calcium 10.9 H (8.4-10.2) mg/dL Assessment and Plan Assessment: * Alzheimer's dementia, fairly advanced. * Altered mental status, likely due to delirium related to hospitalization/medications. * Atrial fibrillation on long-term anticoagulation Plan: * Continue Namenda 10 mg twice a day. Because of risk of cardiac conduction block, stay off Aricept. * Continue Seroquel 25 mg at bedtime for behavioral disturbance. Patient is also on Zoloft 50 mg every morning. Patient has been excessively sleepy. Would suggest decreasing dose of Seroquel to 12.5 mg or Zoloft 25 mg. * Patient's thyroid functions are normal. * B12 slightly low 280, we'll start replacement. Folic acid 11.7.
--- NOTE | 2019-12-05 19:02 | PN ---
PROGRESS NOTE DATE OF SERVICE: 12/04/2019 CHIEF COMPLAINT: Atrial fibrillation and congestive heart failure. HISTORY OF PRESENT ILLNESS: This lady seems to be doing fairly well. It looks as though she is not dropping her pulse down into the 30s and 40s as she was. She is fairly calm and remains confused. Heart failure seems to be improved. PHYSICAL EXAMINATION: Her chest is fairly clear with only occasional rales and rhonchi. Cardiac exam continues to reveal atrial fibrillation with a rate of around 100. Abdomen is soft, nontender. IMPRESSION: 1. Atrial fibrillation with rapid ventricular response. 2. Congestive heart failure. 3. Dementia. PLAN: Start to consider discharge arrangement or plan. MMODL / IJN: [id number] /
--- NOTE | 2019-12-05 19:53 | PN ---
PROGRESS NOTE DATE OF SERVICE: 12/05/2019 CHIEF COMPLAINT: Atrial fibrillation and congestive heart failure. HISTORY OF PRESENT ILLNESS: This lady is stabilizing. She is unable to bear weight. Family understands that she will have to go to rehab. We spent quite a bit of time talking about the options, and we will refer her case to [facility] for discharge planning. PHYSICAL EXAMINATION: Chest is clear. Cardiac exam demonstrates her atrial fibrillation and she is still running a rate of around 100. It seems to be tolerated. IMPRESSION: 1. Atrial fibrillation with rapid ventricular response. 2. Congestive heart failure. 3. Dementia. PLAN: [facility] consult for halfway placement and rehab. MMODL / IJN: [id number] /
[2019-12-05] MEDS: QUEtiapine 25 MG TAB PO SCH (21:33)
[2019-12-05] MEDS: RIVAROXABAN 15 MG TAB PO SCH (21:33)
[2019-12-06] MEDS: ALBUTEROL NEBULIZED 2.5 MG/3 ML INHALATION SCH ×4 (07:32→18:48)
[2019-12-06] MEDS: MEMANTINE 10 MG TAB PO SCH ×2 (07:49→21:51)
[2019-12-06] MEDS: LORATADINE 10 MG TAB PO SCH (07:49)
[2019-12-06] MEDS: SACUBITRIL/VALSARTAN 24 MG-26 MG TABLET PO SCH ×2 (07:49→21:51)
[2019-12-06] MEDS: METOPROLOL TARTRATE 25 MG TAB PO SCH ×2 (07:49→16:53)
[2019-12-06] MEDS: SERTRALINE 50 MG TAB PO SCH (07:49)
[2019-12-06] MEDS: POTASSIUM CHLORIDE ER 10 MEQ TAB.ER.PRT PO SCH ×2 (07:49→21:51)
[2019-12-06] MEDS: FUROSEMIDE 20 MG TAB PO SCH ×2 (07:49→16:53)
[2019-12-06] MEDS: ATORVASTATIN 10 MG TAB PO SCH (07:50)
[2019-12-06] MEDS: CYANOCOBALAMIN 1,000 MCG/ML 1 ML VIAL IM SCH (07:50)
[2019-12-06] MEDS: polyethylene glycoL 3350 17 GM POWD.PACK PO SCH (07:56)
[2019-12-06 08:49] LABS: Calcium 10.3 mg/dL (8.4-10.2); Potassium 3.8 mmol/L (3.5-5.1)
[2019-12-06 09:02] LABS: Basophils % (A) 0 %; Eosinophils # (A) 0.2 k/uL (0-0.7); Eosinophils % (A) 3 %; HCT 43.5 % (34.0-46.0); HGB 13.1 gm/dL (11.4-16.0); Hypochromasia Marked; Lymphocytes # (A) 1.8 k/uL (1.0-4.8); Lymphocytes % (A) 19 %; MCH 31.5 pg (25.0-35.0); MCHC 30.1 g/dL (31.0-37.0); MCV 104.5 fL (80.0-100.0); Macrocytosis Slight; Mean Platelet Volume 10.9; Monocytes # (A) 0.7 k/uL (0-1.0); Monocytes % (A) 7 %; Neutrophils # (A) 6.5 k/uL (1.3-7.7); Neutrophils % (A) 69 %; Platelet Count 175 k/uL (150-450); RBC 4.16 m/uL (3.80-5.40); WBC 9.5 k/uL (3.8-10.6)
--- NOTE | 2019-12-06 15:04 | P.PN ---
Subjective Progress Note Date: 12/06/19 12/06/2019: Patient's son was present today. Patient apparently slept from noon yesterday, and woke up at around 7:30 AM this morning. Patient does get agitated and started swinging around. Otherwise quite alert and awake. 12/05/2019: Patient's daughter was present today. Patient has been very sleepy throughout the day. Not agitated. 12/04/2019: Patient was seen for a follow-up. Patient's son was present. Patient has face mask on. According to her son, patient has been somnolent. When she wakes up, does get agitated. No new concerns. 12/03/2019: Patient was seen for a follow-up. Patient was seen by Dr. Ren on 12/01/2019. Please refer to her note for details. Patient has advanced Alzheimer's dementia with agitation. Patient also has history of atrial fibrillation, dementia and hypertension. Patient admitted for high heart rate and bilateral ankle swelling. Patient has received some medication in the hospital, including Haldol, which made her very sleepy, worsening of her baseline level of functioning. Patient's daughter has been living with her for the last 7 years because of dementia. Patient has been on Aricept and Namenda. She is still quite functio nal, as patient eats by herself although patient's daughter lays food on the table for her. Patient also has aggressive behavior, agitation and anger issues. She was able to ambulate by herself. Patient was started on Seroquel for behavior probably triggered dementia. Patient's Aricept and Namenda were also discontinued. Objective - Vital Signs Vital signs: Vital Signs Temp 97.7 F 12/06/19 07:47 Pulse 80 12/06/19 11:56 Resp 18 12/06/19 07:47 BP 96/54 12/06/19 11:56 Pulse Ox 91 L 12/06/19 11:56 Intake & Output 12/05/19 12/06/19 12/06/19 18:59 06:59 18:59 Intake Total 90 180 Balance 90 180 Weight 49 kg 45.5 kg Intake: Oral 90 180 Other: Voiding Method Bedside Commode Bedside Commode Diaper Diaper # Voids 1 2 # Bowel Movements 1 1 - Exam Patient is alert and awake, but as I was talking to patient's son, she started dosing. Patient's son states that she does get edgy, and started swinging her arms and legs therefore stay away. - Labs CBC & Chem 7: 12/06/19 07:41 12/06/19 07:41 Labs: Abnormal Lab Results - Last 24 Hours (Table) 12/06/19 12/06/19 Range/Units 07:41 07:41 MCV 104.5 H (80.0-100.0) fL MCHC 30.1 L (31.0-37.0) g/dL Sodium 149 H (137-145) mmol/L Chloride 112 H (98-107) mmol/L Carbon Dioxide 32 H (22-30) mmol/L BUN 39 H (7-17) mg/dL Glucose 106 H (74-99) mg/dL Calcium 10.3 H (8.4-10.2) mg/dL Assessment and Plan Assessment: * Alzheimer's dementia, fairly advanced. * Altered mental status, likely due to delirium related to hos pitalization/medications. * Atrial fibrillation on long-term anticoagulation Plan: * Continue Namenda 10 mg twice a day. Because of risk of cardiac conduction block, stay off Aricept. * Change Seroquel to 25 mg at bedtime as needed. Continue Zoloft 50 mg every morning. * Patient's thyroid functions are normal. * B12 slightly low 280, we'll start replacement. Folic acid 11.7. * Neurologically clear for discharge.
--- NOTE | 2019-12-06 16:04 | PN ---
PROGRESS NOTE DATE OF SERVICE: 12/06/2019 CHIEF COMPLAINT: Atrial fibrillation with rapid ventricular response and congestive heart failure. HISTORY OF PRESENT ILLNESS: This lady seems to be improving. Pulse rate is still high at times, but does not seem to be dropping into the 30s and 40s. Delirium has cleared but she remains confused. correction placement is being sought. PHYSICAL EXAMINATION: Chest is clear and cardiac exam is unchanged with the atrial fibrillation. The abdomen is soft and the extremities are normal. She is awake and alert. IMPRESSION: 1. Atrial fibrillation. 2. Congestive heart failure. 3. Dementia. 4. Delirium. PLAN: Continue with current program and seek [facility] placement. MMODL / IJN: [id number] /
[2019-12-06] MEDS: RIVAROXABAN 15 MG TAB PO SCH (21:51)
[2019-12-07] MEDS: ALBUTEROL NEBULIZED 2.5 MG/3 ML INHALATION SCH ×4 (07:38→20:25)
[2019-12-07] MEDS: SERTRALINE 50 MG TAB PO SCH (09:25)
[2019-12-07] MEDS: LORATADINE 10 MG TAB PO SCH (09:25)
[2019-12-07] MEDS: SACUBITRIL/VALSARTAN 24 MG-26 MG TABLET PO SCH ×2 (09:25→22:45)
[2019-12-07] MEDS: FUROSEMIDE 20 MG TAB PO SCH ×2 (09:25→16:02)
[2019-12-07] MEDS: METOPROLOL TARTRATE 25 MG TAB PO SCH ×2 (09:25→21:05)
[2019-12-07] MEDS: MEMANTINE 10 MG TAB PO SCH ×2 (09:25→21:05)
[2019-12-07] MEDS: ATORVASTATIN 10 MG TAB PO SCH (09:25)
[2019-12-07] MEDS: POTASSIUM CHLORIDE ER 10 MEQ TAB.ER.PRT PO SCH ×2 (09:25→21:05)
[2019-12-07] MEDS: CYANOCOBALAMIN 1,000 MCG/ML 1 ML VIAL IM SCH (11:09)
[2019-12-07] MEDS: polyethylene glycoL 3350 17 GM POWD.PACK PO SCH (11:09)
--- NOTE | 2019-12-07 14:43 | P.PN ---
Subjective Progress Note Date: 12/07/19 12/07/2019: Patient's son was present today. Patient last night became somewhat agitated, restless, for which she received Seroquel 25 mg. Thereafter she slept. This morning she was awake and alert, but now seems to be sleeping again. Patient's son is comfortable with this regimen. 12/06/2019: Patient's son was present today. Patient apparently slept from noon yesterday, and woke up at around 7:30 AM this morning. Patient does get agitated and started swinging around. Otherwise quite alert and awake. 12/05/2019: Patient's daughter was present today. Patient has been very sleepy throughout the day. Not agitated. 12/04/2019: Patient was seen for a follow-up. Patient's son was present. Patient has face mask on. According to her son, patient has been somnolent. When she wakes up, does get agitated. No new concerns. 12/03/2019: Patient was seen for a follow-up. Patient was seen by Dr. Ren on 12/01/2019. Please refer to her note for details. Patient has advanced Alzheimer's dementia with agitation. Patient also has history of atrial fibrillation, dementia and hypertension. Patient admitted for high heart rate and bilateral ankle swelling. Patient has received some medication in the hospital, including Haldol, which made her very sleepy, worsening of her baseline level of functioning. Patient's daughter has been living with her for the last 7 years because of dementia. Patient has been on Aricept and Namenda. She is still quite functional, as patient eats by herself although patient's daughter lays food on the table for her. Patient also has aggressive behavior, agitation and anger issues. She was able to ambulate by herself. Patient was started on Seroquel for behavior probably triggered dementia. Patient's Aricept and Namenda were also discontinued. Objective - Vital Signs Vital signs: Vital Signs Temp 97.7 F 12/07/19 08:00 Pulse 102 H 12/07/19 08:00 Resp 18 12/07/19 08:00 BP 133/86 12/07/19 08:00 Pulse Ox 92 L 12/07/19 08:00 Intake & Output 12/06/19 12/07/19 12/07/19 18:59 06:59 18:59 Intake Total 280 0 Balance 280 0 Weight 47 kg 47 kg Intake: Oral 280 0 Other: Voiding Method Diaper Diaper Diaper # Voids 1 2 1 # Bowel Movements 1 - Exam Patient is sleeping at this time. Detail testing deferred. - Labs CBC & Chem 7: 12/06/19 07:41 12/06/19 07:41 Assessment and Plan Assessment: * Advanced Alzheimer's dementia, with behavioral disturbance. * Altered mental status, likely due to delirium related to hospitalization/medications. * Atrial fibrillation on long-term anticoagulation Plan: * Continue Namenda 10 mg twice a day. Because of risk of cardiac conduction block, stay off Aricept. * Change Seroquel to 25 mg at bedtime as needed. Continue Zoloft 50 mg every morning. Patient's son is comfortable with this regimen. * Patient's thyroid functions are normal. * B12 slightly low 280, continue B12 replacement, with monthly B12 injections. Folic acid 11.7. * Neurologically clear for discharge. Possible transfer to [facility] on Tuesday. Discussed with [facility]. * Neurology will sign off.
[2019-12-07] MEDS: DEXTROSE 5%-0.2% NACL 1,000 ML IV SCH (17:48)
[2019-12-07] MEDS: RIVAROXABAN 15 MG TAB PO SCH (21:05)
[2019-12-07] MEDS: QUEtiapine 25 MG TAB PO PRN (21:06)
[2019-12-08] MEDS: DEXTROSE 5%-0.2% NACL 1,000 ML IV SCH ×2 (06:45→15:26)
[2019-12-08 08:13] LABS: Basophils % (A) 0 %; Eosinophils # (A) 0.4 k/uL (0-0.7); Eosinophils % (A) 5 %; HCT 43.7 % (34.0-46.0); HGB 13.2 gm/dL (11.4-16.0); Hypochromasia Moderate; Lymphocytes # (A) 2.5 k/uL (1.0-4.8); Lymphocytes % (A) 26 %; MCH 31.1 pg (25.0-35.0); MCHC 30.1 g/dL (31.0-37.0); MCV 103.2 fL (80.0-100.0); Macrocytosis Slight; Mean Platelet Volume 10.6; Monocytes # (A) 0.7 k/uL (0-1.0); Monocytes % (A) 7 %; Neutrophils # (A) 5.8 k/uL (1.3-7.7); Neutrophils % (A) 60 %; Platelet Count 189 k/uL (150-450); RBC 4.24 m/uL (3.80-5.40); RDW 13.8 % (11.5-15.5); WBC 9.6 k/uL (3.8-10.6)
[2019-12-08] MEDS: ALBUTEROL NEBULIZED 2.5 MG/3 ML INHALATION SCH ×4 (08:33→21:12)
[2019-12-08 08:36] LABS: Potassium 3.5 mmol/L (3.5-5.1)
[2019-12-08] MEDS: FUROSEMIDE 20 MG TAB PO SCH ×2 (10:14→17:18)
[2019-12-08] MEDS: MEMANTINE 10 MG TAB PO SCH ×2 (10:14→20:57)
[2019-12-08] MEDS: POTASSIUM CHLORIDE ER 10 MEQ TAB.ER.PRT PO SCH ×2 (10:14→20:59)
[2019-12-08] MEDS: LORATADINE 10 MG TAB PO SCH (10:14)
[2019-12-08] MEDS: SACUBITRIL/VALSARTAN 24 MG-26 MG TABLET PO SCH ×2 (10:14→20:57)
[2019-12-08] MEDS: SERTRALINE 50 MG TAB PO SCH (10:14)
[2019-12-08] MEDS: CYANOCOBALAMIN 1,000 MCG/ML 1 ML VIAL IM SCH (10:14)
[2019-12-08] MEDS: METOPROLOL TARTRATE 25 MG TAB PO SCH ×2 (10:14→20:57)
[2019-12-08] MEDS: polyethylene glycoL 3350 17 GM POWD.PACK PO SCH (10:15)
[2019-12-08] MEDS: ATORVASTATIN 10 MG TAB PO SCH (10:15)
--- NOTE | 2019-12-08 15:57 | P.PN ---
Subjective Progress Note Date: 12/07/19 Principal diagnosis: Paroxysmal atrial fibrillation with RVR Acute on chronic systolic CHF Dementia with behavior disturbance 89-year-old female, history of episode of atrial fibrillation, hypertension, dementia. Patient is normally ambulatory and he has had some vague complaints of chest pain with walking. Daughter noticed that she was not acting right and was having more difficulty carrying on conversation. Urinalysis was taken to Dr. Hirsch's office which was reported as negative to the family. Home care was set up and home care nurse noted the patient had edema and concern for heart failure and recommended that the patient come in the hospital for evaluation. Patient has been evaluated by cardiology for paroxysmal A. fib with RVR and has been started on Xarelto for anticoagulation; patient was also in acute exacerbation of chronic systolic CHF upon admission and has been treated with IV Lasix Patient is currently being adjusted on medications for advanced dementia with behavior disturbance; neurology is on board; patient has been recommended to c ontinue Namenda 10 mg twice a day; Aricept has been discontinued for risk of cardiac conduction block; patient is started on Seroquel 25 mg daily at bedtime as needed for insomnia and behavioral disturbance; currently continuing with Zoloft 50 mg daily 12/07/2019 Today patient is followed up in room with patient's daughter at bedside; continued concern for poor oral intake; patient was discussed with dietary service, where recommending possible PEG tube placement for severe malnutrition; this was discussed with patient's daughter at bedside in great detail; according to daughter patient was very clear about no feeding tube when she was cognitively intact; noted does understand patient is severely malnourished and will continue to decline in absence of a feeding tube; we will continue with oral intake with frequent prompting during meals; patient remains on vitamin B12 supplement Currently rate controlled on Lopressor 25 mg twice a day with Xarelto 15 mg by mouth daily at bedtime for anticoagulation Objective - Vital Signs Vital signs: Vital Signs Temp 97.7 F 12/07/19 08:00 Pulse 102 H 12/07/19 08:00 Resp 18 12/07/19 08:00 BP 133/86 12/07/19 08:00 Pulse Ox 92 L 12/07/19 08:00 Intake & Output 12/06/19 12/07/19 12/07/19 18:59 06:59 18:59 Intake Total 280 0 Balance 280 0 Weight 47 kg 47 kg Intake: Oral 280 0 Other: Voiding Method Diaper Diaper Diaper # Voids 1 2 1 # Bowel Movements 1 - Exam PHYSICAL EXAMINATION: GENERAL: The patient is alert, not in any acute distress. Well developed, well nourished. HEENT: Pupils are round and equally reacting to light. EOMI. No scleral icterus. No conjunctival pallor. Normocephalic, atraumatic. No pharyngeal erythema. No thyromegaly. CARDIOVASCULAR: Atrial fibrillation. PULMONARY: Chest is clear to auscultation, no wheezing or crackles. ABDOMEN: Soft, nontender, nondistended, normoactive bowel sounds. No palpable o rganomegaly. MUSCULOSKELETAL: No joint swelling or deformity. EXTREMITIES: No cyanosis, clubbing, or pedal edema. NEUROLOGICAL: Gross neurological examination did not reveal any focal deficits. SKIN: No rashes. - Labs CBC & Chem 7: 12/08/19 07:09 12/08/19 07:09 Assessment and Plan Assessment: 1. Paroxysmal atrial fibrillation with RVR - Patient remains rate controlled on metoprolol with Xarelto for anticoagulation - Consideration to PPM if patient continues to have persistent episodes of bra dycardia 2. Acute on chronic systolic CHF; patient has been treated with Lasix 20 mg IV twice a day; patient is currently euvolemic; cardiology recommending to change Lasix to 20 mg by mouth twice a day 3. Vitamin B12 deficiency; continue with vitamin B12 supplement at thousand and 60 IM daily 4. Hypertension; metoprolol 25 mg twice a day, Entresto 2426 milligrams twice a day 5. Hyperlipidemia; Lipitor 10 mg by mouth daily at bedtime 6. Advanced dementia/depression; remains stable on Namenda 10 mg twice a day along with Seroquel for when necessary dosing; continue with current dose of Zoloft DVT prophylaxis; SCDs CODE STATUS; DO NOT RESUSCITATE
--- NOTE | 2019-12-08 16:47 | P.PN ---
Subjective Progress Note Date: 12/08/19 Principal diagnosis: Paroxysmal atrial fibrillation with RVR Acute on chronic systolic CHF Dementia with behavior disturbance 89-year-old female, history of episode of atrial fibrillation, hypertension, dementia. Patient is normally ambulatory and he has had some vague complaints of chest pain with walking. Daughter noticed that she was not acting right and was having more difficulty carrying on conversation. Urinalysis was taken to Dr. Hirsch's office which was reported as negative to the family. Home care was set up and home care nurse noted the patient had edema and concern for heart failure and recommended that the patient come in the hospital for evaluation. Patient has been evaluated by cardiology for paroxysmal A. fib with RVR and has been started on Xarelto for anticoagulation; patient was also in acute exacerbation of chronic systolic CHF upon admission and has been treated with IV Lasix Patient is currently being adjusted on medications for advanced dementia with behavior disturbance; neurology is on board; patient has been recommended to c ontinue Namenda 10 mg twice a day; Aricept has been discontinued for risk of cardiac conduction block; patient is started on Seroquel 25 mg daily at bedtime as needed for insomnia and behavioral disturbance; currently continuing with Zoloft 50 mg daily 12/07/2019 Today patient is followed up in room with patient's daughter at bedside; continued concern for poor oral intake; patient was discussed with dietary service, where recommending possible PEG tube placement for severe malnutrition; this was discussed with patient's daughter at bedside in great detail; according to daughter patient was very clear about no feeding tube when she was cognitively intact; noted does understand patient is severely malnourished and will continue to decline in absence of a feeding tube; we will continue with oral intake with frequent prompting during meals; patient remains on vitamin B12 supplement Currently rate controlled on Lopressor 25 mg twice a day with Xarelto 15 mg by mouth daily at bedtime for anticoagulation 12/08/2019 Patient is seen and evaluated in room at bedside; patient's family is present in the room; no specific concern; patient is more alert this morning Vital signs remained stable; Labs are reviewed with improved sodium level from 149 down to 144 this morning; patient was started on IV fluids in form of D5 0.2% normal saline; we will continue with IV fluids till oral intake improves Patient remains on Namenda 10 mg twice a day along with Seroquel 25 mg at at bedtime Patient discussed with case management in great detail; patient will be transferred to long-term care facility and Tuesday Objective - Vital Signs Vital signs: Vital Signs Temp 97.4 F L 12/08/19 08:00 Pulse 90 12/08/19 12:00 Resp 20 12/08/19 12:00 BP 86/57 12/08/19 12:00 Pulse Ox 96 12/08/19 12:00 Intake & Output 12/07/19 12/08/19 12/08/19 18:59 06:59 18:59 Intake Total 250 1000 120 Balance 250 1000 120 Weight 47 kg 47 kg Intake: Intake, IV Titration 1000 Amount Dextrose 5%-0.2% NaCl 1, 1000 000 ml @ 75 mls/hr IV . [id number] [facility] Rx#:[id number] Oral 250 0 120 Other: Voiding Method Diaper Diaper Diaper # Voids 1 1 0 - Exam PHYSICAL EXAMINATION: GENERAL: The patient is alert, not in any acute distress. Well developed, well nourished. HEENT: Pupils are round and equally reacting to light. EOMI. No scleral icterus. No conjunctival pallor. Normocephalic, atraumatic. No pharyngeal erythema. No thyromegaly. CARDIOVASCULAR: Atrial fibrillation. PULMONARY: Chest is clear to auscultation, no wheezing or crackles. ABDOMEN: Soft, nontender, nondistended, normoactive bowel sounds. No palpable organomegaly. MUSCULOSKELETAL: No joint swelling or deformity. EXTREMITIES: No cyanosis, clubbing, or pedal edema. NEUROLOGICAL: Gross neurological examination did not reveal any focal deficits. SKIN: No rashes. - Labs CBC & Chem 7: 12/08/19 07:09 12/08/19 07:09 Labs: Abnormal Lab Results - Last 24 Hours (Table) 12/08/19 12/08/19 12/08/19 Range/Units 07:09 07:09 07:09 MCV 103.2 H (80.0-100.0) fL MCHC 30.1 L (31.0-37.0) g/dL Chloride 108 H (98-107) mmol/L Carbon Dioxide 32 H (22-30) mmol/L BUN 30 H (7-17) mg/dL Glucose 119 H (74-99) mg/dL PTH Intact 193.7 H (14.0-72.0) pg/mL Assessment and Plan Assessment: 1. Paroxysmal atrial fibrillation with RVR - Patient remains rate controlled on metoprolol with Xarelto for anticoagulation - Consideration to PPM if patient continues to have persistent episodes of bradycardia 2. Acute on chronic systolic CHF; patient has been treated with Lasix 20 mg IV twice a day; patient is currently euvolemic; cardiology recommending to change Lasix to 20 mg by mouth twice a day 3. Vitamin B12 deficiency; continue with vitamin B12 supplement at thousand and 60 IM daily 4. Hypertension; metoprolol 25 mg twice a day, Entresto 2426 milligrams twice a day 5. Hyperlipidemia; Lipitor 10 mg by mouth daily at bedtime 6. Advanced dementia/depression; remains stable on Namenda 10 mg twice a day along with Seroquel for when necessary dosing; continue with current dose of Zoloft DVT prophylaxis; SCDs CODE STATUS; DO NOT RESUSCITATE
[2019-12-08] MEDS: RIVAROXABAN 15 MG TAB PO SCH (20:56)
[2019-12-08] MEDS: MELATONIN 5 MG TABLET PO PRN (20:56)
[2019-12-09] MEDS: ALBUTEROL NEBULIZED 2.5 MG/3 ML INHALATION SCH ×4 (07:41→21:02)
[2019-12-09] MEDS: METOPROLOL TARTRATE 25 MG TAB PO SCH (10:06)
[2019-12-09] MEDS: DEXTROSE 5%-0.2% NACL 1,000 ML IV SCH ×2 (10:06→20:05)
[2019-12-09] MEDS: FUROSEMIDE 20 MG TAB PO SCH ×2 (10:06→16:44)
[2019-12-09] MEDS: polyethylene glycoL 3350 17 GM POWD.PACK PO SCH (10:06)
[2019-12-09] MEDS: ATORVASTATIN 10 MG TAB PO SCH (10:06)
[2019-12-09] MEDS: MEMANTINE 10 MG TAB PO SCH ×2 (10:06→20:10)
[2019-12-09] MEDS: SACUBITRIL/VALSARTAN 24 MG-26 MG TABLET PO SCH ×2 (10:06→20:10)
[2019-12-09] MEDS: LORATADINE 10 MG TAB PO SCH (10:06)
[2019-12-09] MEDS: POTASSIUM CHLORIDE ER 10 MEQ TAB.ER.PRT PO SCH ×2 (10:06→20:10)
[2019-12-09] MEDS: SERTRALINE 50 MG TAB PO SCH (10:06)
[2019-12-09] MEDS: CYANOCOBALAMIN 1,000 MCG/ML 1 ML VIAL IM SCH (10:06)
[2019-12-09 11:08] LABS: Calcium 9.9 mg/dL (8.4-10.2); Potassium 3.5 mmol/L (3.5-5.1)
--- NOTE | 2019-12-09 15:36 | P.PN ---
Subjective Progress Note Date: 12/09/19 Principal diagnosis: Paroxysmal atrial fibrillation with RVR Acute on chronic systolic CHF Dementia with behavior disturbance 89-year-old female, history of episode of atrial fibrillation, hypertension, dementia. Patient is normally ambulatory and he has had some vague complaints of chest pain with walking. Daughter noticed that she was not acting right and was having more difficulty carrying on conversation. Urinalysis was taken to Dr. Hirsch's office which was reported as negative to the family. Home care was set up and home care nurse noted the patient had edema and concern for heart failure and recommended that the patient come in the hospital for evaluation. Patient has been evaluated by cardiology for paroxysmal A. fib with RVR and has been started on Xarelto for anticoagulation; patient was also in acute exacerbation of chronic systolic CHF upon admission and has been treated with IV Lasix Patient is currently being adjusted on medications for advanced dementia with behavior disturbance; neurology is on board; patient has been recommended to c ontinue Namenda 10 mg twice a day; Aricept has been discontinued for risk of cardiac conduction block; patient is started on Seroquel 25 mg daily at bedtime as needed for insomnia and behavioral disturbance; currently continuing with Zoloft 50 mg daily 12/07/2019 Today patient is followed up in room with patient's daughter at bedside; continued concern for poor oral intake; patient was discussed with dietary service, where recommending possible PEG tube placement for severe malnutrition; this was discussed with patient's daughter at bedside in great detail; according to daughter patient was very clear about no feeding tube when she was cognitively intact; noted does understand patient is severely malnourished and will continue to decline in absence of a feeding tube; we will continue with oral intake with frequent prompting during meals; patient remains on vitamin B12 supplement Currently rate controlled on Lopressor 25 mg twice a day with Xarelto 15 mg by mouth daily at bedtime for anticoagulation 12/08/2019 Patient is seen and evaluated in room at bedside; patient's family is present in the room; no specific concern; patient is more alert this morning Vital signs remained stable; Labs are reviewed with improved sodium level from 149 down to 144 this morning; patient was started on IV fluids in form of D5 0.2% normal saline; we will continue with IV fluids till oral intake improves Patient remains on Namenda 10 mg twice a day along with Seroquel 25 mg at at bedtime Patient discussed with case management in great detail; patient will be transferred to long-term care [facility] and Tuesday12/09/2019 Patient is seen and evaluated with daughter at bedside; patient is somewhat more alert and responsive today; daughter reports continued poor oral intake; patient does have supplemental shakes ordered; able to drink one shake daily Vital signs are reviewed and reveal soft blood pressure at 94 with 52 with pulse 94 and respirations 16 Laboratory review shows sodium of 138, BUN/creatinine of 27/0.86 Per discussion with patient's daughter, we will continue with nutritional supplements and no feeding tube despite poor oral intake; renal function and electrolytes have improved; we will discontinue IV fluids Patient is [facility] for discussion with case management Objective - Vital Signs Vital signs: Vital Signs Temp 97.8 F 12/09/19 12:47 Pulse 18 L 12/09/19 12:47 Resp 20 12/09/19 12:47 BP 94/52 12/09/19 12:47 Pulse Ox 97 12/09/19 12:47 Intake & Output 12/08/19 12/09/19 12/09/19 18:59 06:59 18:59 Intake Total 600 120 Balance 600 120 Weight 46.5 kg Intake: Oral 600 120 Other: Voiding Method Diaper Diaper Diaper # Voids 0 1 1 # Bowel Movements 1 - Exam PHYSICAL EXAMINATION: GENERAL: The patient is alert, not in any acute distress. Well developed, well nourished. HEENT: Pupils are round and equally reacting to light. EOMI. No scleral icterus. No conjunctival pallor. Normocephalic, atraumatic. No pharyngeal erythema. No thyromegaly. CARDIOVASCULAR: Atrial fibrillation. PULMONARY: Chest is clear to auscultation, no wheezing or crackles. ABDOMEN: Soft, nontender, nondistended, normoactive bowel sounds. No palpable organomegaly. MUSCULOSKELETAL: No joint swelling or deformity. EXTREMITIES: No cyanosis, clubbing, or pedal edema. NEUROLOGICAL: Gross neurological examination did not reveal any focal deficits. SKIN: No rashes. - Labs CBC & Chem 7: 12/08/19 07:09 12/09/19 10:32 Labs: Abnormal Lab Results - Last 24 Hours (Table) 12/09/19 Range/Units 10:32 BUN 27 H (7-17) mg/dL Glucose 124 H (74-99) mg/dL Assessment and Plan Assessment: 1. Paroxysmal atrial fibrillation with RVR - Patient remains rate controlled on metoprolol with Xarelto for anticoagulation - Consideration to PPM if patient continues to have persistent episodes of bradycardia 2. Acute on chronic systolic CHF; patient has been treated with Lasix 20 mg IV twice a day; patient is currently euvolemic; cardiology recommending to change Lasix to 20 mg by mouth twice a day 3. Vitamin B12 deficiency; continue with vitamin B12 supplement at thousand and 60 IM daily 4. Hypertension; metoprolol 25 mg twice a day, Entresto 2426 milligrams twice a day 5. Hyperlipidemia; Lipitor 10 mg by mouth daily at bedtime 6. Advanced dementia/depression; remains stable on Namenda 10 mg twice a day along with Seroquel for when necessary dosing; continue with current dose of Zoloft DVT prophylaxis; SCDs CODE STATUS; DO NOT RESUSCITATE
[2019-12-09] MEDS: METOPROLOL TARTRATE 12.5 MG TAB PO SCH (20:09)
[2019-12-09] MEDS: RIVAROXABAN 15 MG TAB PO SCH (20:10)
[2019-12-09] MEDS: QUEtiapine 25 MG TAB PO PRN (22:09)
[2019-12-10] MEDS: ALBUTEROL NEBULIZED 2.5 MG/3 ML INHALATION SCH ×4 (08:25→20:11)
[2019-12-10] MEDS: METOPROLOL TARTRATE 12.5 MG TAB PO SCH ×2 (08:51→21:34)
[2019-12-10] MEDS: FUROSEMIDE 20 MG TAB PO SCH ×2 (08:51→18:23)
[2019-12-10] MEDS: POTASSIUM CHLORIDE ER 10 MEQ TAB.ER.PRT PO SCH ×2 (08:51→21:34)
[2019-12-10] MEDS: LORATADINE 10 MG TAB PO SCH (08:51)
[2019-12-10] MEDS: polyethylene glycoL 3350 17 GM POWD.PACK PO SCH (08:51)
[2019-12-10] MEDS: SERTRALINE 50 MG TAB PO SCH (08:51)
[2019-12-10] MEDS: MEMANTINE 10 MG TAB PO SCH ×2 (08:51→21:34)
[2019-12-10] MEDS: SACUBITRIL/VALSARTAN 24 MG-26 MG TABLET PO SCH ×2 (08:51→21:34)
[2019-12-10] MEDS: ATORVASTATIN 10 MG TAB PO SCH (08:51)
[2019-12-10] MEDS: DEXTROSE 5%-0.2% NACL 1,000 ML IV SCH ×2 (11:07→21:00)
[2019-12-10 11:14] VITALS: BMI 22.1
--- NOTE | 2019-12-10 15:41 | P.PN ---
Subjective Progress Note Date: 12/10/19 12/10/2019: Patient's daughter was present today. States she slept well overnight. She was given Seroquel last night, as she has started to climb up the rails, started swinging. This morning she has been awake although sometimes gets groggy. Patient had transient run of V. tach, which will be addressed by primary physician. 12/07/2019: Patient's son was present today. Patient last night became somewhat agitated, restless, for which she received Seroquel 25 mg. Thereafter she slept. This morning she was awake and alert, but now seems to be sleeping again. Patient's son is comfortable with this regimen. 12/06/2019: Patient's son was present today. Patient apparently slept from noon yesterday, and woke up at around 7:30 AM this morning. Patient does get agitated and started swinging around. Otherwise quite alert and awake. 12/05/2019: Patient's daughter was present today. Patient has been very sleepy throughout the day. Not agitated. 12/04/2019: Patient was seen for a follow-up. Patient's son was present. Patient has face mask on. According to her son, patient has been somnolent. When she wakes up, does get agitated. No new concerns. 12/03/2019: Patient was seen for a follow-up. Patient was seen by Dr. Ren on 12/01/2019. Please refer to her note for details. Patient has advanced Alzheimer's dementia with agitation. Patient also has history of at rial fibrillation, dementia and hypertension. Patient admitted for high heart rate and bilateral ankle swelling. Patient has received some medication in the hospital, including Haldol, which made her very sleepy, worsening of her baseline level of functioning. Patient's daughter has been living with her for the last 7 years because of dementia. Patient has been on Aricept and Namenda. She is still quite functional, as patient eats by herself although patient's daughter lays food on the table for her. Patient also has aggressive behavior, agitation and anger issues. She was able to ambulate by herself. Patient was started on Seroquel for behavior probably triggered dementia. Patient's Aricept and Namenda were also discontinued. Objective - Vital Signs Vital signs: Vital Signs Temp 97.6 F 12/10/19 07:52 Pulse 95 12/10/19 08:00 Resp 16 12/10/19 08:00 BP 124/77 12/10/19 07:52 Pulse Ox 96 12/10/19 07:52 Intake & Output 12/09/19 12/10/19 12/10/19 18:59 06:59 18:59 Intake Total 220 360 Balance 220 360 Weight 60.5 kg 60.5 kg Intake: Oral 220 360 Other: Voiding Method Diaper Diaper Diaper Incontinent # Voids 2 1 3 # Bowel Movements 1 - Exam Patient was awake when I entered the room, when I started talking to the daughter, she went to sleep. Per daughter, she is stable, moves all 4 extremities normally. Mentation is stable. - Labs CBC & Chem 7: 12/08/19 07:09 12/09/19 10:32 Assessment and Plan Assessment: * Advanced Alzheimer's dementia, with behavioral disturbance. * Altered mental status, likely due to delirium related to hospitalization/medications. * Atrial fibrillation on long-term anticoagulation Plan: * Continue Namenda 10 mg twice a day. Because of risk of cardiac conduction b lock, stay off Aricept. * Continue Seroquel to 25 mg at bedtime as needed. Continue Zoloft 50 mg every morning. Patient's daughter is comfortable with this regimen. * Patient's thyroid functions are normal. * B12 slightly low 280, continue B12 replacement, with monthly B12 injections. Folic acid 11.7. * Neurologically clear for discharge. Possible transfer to [facility] today. Discussed with tape keller operator. * Neurology will sign off.
--- NOTE | 2019-12-10 18:54 | PN ---
PROGRESS NOTE DATE OF SERVICE: 12/10/2019 CHIEF COMPLAINT: Atrial fibrillation with rapid ventricular response, congestive heart failure, dementia and delirium. HISTORY OF PRESENT ILLNESS: This lady is doing well. She was supposed to go to the snf today, but apparently the snf wants her to be on a regular dose of mood stabilizer (Seroquel). It is not clear as to why this is being requested. There is also concern that in the snf this will appear to be chemical restraint. For the sake of moving her quickly from the hospital to the snf, I will place her on Seroquel 25 mg every day at bedtime. PHYSICAL EXAMINATION: Chest is clear. The cardiac exam demonstrates her atrial fibrillation. The abdomen is soft and nontender. Extremities are normal. IMPRESSION: 1. Atrial fibrillation with rapid ventricular response. 2. Congestive heart failure. 3. Dementia. 4. Delirium. PLAN: Seroquel 25 mg every night and move to snf as soon as possible. MMODL / IJN: [id number] /
[2019-12-10] MEDS: CYANOCOBALAMIN 1,000 MCG/ML 1 ML VIAL IM SCH (21:34)
[2019-12-10] MEDS: QUEtiapine 25 MG TAB PO SCH (21:34)
[2019-12-10] MEDS: RIVAROXABAN 15 MG TAB PO SCH (21:34)
[2019-12-11] MEDS: ALBUTEROL NEBULIZED 2.5 MG/3 ML INHALATION SCH ×4 (07:42→20:17)
[2019-12-11] MEDS: METOPROLOL TARTRATE 12.5 MG TAB PO SCH ×2 (08:36→21:49)
[2019-12-11] MEDS: FUROSEMIDE 20 MG TAB PO SCH ×2 (08:36→16:28)
[2019-12-11] MEDS: SERTRALINE 50 MG TAB PO SCH (08:37)
[2019-12-11] MEDS: LORATADINE 10 MG TAB PO SCH (08:37)
[2019-12-11] MEDS: ATORVASTATIN 10 MG TAB PO SCH (08:37)
[2019-12-11] MEDS: MEMANTINE 10 MG TAB PO SCH ×2 (08:37→21:49)
[2019-12-11] MEDS: SACUBITRIL/VALSARTAN 24 MG-26 MG TABLET PO SCH ×2 (08:38→21:49)
[2019-12-11] MEDS: polyethylene glycoL 3350 17 GM POWD.PACK PO SCH (08:38)
[2019-12-11] MEDS: CYANOCOBALAMIN 1,000 MCG/ML 1 ML VIAL IM SCH (10:20)
[2019-12-11] MEDS: POTASSIUM CHLORIDE ER 10 MEQ TAB.ER.PRT PO SCH ×2 (10:21→21:49)
--- NOTE | 2019-12-11 17:33 | DS ---
DISCHARGE SUMMARY DATE OF DISCHARGE: 12/11/2019 CHIEF COMPLAINT: Rapid heart beating. HISTORY OF PRESENT ILLNESS AND PHYSICAL EXAMINATION: Details of this lady's history and physical can be found in the initial workup. She was sent to the hospital by a home care worker who thought her heart was beating "too fast." She presented with atrial fibrillation with a rapid ventricular response of around 110 to 120 beats per minute. She was in mild heart failure. COURSE IN THE HOSPITAL: After admission she was placed on bedrest, started intravenous fluids and started on Cardizem drip. However, her rate remained elevated throughout her entire hospitalization, running up as high as around 130 ventricular beats per minute. She had several episodes where she developed bradycardia down into the 30s, which seemed to be asymptomatic. She was seen and followed by Cardiology. She was started on a low- dose beta kirby. She had some problems with delirium, but family was in attendance essentially all the time, which helped. The decision was made that [facility] would have [facility] therapy and rehab. This took several days to arrange, and a bed was available at [facility] on December 10. She will be transferred there. FINAL DIAGNOSES: 1. Atrial fibrillation with rapid ventricular response. 2. Class 2 [place] Heart Classification, congestive heart failure. 3. Dementia. 4. Delirium. OPERATIONS: None. CONSULTATIONS: 1. Cardiology. 2. Neurology. She is improved. CHRISTIANO / JAVI: [id number] /
[2019-12-11] MEDS: DEXTROSE 5%-0.2% NACL 1,000 ML IV SCH (18:48)
[2019-12-11] MEDS: RIVAROXABAN 15 MG TAB PO SCH (21:49)
[2019-12-11] MEDS: QUEtiapine 25 MG TAB PO SCH (21:49)
[2019-12-12] MEDS: DEXTROSE 5%-0.2% NACL 1,000 ML IV SCH ×2 (02:58→10:44)
[2019-12-12 06:44] VITALS: PULSE 104; TEMP 98.2
[2019-12-12] MEDS: ALBUTEROL NEBULIZED 2.5 MG/3 ML INHALATION SCH ×2 (07:39→10:44)
[2019-12-12] MEDS: POTASSIUM CHLORIDE ER 10 MEQ TAB.ER.PRT PO SCH (08:01)
[2019-12-12] MEDS: METOPROLOL TARTRATE 12.5 MG TAB PO SCH (08:01)
[2019-12-12] MEDS: LORATADINE 10 MG TAB PO SCH (08:01)
[2019-12-12] MEDS: FUROSEMIDE 20 MG TAB PO SCH ×2 (08:01→10:44)
[2019-12-12] MEDS: CYANOCOBALAMIN 1,000 MCG/ML 1 ML VIAL IM SCH (08:01)
[2019-12-12] MEDS: MEMANTINE 10 MG TAB PO SCH (08:01)
[2019-12-12] MEDS: ATORVASTATIN 10 MG TAB PO SCH (08:01)
[2019-12-12] MEDS: SACUBITRIL/VALSARTAN 24 MG-26 MG TABLET PO SCH (08:01)
[2019-12-12] MEDS: SERTRALINE 50 MG TAB PO SCH (08:01)
[2019-12-12] MEDS: polyethylene glycoL 3350 17 GM POWD.PACK PO SCH (10:44)
[2019-12-12 10:46] VITALS: BP 123/73; RESP 17
--- NOTE | 2019-12-12 22:39 | PN ---
PROGRESS NOTE DATE OF SERVICE: 12/12/2019 CHIEF COMPLAINT: Atrial fibrillation, congestive heart failure and dementia. HISTORY OF PRESENT ILLNESS: This lady apparently did not get out of the hospital and get to the long term yesterday. There has been no interval change. She is doing well. PHYSICAL EXAMINATION: Cardiac exam demonstrates her atrial fibrillation with a heart rate of around 100. Chest is clear. Abdomen is soft and non-tender. IMPRESSION: 1. Atrial fibrillation with rapid ventricular response. 2. Congestive heart failure. 3. Dementia. 4. Delirium. PLAN: [facility]. MMODL / IJN: [id number] /
== END 2019-12-12 10:44 | DRG 308 ==
LOC: EC 12:57 → 3SCARD 16:21
PROVIDERS: ADMIT Family Medicine; ATTEND Family Medicine
DX: I48.0 Paroxysmal atrial fibrillation (principal); I50.23 Acute on chronic systolic (congestive) heart failure; F02.81 Dementia in other diseases classified elsewhere, unspecified severity, with behavioral disturbance; F05 Delirium due to known physiological condition; I47.2 Ventricular tachycardia; I27.20 Pulmonary hypertension, unspecified; I49.5 Sick sinus syndrome; I42.9 Cardiomyopathy, unspecified; I11.0 Hypertensive heart disease with heart failure; G30.9 Alzheimer's disease, unspecified; I08.1 Rheumatic disorders of both mitral and tricuspid valves; Z66 Do not resuscitate; E78.5 Hyperlipidemia, unspecified; E87.6 Hypokalemia; E53.8 Deficiency of other specified B group vitamins; F32.9 Major depressive disorder, single episode, unspecified; M19.90 Unspecified osteoarthritis, unspecified site; Z79.01 Long term (current) use of anticoagulants; Z79.899 Other long term (current) drug therapy; Z87.891 Personal history of nicotine dependence; Z87.19 Personal history of other diseases of the digestive system; Z90.49 Acquired absence of other specified parts of digestive tract; Z90.710 Acquired absence of both cervix and uterus; Z87.42 Personal history of other diseases of the female genital tract; Z86.73 Personal history of transient ischemic attack (TIA), and cerebral infarction without residual deficits; Z85.71 Personal history of Hodgkin lymphoma; Z92.21 Personal history of antineoplastic chemotherapy; Z98.890 Other specified postprocedural states; Z88.0 Allergy status to penicillin; Z88.2 Allergy status to sulfonamides; Z80.1 Family history of malignant neoplasm of trachea, bronchus and lung; Z83.3 Family history of diabetes mellitus; Z82.3 Family history of stroke
CPT/HCPCS: 36415; 71045; 71046; 80048; 80053; 81001; 82607; 82746; 83735; 83880; 83970; 84132; 84439; 84443; 84484; 85025; 85379; 85610; 85730; 93005; 93306; 94640; 94760; 96365; 96366; 96367; 96375; 96376; 99285